=== PATIENT | female | born 1975 | race Caucasian/White ===

== ENCOUNTER 2017-07-07 08:33 | Inpatient (IN) | payer OTHER ==
[~2017-07-07 08:33] MED LIST: ACETAMINOPHEN 325 MG TAB PO; ALBUTEROL/IPRATROPIUM (NEB) 3 ML AMP NEB; BISACODYL (EC) 5 MG TAB PO; DOCUSATE SODIUM 100 MG CAP PO; LORAZEPAM 0.5 MG TAB PO; NACL 0.9% 3 ML SYG IV
[2017-07-07] MEDS ORDERED: METOPROLOL 25 MG TAB PO (09:00)
[2017-07-07] MEDS: ALBUTEROL/IPRATROPIUM (NEB) 3 ML AMP NEB ×4 (09:00→20:00)
[2017-07-07] MEDS ORDERED: hydrALAzine 20 MG INJ IV (09:30)
[2017-07-07] MEDS: PANTOPRAZOLE 40 MG INJ IV (09:57)
[2017-07-07] MEDS: CALCIUM CARBONATE 500 MG CHEW TAB PO ×4 (09:57→20:07)
[2017-07-07] MEDS: ASPIRIN 81 MG TAB PO (09:57)
[2017-07-07] MEDS: LEVOFLOXACIN 500 MG TAB PO (09:57)
[2017-07-07] MEDS: SOD CHLORIDE 0.9% 1,000 ML IV (09:58)
[2017-07-07] MEDS: ATENOLOL 50 MG TAB PO (09:58)
[2017-07-07] MEDS: morphine 2 MG INJ IV ×3 (09:59→20:06)
[2017-07-07 10:20] LABS: ADD MAN DIFF? NO
[2017-07-07 10:24] LABS: BASOPHIL # 0.1 10^3/ul (0.0-0.1); BASOPHILS % 0.4 % (0.0-2.0); EOSINOPHILS # 0.4 10^3/ul (0.0-0.5); EOSINOPHILS % 3.2 % (0.0-7.0); HEMATOCRIT 37.1 % (37.0-47.0); LYMPHOCYTES # 3.9 10^3/ul (0.8-2.9); LYMPHOCYTES % 27.8 % (15.0-51.0); MEAN CORPUSCULAR HEMOGLOBIN 25.7 pg (29.0-33.0); MEAN CORPUSCULAR HGB CONC 29.6 g/dl (32.0-37.0); MEAN CORPUSCULAR VOLUME 86.7 fl (82.0-101.0); MEAN PLATELET VOLUME 10.5 fl (7.4-10.4); MONOCYTES % 7.1 % (0.0-11.0); NEUTROPHIL # 8.4 10^3/ul (1.6-7.5); PLATELET COUNT 315 10^3/UL (140-415); RED BLOOD COUNT 4.28 10^6/ul (4.20-5.40); RED CELL DISTRIBUTION WIDTH 16.3 % (11.5-14.5)
[2017-07-07 10:24] LABS: WHITE BLOOD COUNT 13.8 10^3/ul (4.8-10.8)
[2017-07-07] MEDS: ONDANSETRON 4 MG INJ IV (10:34)
[2017-07-07 11:16] LABS: ANION GAP 14 (8-16); BLOOD UREA NITROGEN 28 mg/dl (7-20); CALCIUM 8.3 mg/dl (8.4-10.2); CARBON DIOXIDE 29 mmol/L (21-31); CHLORIDE 104 mmol/L (97-110); CREATINE KINASE 46 IU/L (23-200); CREATININE 0.69 mg/dl (0.44-1.00); GLUCOSE 78 mg/dl (70-220); POTASSIUM 4.4 mmol/L (3.5-5.1); SODIUM 143 mmol/L (135-144)
[2017-07-07 11:28] LABS: CK INDEX 2.7; CK-MB 1.26 ng/ml (0.0-2.4)
[2017-07-07 11:29] LABS: TROPONIN-I < 0.012 ng/ml (0.00-0.12)
[2017-07-07 13:36] LABS: ADD UMIC YES; UR ASCORBIC ACID NEGATIVE (NEGATIVE); UR BILIRUBIN (Dip) NEGATIVE (NEGATIVE); UR BLOOD (Dip) 3+ mg/dL (NEGATIVE); UR CLARITY SLIGHTLY CLOUDY (CLEAR); UR COLOR RED (YELLOW); UR GLUCOSE (Dip) NEGATIVE (NEGATIVE); UR KETONES (Dip) NEGATIVE (NEGATIVE); UR LEUKOCYTE ESTERASE (Dip) NEGATIVE Leu/ul (NEGATIVE); UR NITRITE (Dip) NEGATIVE (NEGATIVE); UR RBC > 182 /HPF (0-5); UR SPECIFIC GRAVITY (Dip) 1.023 (1.003-1.030); UR TOTAL PROTEIN (Dip) 2+ mg/dl (NEGATIVE); UR UROBILINOGEN (Dip) NEGATIVE (NEGATIVE); UR WBC 1 /HPF (0-5)
[2017-07-07 14:03] LABS: AMPHETAMINE/METHAMPHETAMINE NEGATIVE (NEGATIVE); BARBITURATES NEGATIVE (NEGATIVE); CANNABINOIDS NEGATIVE (NEGATIVE); COCAINE NEGATIVE (NEGATIVE)
[2017-07-07] MEDS: NAPROXEN 500 MG TAB PO ×2 (14:05→20:07)
[2017-07-07 14:06] LABS: BENZODIAZEPINES POSITIVE (NEGATIVE); OPIATES POSITIVE (NEGATIVE)
[2017-07-07] MEDS: NICOTINE (14 MG/24 HR) PATCH TRANSDERM (16:26)
[2017-07-07] MEDS: LORAZEPAM 2 MG INJ IV (16:32)
[2017-07-07] MEDS: ATORVASTATIN 20 MG TAB PO (20:06)
[2017-07-07] MEDS ORDERED: ZOLPIDEM 5 MG TAB PO (21:00)
[2017-07-08] MEDS: LORAZEPAM 2 MG INJ IV (00:08)
[2017-07-08] MEDS: HYDROCODONE/APAP (5/325) TAB PO ×2 (00:09→09:03)
[2017-07-08] MEDS: ALBUTEROL/IPRATROPIUM (NEB) 3 ML AMP NEB ×4 (00:20→12:58)
[2017-07-08] MEDS: LEVOFLOXACIN 500 MG TAB PO (06:39)
[2017-07-08] MEDS: morphine 2 MG INJ IV ×2 (06:39→10:54)
[2017-07-08] MEDS: PANTOPRAZOLE 40 MG INJ IV (06:39)
[2017-07-08] MEDS: ASPIRIN 81 MG TAB PO (08:47)
[2017-07-08] MEDS: ATENOLOL 50 MG TAB PO (08:47)
[2017-07-08] MEDS: NAPROXEN 500 MG TAB PO (08:47)
[2017-07-08] MEDS: CALCIUM CARBONATE 500 MG CHEW TAB PO ×2 (08:47→13:00)
[2017-07-08] MEDS: NICOTINE (14 MG/24 HR) PATCH TRANSDERM (08:48)
[2017-07-08 09:16] LABS: ADD MAN DIFF? NO
[2017-07-08 09:24] LABS: WHITE BLOOD COUNT 11.1 10^3/ul (4.8-10.8)
[2017-07-08 09:24] LABS: ABNORMAL IP MESSAGE 1; BASOPHIL # 0.1 10^3/ul (0.0-0.1); BASOPHILS % 0.5 % (0.0-2.0); EOSINOPHILS # 0.3 10^3/ul (0.0-0.5); EOSINOPHILS % 2.5 % (0.0-7.0); HEMATOCRIT 40.1 % (37.0-47.0); HEMOGLOBIN 11.6 g/dl (12.0-16.0); LYMPHOCYTES % 26.7 % (15.0-51.0); MEAN CORPUSCULAR HGB CONC 28.9 g/dl (32.0-37.0); MEAN CORPUSCULAR VOLUME 86.4 fl (82.0-101.0); MEAN PLATELET VOLUME 11.1 fl (7.4-10.4); MONOCYTE # 0.8 10^3/ul (0.3-0.9); MONOCYTES % 7.6 % (0.0-11.0); NEUTROPHIL # 6.9 10^3/ul (1.6-7.5); NEUTROPHILS % 62.4 % (39.0-77.0); PLATELET COUNT 311 10^3/UL (140-415); RED BLOOD COUNT 4.64 10^6/ul (4.20-5.40); RED CELL DISTRIBUTION WIDTH 16.7 % (11.5-14.5)
[2017-07-08 09:27] LABS: POSITIVE DIFF @See below
[2017-07-08 09:46] LABS: ANION GAP 14 (8-16); BLOOD UREA NITROGEN 29 mg/dl (7-20); CALCIUM 8.9 mg/dl (8.4-10.2); CARBON DIOXIDE 28 mmol/L (21-31); CHLORIDE 104 mmol/L (97-110); CREATININE 0.74 mg/dl (0.44-1.00); GLUCOSE 87 mg/dl (70-220); POTASSIUM 4.5 mmol/L (3.5-5.1); SODIUM 141 mmol/L (135-144)
[2017-07-08 11:23] LABS: CHOLESTEROL 162 mg/dl (100-200)
[2017-07-08 11:23] LABS: CHOL/HDL RATIO 3.4 RATIO; HDL CHOLESTEROL 47 mg/dl (34-88); LDL CHOLESTEROL,CALCULATED 82 mg/dl; TRIGLYCERIDES 167 mg/dl (0-149)
[2017-07-08 11:28] LABS: HEMOGLOBIN A1C 6.1 % (0-5.9)
[2017-07-08] MEDS: INFLUENZA VIRUS VACCINE 0.5 ML SYG IM* (12:00)
[2017-07-08] MEDS ORDERED: morphine LIQ (10 MG/5 ML) CUP PO (14:30)
== END 2017-07-08 14:50 | disposition home or self-care (01) | DRG 313 ==
LOC: TEL 08:33
DX: R07.89 Other chest pain (principal); Z68.43 Body mass index [BMI] 50.0-59.9, adult; Z99.81 Dependence on supplemental oxygen; G47.30 Sleep apnea, unspecified; J45.909 Unspecified asthma, uncomplicated; R10.9 Unspecified abdominal pain; R06.02 Shortness of breath; K59.09 Other constipation; M54.30 Sciatica, unspecified side; F17.200 Nicotine dependence, unspecified, uncomplicated; E66.01 Morbid (severe) obesity due to excess calories; E78.5 Hyperlipidemia, unspecified; F41.9 Anxiety disorder, unspecified; I10 Essential (primary) hypertension; R73.03 Prediabetes
CPT/HCPCS: 80048; 80061; 80307; 81001; 82550; 82553; 83036; 84443; 84484; 85025; 85378; 87086; 93306; 94640; 94660; 94664; 97161

== ENCOUNTER 2017-07-10 22:15 | Emergency (ER) | payer OTHER ==
[2017-07-10 23:49] LABS: ADD MAN DIFF? NO; BASOPHIL # 0.1 10^3/ul (0.0-0.1); BASOPHILS % 0.5 % (0.0-2.0); EOSINOPHILS # 0.3 10^3/ul (0.0-0.5); EOSINOPHILS % 2.3 % (0.0-7.0); HEMATOCRIT 38.7 % (37.0-47.0); HEMOGLOBIN 11.6 g/dl (12.0-16.0); LYMPHOCYTES # 2.8 10^3/ul (0.8-2.9); LYMPHOCYTES % 24.1 % (15.0-51.0); MEAN CORPUSCULAR HEMOGLOBIN 25.3 pg (29.0-33.0); MEAN CORPUSCULAR VOLUME 84.5 fl (82.0-101.0); MONOCYTE # 0.7 10^3/ul (0.3-0.9); MONOCYTES % 6.2 % (0.0-11.0); NEUTROPHIL # 7.8 10^3/ul (1.6-7.5); NEUTROPHILS % 66.5 % (39.0-77.0); PLATELET COUNT 307 10^3/UL (140-415); RED BLOOD COUNT 4.58 10^6/ul (4.20-5.40)
[2017-07-10 23:49] LABS: WHITE BLOOD COUNT 11.7 10^3/ul (4.8-10.8)
[2017-07-11] MEDS: LORAZEPAM 1 MG TAB PO (00:07)
[2017-07-11 00:15] LABS: ANION GAP 12 (8-16); BLOOD UREA NITROGEN 19 mg/dl (7-20); CALCIUM 8.6 mg/dl (8.4-10.2); CARBON DIOXIDE 33 mmol/L (21-31); CHLORIDE 102 mmol/L (97-110); CREATININE 0.84 mg/dl (0.44-1.00); GLUCOSE 135 mg/dl (70-220); INR 0.94; POTASSIUM 3.6 mmol/L (3.5-5.1); PROTIME 12.7 Sec (11.9-14.9); SODIUM 143 mmol/L (135-144)
[2017-07-11 00:16] LABS: PARTIAL THROMBOPLASTIN TIME 27.7 Sec (25.0-35.0)
[2017-07-11 00:28] LABS: B-TYPE NATRIURETIC PEPTIDE 2970 PG/ML (0-125)
[2017-07-11 00:34] LABS: TROPONIN-I < 0.012 ng/ml (0.00-0.12)
[2017-07-11] MEDS: FUROSEMIDE 40 MG INJ IV (00:48)
[2017-07-11 00:55] LABS: ETHANOL < 10.0 mg/dl
[2017-07-11 01:01] LABS: BENZODIAZEPINES Negative (NEGATIVE)
[2017-07-11 01:05] LABS: URINE BLOOD (Dip) POC Negative (NEGATIVE); URINE GLUCOSE (Dip) POC Negative (NEGATIVE); URINE KETONES (Dip) POC Negative (NEGATIVE); URINE LEUKOCYTE EST (Dip) POC Negative (NEGATIVE); URINE NITRITE (Dip) POC Negative (NEGATIVE); URINE TOTAL PROTEIN POC Negative (NEGATIVE)
[2017-07-11 03:26] LABS: AMPHETAMINE/METHAMPHETAMINE Negative (NEGATIVE); BARBITURATES Negative (NEGATIVE); CANNABINOIDS Negative (NEGATIVE); COCAINE Negative (NEGATIVE); OPIATES Positive (NEGATIVE)
== END 2017-07-11 02:05 | disposition home or self-care (01) ==
LOC: E/R 07-11 02:05
DX: I50.9 Heart failure, unspecified (principal); F41.9 Anxiety disorder, unspecified; E86.0 Dehydration; J45.909 Unspecified asthma, uncomplicated; I10 Essential (primary) hypertension; F17.210 Nicotine dependence, cigarettes, uncomplicated
CPT/HCPCS: 36415; 71045; 80048; 80306; 80307; 81003; 81025; 83880; 84484; 85025; 85378; 85610; 85730; 93005; 93970; 96374; 99285-25

== ENCOUNTER 2017-08-11 00:03 | Emergency (ER) | payer OTHER ==
[2017-08-11 01:56] LABS: ADD MAN DIFF? NO
[2017-08-11 02:00] LABS: BASOPHIL # 0.1 10^3/ul (0.0-0.1); BASOPHILS % 0.7 % (0.0-2.0); EOSINOPHILS # 0.3 10^3/ul (0.0-0.5); EOSINOPHILS % 2.1 % (0.0-7.0); HEMATOCRIT 39.4 % (37.0-47.0); HEMOGLOBIN 11.8 g/dl (12.0-16.0); LYMPHOCYTES # 3.1 10^3/ul (0.8-2.9); LYMPHOCYTES % 20.5 % (15.0-51.0); MEAN CORPUSCULAR HEMOGLOBIN 25.1 pg (29.0-33.0); MEAN CORPUSCULAR HGB CONC 29.9 g/dl (32.0-37.0); MEAN CORPUSCULAR VOLUME 83.7 fl (82.0-101.0); MEAN PLATELET VOLUME 10.6 fl (7.4-10.4); MONOCYTE # 0.7 10^3/ul (0.3-0.9); MONOCYTES % 4.9 % (0.0-11.0); NEUTROPHIL # 10.8 10^3/ul (1.6-7.5); NEUTROPHILS % 71.5 % (39.0-77.0); PLATELET COUNT 347 10^3/UL (140-415); RED BLOOD COUNT 4.71 10^6/ul (4.20-5.40); RED CELL DISTRIBUTION WIDTH 16.3 % (11.5-14.5)
[2017-08-11 02:00] LABS: WHITE BLOOD COUNT 15.1 10^3/ul (4.8-10.8)
[2017-08-11 02:21] LABS: CREATINE KINASE 36 IU/L (23-200)
[2017-08-11 02:24] LABS: ALANINE AMINOTRANSFERASE 22 IU/L (13-69); ALBUMIN 3.7 g/dl (3.3-4.9); ALBUMIN/GLOBULIN RATIO 0.88; ALKALINE PHOSPHATASE 82 IU/L (42-121); ANION GAP 11 (8-16); ASPARTATE AMINO TRANSFERASE 24 IU/L (15-46); BILIRUBIN,INDIRECT 0.3 mg/dl (0-1.1); BILIRUBIN,TOTAL 0.3 mg/dl (0.2-1.3); BLOOD UREA NITROGEN 21 mg/dl (7-20); CALCIUM 8.9 mg/dl (8.4-10.2); CARBON DIOXIDE 29 mmol/L (21-31); CHLORIDE 105 mmol/L (97-110); CREATININE 0.76 mg/dl (0.44-1.00); GLUCOSE 103 mg/dl (70-220); POTASSIUM 4.4 mmol/L (3.5-5.1); SODIUM 141 mmol/L (135-144); TOTAL PROTEIN 7.9 g/dl (6.1-8.1)
[2017-08-11 02:34] LABS: CK INDEX 5.7; CK-MB 2.05 ng/ml (0.0-2.4); TROPONIN-I 0.013 ng/ml (0.00-0.12)
[2017-08-11 02:35] LABS: B-TYPE NATRIURETIC PEPTIDE 1320 PG/ML (0-125); TROPONIN-I 0.014 ng/ml (0.00-0.12)
[2017-08-11] MEDS ORDERED: LORAZEPAM 2 MG INJ (03:10)
[2017-08-11] MEDS: LORAZEPAM 2 MG INJ IV (03:24)
== END 2017-08-11 09:20 | disposition home or self-care (01) ==
LOC: E/R 00:03
DX: R07.9 Chest pain, unspecified (principal); F41.9 Anxiety disorder, unspecified; J44.9 Chronic obstructive pulmonary disease, unspecified; I10 Essential (primary) hypertension; I50.9 Heart failure, unspecified; F17.210 Nicotine dependence, cigarettes, uncomplicated; Z79.82 Long term (current) use of aspirin
CPT/HCPCS: 36415; 71045; 80053; 82550; 82553; 82962; 83880; 84484; 85025; 93005; 96374; 99285-25

== ENCOUNTER 2017-09-06 19:42 | Emergency (ER) | payer OTHER ==
[2017-09-06] MEDS: FUROSEMIDE 40 MG INJ IV (20:37)
[2017-09-06] MEDS: IBUPROFEN 800 MG TAB PO (20:37)
[2017-09-06] MEDS: LORAZEPAM 1 MG TAB PO (20:48)
[2017-09-06] MEDS: KETOROLAC 30 MG INJ IV (20:48)
[2017-09-06 20:52] LABS: ADD MAN DIFF? NO
[2017-09-06 20:54] LABS: BASOPHIL # 0.1 10^3/ul (0.0-0.1); BASOPHILS % 0.5 % (0.0-2.0); EOSINOPHILS # 0.4 10^3/ul (0.0-0.5); EOSINOPHILS % 3.2 % (0.0-7.0); HEMATOCRIT 38.9 % (37.0-47.0); HEMOGLOBIN 11.4 g/dl (12.0-16.0); LYMPHOCYTES # 2.6 10^3/ul (0.8-2.9); LYMPHOCYTES % 22.3 % (15.0-51.0); MEAN CORPUSCULAR HEMOGLOBIN 24.8 pg (29.0-33.0); MEAN CORPUSCULAR HGB CONC 29.3 g/dl (32.0-37.0); MEAN CORPUSCULAR VOLUME 84.6 fl (82.0-101.0); MEAN PLATELET VOLUME 10.7 fl (7.4-10.4); MONOCYTE # 0.8 10^3/ul (0.3-0.9); MONOCYTES % 7.1 % (0.0-11.0); NEUTROPHIL # 7.8 10^3/ul (1.6-7.5); NEUTROPHILS % 66.6 % (39.0-77.0); PLATELET COUNT 337 10^3/UL (140-415); RED CELL DISTRIBUTION WIDTH 16.2 % (11.5-14.5)
[2017-09-06 20:54] LABS: WHITE BLOOD COUNT 11.6 10^3/ul (4.8-10.8)
[2017-09-06 21:29] LABS: ANION GAP 19 (8-16); BLOOD UREA NITROGEN 18 mg/dl (7-20); CALCIUM 9.1 mg/dl (8.4-10.2); CARBON DIOXIDE 24 mmol/L (21-31); CHLORIDE 106 mmol/L (97-110); GLUCOSE 76 mg/dl (70-220); POTASSIUM 4.3 mmol/L (3.5-5.1); SODIUM 145 mmol/L (135-144)
[2017-09-06 21:43] LABS: TROPONIN-I < 0.012 ng/ml (0.000-0.120)
== END 2017-09-06 22:05 | disposition home or self-care (01) ==
LOC: E/R 19:42
DX: R07.9 Chest pain, unspecified (principal); R06.00 Dyspnea, unspecified; I10 Essential (primary) hypertension; E11.9 Type 2 diabetes mellitus without complications; I50.9 Heart failure, unspecified; J45.909 Unspecified asthma, uncomplicated; J44.9 Chronic obstructive pulmonary disease, unspecified; F17.210 Nicotine dependence, cigarettes, uncomplicated; Z79.82 Long term (current) use of aspirin; Z79.84 Long term (current) use of oral hypoglycemic drugs
CPT/HCPCS: 36415; 71045; 80048; 84484; 85025; 96374; 96375; 99285-25

== ENCOUNTER 2017-09-13 16:57 | Emergency (ER) | payer OTHER ==
[2017-09-13 18:01] LABS: URINE PH (Dip) POC 6.5 (5.0-8.5)
[2017-09-13 18:01] LABS: URINE BLOOD (Dip) POC 3+ (NEGATIVE); URINE GLUCOSE (Dip) POC Negative (NEGATIVE); URINE KETONES (Dip) POC Negative (NEGATIVE); URINE LEUKOCYTE EST (Dip) POC Negative (NEGATIVE); URINE NITRITE (Dip) POC Negative (NEGATIVE); URINE TOTAL PROTEIN POC 3+ (NEGATIVE)
[2017-09-13 18:38] LABS: ADD UMIC YES; UR AMORPHOUS CRYSTAL MODERATE /HPF (NONE SEEN); UR ASCORBIC ACID NEGATIVE (NEGATIVE); UR BACTERIA MODERATE /HPF (NONE SEEN); UR BILIRUBIN (Dip) NEGATIVE (NEGATIVE); UR BLOOD (Dip) 2+ mg/dL (NEGATIVE); UR CLARITY TURBID (CLEAR); UR COLOR YELLOW (YELLOW); UR GLUCOSE (Dip) 1+ mg/dL (NEGATIVE); UR KETONES (Dip) NEGATIVE (NEGATIVE); UR LEUKOCYTE ESTERASE (Dip) TRACE Leu/ul (NEGATIVE); UR NITRITE (Dip) NEGATIVE (NEGATIVE); UR NONSQUAMOUS EPITHELIAL CELL 2 /HPF (NONE SEEN); UR RBC 110 /HPF (0-5); UR SPECIFIC GRAVITY (Dip) 1.028 (1.003-1.030); UR TOTAL PROTEIN (Dip) 3+ mg/dl (NEGATIVE); UR UROBILINOGEN (Dip) NEGATIVE (NEGATIVE); UR WBC 112 /HPF (0-5)
[2017-09-13] MEDS: morphine 4 MG/ML VIAL IV (19:30)
[2017-09-13] MEDS: SOD CHLORIDE 0.9% 500 ML IV (19:30)
[2017-09-13] MEDS: CEFTRIAXONE 1 GM/50 ML (PMX) 50 ML IVPB (19:30)
[2017-09-13] MEDS: KETOROLAC 30 MG INJ IV (19:31)
[2017-09-13] MEDS: ONDANSETRON 4 MG INJ IV (19:31)
== END 2017-09-13 21:30 | disposition home or self-care (01) ==
LOC: E/R 16:57
DX: N12 Tubulo-interstitial nephritis, not specified as acute or chronic (principal); J44.9 Chronic obstructive pulmonary disease, unspecified; I10 Essential (primary) hypertension; I50.9 Heart failure, unspecified; F17.210 Nicotine dependence, cigarettes, uncomplicated; Z79.82 Long term (current) use of aspirin; Z79.84 Long term (current) use of oral hypoglycemic drugs
CPT/HCPCS: 81001; 81003; 96374; 96375; 99284-25

== ENCOUNTER 2017-10-24 23:12 | Emergency (ER) | payer OTHER, MEDICAID ==
[2017-10-25 03:32] LABS: ADD MAN DIFF? NO
[2017-10-25 03:37] LABS: BASOPHIL # 0.1 10^3/ul (0.0-0.1); BASOPHILS % 0.7 % (0.0-2.0); EOSINOPHILS # 0.4 10^3/ul (0.0-0.5); EOSINOPHILS % 3.3 % (0.0-7.0); HEMATOCRIT 36.5 % (37.0-47.0); HEMOGLOBIN 10.7 g/dl (12.0-16.0); LYMPHOCYTES # 2.5 10^3/ul (0.8-2.9); LYMPHOCYTES % 22.5 % (15.0-51.0); MEAN CORPUSCULAR HEMOGLOBIN 23.9 pg (29.0-33.0); MEAN CORPUSCULAR HGB CONC 29.3 g/dl (32.0-37.0); MEAN CORPUSCULAR VOLUME 81.7 fl (82.0-101.0); MEAN PLATELET VOLUME 10.3 fl (7.4-10.4); MONOCYTE # 0.8 10^3/ul (0.3-0.9); MONOCYTES % 6.9 % (0.0-11.0); NEUTROPHIL # 7.3 10^3/ul (1.6-7.5); NEUTROPHILS % 66.2 % (39.0-77.0); PLATELET COUNT 323 10^3/UL (140-415); RED BLOOD COUNT 4.47 10^6/ul (4.20-5.40); RED CELL DISTRIBUTION WIDTH 16.5 % (11.5-14.5)
[2017-10-25] MEDS: SOD CHLORIDE 0.9% 500 ML IV (03:48)
[2017-10-25] MEDS: LABETALOL HCL 20MG INJ IV (03:48)
[2017-10-25 03:58] LABS: ANION GAP 10 (8-16); BLOOD UREA NITROGEN 18 mg/dl (7-20); CALCIUM 8.9 mg/dl (8.4-10.2); CARBON DIOXIDE 27 mmol/L (21-31); CHLORIDE 109 mmol/L (97-110); CREATININE 0.77 mg/dl (0.44-1.00); GLUCOSE 98 mg/dl (70-220); POTASSIUM 4.1 mmol/L (3.5-5.1); SODIUM 142 mmol/L (135-144)
[2017-10-25 04:09] LABS: B-TYPE NATRIURETIC PEPTIDE 1870 PG/ML (0-125); TROPONIN-I < 0.010 ng/ml (0.000-0.120)
[2017-10-25] MEDS: ASPIRIN 325 MG TAB PO (04:26)
[2017-10-25] MEDS: LORAZEPAM 1 MG TAB PO ×2 (04:27→08:44)
[2017-10-25] MEDS: LORAZEPAM 2 MG INJ IV (04:30)
[2017-10-25] MEDS: AMLODIPINE 10 MG TAB PO (04:34)
== END 2017-10-25 08:46 | disposition home or self-care (01) ==
LOC: E/R 23:12
DX: I10 Essential (primary) hypertension (principal); F41.9 Anxiety disorder, unspecified; I50.9 Heart failure, unspecified; J45.909 Unspecified asthma, uncomplicated; J44.9 Chronic obstructive pulmonary disease, unspecified; Z79.82 Long term (current) use of aspirin; Z79.84 Long term (current) use of oral hypoglycemic drugs; Z87.891 Personal history of nicotine dependence
CPT/HCPCS: 36415; 71045; 80048; 83880; 84484; 85025; 93005; 99285-25

== ENCOUNTER 2017-11-29 09:25 | Observation (INO) | payer OTHER ==
[2017-11-29] MEDS ORDERED: ALBUTEROL/IPRATROPIUM (NEB) 3 ML AMP HHN (10:30)
[2017-11-29] MEDS ORDERED: ACETAMINOPHEN 325 MG TAB PO (10:30)
[2017-11-29] MEDS ORDERED: NACL 0.9% 3 ML SYG IV (10:30)
[2017-11-29 10:48] LABS: ADD MAN DIFF? NO
[2017-11-29] MEDS ORDERED: DEXTROSE 50% 50 ML SYRINGE IV ×2 (11:00)
[2017-11-29] MEDS ORDERED: GLUCAGON 1 MG INJ IM (11:00)
[2017-11-29] MEDS ORDERED: GLUCOSE GEL 15 GRAM TUBE BUCCAL (11:00)
[2017-11-29] MEDS ORDERED: GLUCOSE GEL 15 GRAM TUBE PO ×2 (11:00)
[2017-11-29 11:03] LABS: ABNORMAL IP MESSAGE 1; BASOPHIL # 0.1 10^3/ul (0.0-0.1); BASOPHILS % 0.8 % (0.0-2.0); EOSINOPHILS # 0.9 10^3/ul (0.0-0.5); EOSINOPHILS % 8.4 % (0.0-7.0); HEMATOCRIT 37.2 % (37.0-47.0); HEMOGLOBIN 10.7 g/dl (12.0-16.0); LYMPHOCYTES # 2.4 10^3/ul (0.8-2.9); MEAN CORPUSCULAR HEMOGLOBIN 22.9 pg (29.0-33.0); MEAN CORPUSCULAR HGB CONC 28.8 g/dl (32.0-37.0); MEAN CORPUSCULAR VOLUME 79.5 fl (82.0-101.0); MEAN PLATELET VOLUME 10.2 fl (7.4-10.4); MONOCYTE # 0.6 10^3/ul (0.3-0.9); MONOCYTES % 5.3 % (0.0-11.0); NEUTROPHIL # 6.5 10^3/ul (1.6-7.5); NEUTROPHILS % 62.2 % (39.0-77.0); PLATELET COUNT 366 10^3/UL (140-415); RED BLOOD COUNT 4.68 10^6/ul (4.20-5.40); RED CELL DISTRIBUTION WIDTH 17.3 % (11.5-14.5)
[2017-11-29 11:03] LABS: WHITE BLOOD COUNT 10.5 10^3/ul (4.8-10.8)
[2017-11-29 11:04] LABS: POSITIVE DIFF @See below
[2017-11-29 11:10] LABS: HEMOGLOBIN A1C 6.6 % (0-5.9)
[2017-11-29 11:28] LABS: ALANINE AMINOTRANSFERASE 16 IU/L (13-69); ALBUMIN 3.1 g/dl (3.3-4.9); ALBUMIN/GLOBULIN RATIO 0.75; ALKALINE PHOSPHATASE 84 IU/L (42-121); ANION GAP 11 (8-16); ASPARTATE AMINO TRANSFERASE 18 IU/L (15-46); BILIRUBIN,INDIRECT 0.1 mg/dl (0-1.1); BILIRUBIN,TOTAL 0.1 mg/dl (0.2-1.3); BLOOD UREA NITROGEN 18 mg/dl (7-20); CALCIUM 8.5 mg/dl (8.4-10.2); CARBON DIOXIDE 27 mmol/L (21-31); CHLORIDE 105 mmol/L (97-110); CREATINE KINASE 27 IU/L (23-200); CREATININE 0.58 mg/dl (0.44-1.00); GLUCOSE 114 mg/dl (70-220); MAGNESIUM 1.8 mg/dl (1.7-2.5); PHOSPHORUS 4.9 mg/dl (2.5-4.9); SODIUM 139 mmol/L (135-144); TOTAL PROTEIN 7.2 g/dl (6.1-8.1)
[2017-11-29 11:37] LABS: CK INDEX 3.1; CK-MB 0.84 ng/ml (0.0-2.4); TROPONIN-I < 0.012 ng/ml (0.000-0.120)
[2017-11-29 11:41] LABS: FREE T4 (FREE THYROXINE) 1.73 ng/dl (0.64-1.79)
[2017-11-29 11:55] LABS: B-TYPE NATRIURETIC PEPTIDE 1090 PG/ML (0-125)
[2017-11-29 11:56] LABS: THYROID STIMULATING HORMONE 0.706 MIU/L (0.465-4.680)
[2017-11-29] MEDS: INSULIN ASPART [NOVOLOG] 3 ML PEN SC ×3 (12:00→21:00)
[2017-11-29] MEDS: FUROSEMIDE 20 MG INJ IV ×2 (12:57→17:24)
[2017-11-29] MEDS: LOSARTAN 50 MG TAB PO (12:58)
[2017-11-29] MEDS: HYDROCODONE/APAP (5/325) TAB PO ×2 (13:34→22:31)
[2017-11-29] MEDS: ALBUTEROL/IPRATROPIUM (NEB) 3 ML AMP HHN ×2 (13:49→20:07)
[2017-11-29 13:58] LABS: ADD UMIC YES; UR ASCORBIC ACID NEGATIVE (NEGATIVE); UR BILIRUBIN (Dip) NEGATIVE (NEGATIVE); UR BLOOD (Dip) NEGATIVE (NEGATIVE); UR CLARITY CLEAR (CLEAR); UR COLOR YELLOW (YELLOW); UR GLUCOSE (Dip) NEGATIVE (NEGATIVE); UR KETONES (Dip) NEGATIVE (NEGATIVE); UR LEUKOCYTE ESTERASE (Dip) NEGATIVE Leu/ul (NEGATIVE); UR MUCUS FEW /HPF (NONE SEEN); UR NITRITE (Dip) NEGATIVE (NEGATIVE); UR RBC 1 /HPF (0-5); UR SPECIFIC GRAVITY (Dip) 1.027 (1.003-1.030); UR SQUAMOUS EPITHELIAL CELL FEW /HPF (FEW); UR TOTAL PROTEIN (Dip) 1+ mg/dl (NEGATIVE); UR UROBILINOGEN (Dip) 1+ mg/dL (NEGATIVE); UR WBC 2 /HPF (0-5)
[2017-11-29 14:09] LABS: AADO2 Arterial 87.9 mmHg (7.0-24.0); Allen Test ACCEPTAB; Arterial Base Excess 3.7 mmol/L (-3.0-3); Arterial Blood Gas Oxygen Sat 93.1 mmHG (95.0-98.0); Arterial COHb 1.8 % (0.0-3.0); Arterial Fraction of Oxyhgb 91.2 % (93.0-99.0); Arterial HCO3 29.1 mmol/L (22.0-26.0); Arterial MetHb 0.2 % (0.0-1.5); Arterial Total Hemglobin 12.4 g/dl (12.0-18.0); Arterial pCO2 47.2 mmhg (35-45); MODE NASAL CANNULA; Site Right Radial
[2017-11-29 14:10] LABS: AMPHETAMINE/METHAMPHETAMINE Negative (NEGATIVE); BARBITURATES Negative (NEGATIVE); BENZODIAZEPINES Positive (NEGATIVE); CANNABINOIDS Negative (NEGATIVE); COCAINE Negative (NEGATIVE)
[2017-11-29 14:11] LABS: OPIATES Positive (NEGATIVE)
[2017-11-29] MEDS: morphine 4 MG/ML VIAL IV ×2 (16:18→21:26)
[2017-11-29 17:01] LABS: CREATINE KINASE 29 IU/L (23-200)
[2017-11-29 17:14] LABS: CK INDEX 2.5; CK-MB 0.72 ng/ml (0.0-2.4); TROPONIN-I < 0.012 ng/ml (0.000-0.120)
[2017-11-29] MEDS: INSULIN GLARGINE [LANTus] (100 UNITS/ML) SYG SC (20:00)
[2017-11-29] MEDS: LORAZEPAM 0.5 MG TAB PO (23:06)
[2017-11-30] MEDS: morphine 4 MG/ML VIAL IV ×4 (01:36→14:21)
[2017-11-30] MEDS: HYDROCODONE/APAP (5/325) TAB PO ×2 (05:08→11:56)
[2017-11-30] MEDS: FUROSEMIDE 20 MG INJ IV (06:00)
[2017-11-30] MEDS: INSULIN ASPART [NOVOLOG] 3 ML PEN SC ×2 (07:52→12:00)
[2017-11-30] MEDS: LOSARTAN 50 MG TAB PO (08:05)
[2017-11-30] MEDS: ASPIRIN 81 MG TAB PO (08:05)
[2017-11-30] MEDS: LORAZEPAM 0.5 MG TAB PO (08:05)
[2017-11-30] MEDS: ENOXAPARIN 40 MG/0.4 ML SYG SC (08:11)
[2017-11-30 08:56] LABS: ADD MAN DIFF? NO
[2017-11-30 09:08] LABS: ABNORMAL IP MESSAGE 1; BASOPHIL # 0.1 10^3/ul (0.0-0.1); BASOPHILS % 0.6 % (0.0-2.0); EOSINOPHILS # 0.7 10^3/ul (0.0-0.5); EOSINOPHILS % 6.7 % (0.0-7.0); HEMATOCRIT 41.8 % (37.0-47.0); HEMOGLOBIN 11.8 g/dl (12.0-16.0); LYMPHOCYTES # 2.4 10^3/ul (0.8-2.9); LYMPHOCYTES % 25.1 % (15.0-51.0); MEAN CORPUSCULAR HEMOGLOBIN 22.6 pg (29.0-33.0); MEAN CORPUSCULAR HGB CONC 28.2 g/dl (32.0-37.0); MEAN CORPUSCULAR VOLUME 79.9 fl (82.0-101.0); MEAN PLATELET VOLUME 11.6 fl (7.4-10.4); MONOCYTE # 0.5 10^3/ul (0.3-0.9); MONOCYTES % 5.6 % (0.0-11.0); NEUTROPHILS % 61.9 % (39.0-77.0); PLATELET COUNT 350 10^3/UL (140-415); RED BLOOD COUNT 5.23 10^6/ul (4.20-5.40); RED CELL DISTRIBUTION WIDTH 18.1 % (11.5-14.5)
[2017-11-30 09:08] LABS: WHITE BLOOD COUNT 9.7 10^3/ul (4.8-10.8)
[2017-11-30 09:13] LABS: POSITIVE DIFF @See below
[2017-11-30] MEDS: ALBUTEROL/IPRATROPIUM (NEB) 3 ML AMP HHN ×2 (09:20→13:44)
[2017-11-30 09:21] LABS: ANION GAP 16 (8-16); BLOOD UREA NITROGEN 23 mg/dl (7-20); CALCIUM 9.4 mg/dl (8.4-10.2); CARBON DIOXIDE 27 mmol/L (21-31); CHLORIDE 100 mmol/L (97-110); CREATININE 0.79 mg/dl (0.44-1.00); GLUCOSE 89 mg/dl (70-220); SODIUM 138 mmol/L (135-144)
[2017-11-30 09:32] LABS: CREATINE KINASE 33 IU/L (23-200)
[2017-11-30 09:37] LABS: CHOL/HDL RATIO 3.8 RATIO; CHOLESTEROL 131 mg/dl (100-200); HDL CHOLESTEROL 34 mg/dl (34-88); LDL CHOLESTEROL,CALCULATED 69 mg/dl; MAGNESIUM 1.9 mg/dl (1.7-2.5); TRIGLYCERIDES 141 mg/dl (0-149)
[2017-11-30 09:37] LABS: PHOSPHORUS 5.9 mg/dl (2.5-4.9)
[2017-11-30 09:42] LABS: CK-MB 0.66 ng/ml (0.0-2.4); TROPONIN-I < 0.012 ng/ml (0.000-0.120)
== END 2017-11-30 16:03 | disposition home or self-care (01) ==
LOC: 6WM 09:25
DX: R07.9 Chest pain, unspecified (principal); J45.909 Unspecified asthma, uncomplicated; I10 Essential (primary) hypertension; G47.33 Obstructive sleep apnea (adult) (pediatric); E11.9 Type 2 diabetes mellitus without complications; E78.5 Hyperlipidemia, unspecified; F17.200 Nicotine dependence, unspecified, uncomplicated; G89.29 Other chronic pain; M54.5 Low back pain; F41.9 Anxiety disorder, unspecified; E66.01 Morbid (severe) obesity due to excess calories; Z68.43 Body mass index [BMI] 50.0-59.9, adult
CPT/HCPCS: 36600; 80048; 80053; 80061; 80307; 81001; 82550; 82553; 82803; 82962; 83036; 83735; 83880; 84100; 84439; 84443; 84484; 84703; 85025; 93970; 94640; 94664; G0378

== ENCOUNTER 2017-12-15 00:48 | Inpatient (IN) | payer OTHER ==
[2017-12-15 02:04] LABS: ADD MAN DIFF? NO
[2017-12-15 02:06] LABS: BASOPHIL # 0.1 10^3/ul (0.0-0.1); BASOPHILS % 0.6 % (0.0-2.0); EOSINOPHILS # 0.7 10^3/ul (0.0-0.5); EOSINOPHILS % 6.6 % (0.0-7.0); HEMATOCRIT 38.4 % (37.0-47.0); HEMOGLOBIN 11.2 g/dl (12.0-16.0); LYMPHOCYTES # 1.9 10^3/ul (0.8-2.9); LYMPHOCYTES % 18.9 % (15.0-51.0); MEAN CORPUSCULAR HEMOGLOBIN 22.8 pg (29.0-33.0); MEAN CORPUSCULAR HGB CONC 29.2 g/dl (32.0-37.0); MEAN CORPUSCULAR VOLUME 78.2 fl (82.0-101.0); MEAN PLATELET VOLUME 10.1 fl (7.4-10.4); MONOCYTE # 0.7 10^3/ul (0.3-0.9); NEUTROPHIL # 6.7 10^3/ul (1.6-7.5); NEUTROPHILS % 66.7 % (39.0-77.0); PLATELET COUNT 352 10^3/UL (140-415); RED BLOOD COUNT 4.91 10^6/ul (4.20-5.40); RED CELL DISTRIBUTION WIDTH 18.3 % (11.5-14.5)
[2017-12-15 02:20] LABS: ALANINE AMINOTRANSFERASE 24 IU/L (13-69); ALBUMIN 3.7 g/dl (3.3-4.9); ALBUMIN/GLOBULIN RATIO 0.84; ALKALINE PHOSPHATASE 101 IU/L (42-121); ANION GAP 13 (8-16); ASPARTATE AMINO TRANSFERASE 21 IU/L (15-46); BILIRUBIN,INDIRECT 0.4 mg/dl (0-1.1); BILIRUBIN,TOTAL 0.4 mg/dl (0.2-1.3); BLOOD UREA NITROGEN 16 mg/dl (7-20); CALCIUM 8.8 mg/dl (8.4-10.2); CARBON DIOXIDE 28 mmol/L (21-31); CHLORIDE 104 mmol/L (97-110); CREATININE 0.73 mg/dl (0.44-1.00); GLUCOSE 94 mg/dl (70-220); POTASSIUM 3.7 mmol/L (3.5-5.1); SODIUM 141 mmol/L (135-144); TOTAL PROTEIN 8.1 g/dl (6.1-8.1)
[2017-12-15 02:32] LABS: B-TYPE NATRIURETIC PEPTIDE 2330 PG/ML (0-125); TROPONIN-I < 0.012 ng/ml (0.000-0.120)
[2017-12-15] MEDS: ALBUTEROL 0.083% (NEB) 2.5 MG/3 ML AMP NEB (03:00)
[2017-12-15] MEDS: IPRATROPIUM (NEB) 0.5 MG/2.5 ML AMP NEB (03:00)
[2017-12-15] MEDS: FUROSEMIDE 40 MG INJ IV ×3 (03:48→12:55)
[2017-12-15] MEDS ORDERED: ACETAMINOPHEN 325 MG TAB PO (04:30)
[2017-12-15] MEDS ORDERED: NITROGLYCERIN (SL) 0.4 MG TAB SL (04:30)
[2017-12-15] MEDS ORDERED: NACL 0.9% 3 ML SYG IV (04:30)
[2017-12-15] MEDS ORDERED: ONDANSETRON 4 MG INJ IV (04:30)
[2017-12-15] MEDS: ALBUTEROL/IPRATROPIUM (NEB) 3 ML AMP HHN ×3 (05:13→22:46)
[2017-12-15] MEDS: HYDROCODONE/APAP (5/325) TAB PO ×3 (05:46→23:13)
[2017-12-15] MEDS: PANTOPRAZOLE (EC) 40 MG TAB PO ×2 (06:04→08:26)
[2017-12-15] MEDS: ASPIRIN (EC) 81 MG TAB PO (08:25)
[2017-12-15] MEDS: metFORMIN 500 MG TAB PO ×2 (08:26→17:28)
[2017-12-15] MEDS: ATENOLOL 50 MG TAB PO (08:27)
[2017-12-15] MEDS: BENAZEPRIL 20 MG TAB PO (08:28)
[2017-12-15] MEDS: AMLODIPINE 10 MG TAB PO (08:28)
[2017-12-15] MEDS: NICOTINE (21 MG/24 HR) PATCH TRANSDERM (08:29)
[2017-12-15] MEDS: ISOSORBIDE MONONITRATE(SR)30 MG TAB PO (08:30)
[2017-12-15] MEDS: FLUTICASONE/VILANTEROL 100-25 INH (08:30)
[2017-12-15] MEDS: ENOXAPARIN 40 MG/0.4 ML SYG SC (08:43)
[2017-12-15] MEDS: LORAZEPAM 1 MG TAB PO (09:52)
[2017-12-15 11:17] LABS: CREATINE KINASE 28 IU/L (23-200)
[2017-12-15 11:28] LABS: CK-MB 0.78 ng/ml (0.0-2.4); TROPONIN-I < 0.012 ng/ml (0.000-0.120)
[2017-12-15 11:29] LABS: CK INDEX 2.8
[2017-12-15 13:48] LABS: CREATINE KINASE 30 IU/L (23-200)
[2017-12-15 13:59] LABS: CK INDEX 2.3; TROPONIN-I < 0.012 ng/ml (0.000-0.120)
[2017-12-15 18:23] LABS: AMPHETAMINE/METHAMPHETAMINE NEGATIVE (NEGATIVE); BARBITURATES NEGATIVE (NEGATIVE); BENZODIAZEPINES NEGATIVE (NEGATIVE); CANNABINOIDS NEGATIVE (NEGATIVE); COCAINE NEGATIVE (NEGATIVE); OPIATES POSITIVE (NEGATIVE)
[2017-12-15] MEDS: morphine 2 MG INJ IV (22:12)
[2017-12-16] MEDS: LORAZEPAM 1 MG TAB PO (00:50)
[2017-12-16] MEDS ORDERED: SALINE 0.65% 45 ML NAS SPRAY NASAL (01:30)
[2017-12-16] MEDS: morphine 2 MG INJ IV ×2 (01:55→02:00)
[2017-12-16] MEDS: NAPROXEN 500 MG TAB PO (02:02)
[2017-12-16] MEDS: GUAIFENESIN 20 MG/ML 5ML CUP PO (02:02)
[2017-12-16] MEDS: RANITIDINE 150 MG TAB PO (02:07)
[2017-12-16 06:52] LABS: ADD MAN DIFF? NO
[2017-12-16 06:58] LABS: ABNORMAL IP MESSAGE 1; BASOPHIL # 0.1 10^3/ul (0.0-0.1); BASOPHILS % 0.6 % (0.0-2.0); EOSINOPHILS # 0.5 10^3/ul (0.0-0.5); EOSINOPHILS % 5.8 % (0.0-7.0); HEMATOCRIT 36.4 % (37.0-47.0); HEMOGLOBIN 10.5 g/dl (12.0-16.0); MEAN CORPUSCULAR HEMOGLOBIN 22.6 pg (29.0-33.0); MEAN CORPUSCULAR HGB CONC 28.8 g/dl (32.0-37.0); MEAN CORPUSCULAR VOLUME 78.3 fl (82.0-101.0); MEAN PLATELET VOLUME 10.7 fl (7.4-10.4); MONOCYTE # 0.5 10^3/ul (0.3-0.9); MONOCYTES % 5.4 % (0.0-11.0); NEUTROPHIL # 5.9 10^3/ul (1.6-7.5); NEUTROPHILS % 65.9 % (39.0-77.0); PLATELET COUNT 343 10^3/UL (140-415); RED BLOOD COUNT 4.65 10^6/ul (4.20-5.40); RED CELL DISTRIBUTION WIDTH 18.6 % (11.5-14.5)
[2017-12-16 06:58] LABS: WHITE BLOOD COUNT 8.9 10^3/ul (4.8-10.8)
[2017-12-16] MEDS: PANTOPRAZOLE (EC) 40 MG TAB PO (07:08)
[2017-12-16] MEDS: HYDROCODONE/APAP (5/325) TAB PO (07:08)
[2017-12-16 07:22] LABS: POSITIVE DIFF @See below
[2017-12-16 07:34] LABS: IRON 31 ug/dl (35-150)
[2017-12-16 07:44] LABS: % IRON SATURATION 8 % SAT (22-52); TOTAL IRON BINDING CAPACITY 391 ug/dl (241-421)
[2017-12-16 07:48] LABS: ALANINE AMINOTRANSFERASE 24 IU/L (13-69); ALBUMIN 3.2 g/dl (3.3-4.9); ALBUMIN/GLOBULIN RATIO 0.78; ALKALINE PHOSPHATASE 87 IU/L (42-121); ANION GAP 13 (8-16); ASPARTATE AMINO TRANSFERASE 19 IU/L (15-46); BILIRUBIN,INDIRECT 0.3 mg/dl (0-1.1); BILIRUBIN,TOTAL 0.3 mg/dl (0.2-1.3); BLOOD UREA NITROGEN 22 mg/dl (7-20); CALCIUM 8.9 mg/dl (8.4-10.2); CARBON DIOXIDE 28 mmol/L (21-31); CHLORIDE 103 mmol/L (97-110); CREATININE 0.83 mg/dl (0.44-1.00); GLUCOSE 124 mg/dl (70-220); MAGNESIUM 1.8 mg/dl (1.7-2.5); POTASSIUM 3.8 mmol/L (3.5-5.1); SODIUM 140 mmol/L (135-144); TOTAL PROTEIN 7.3 g/dl (6.1-8.1)
[2017-12-16] MEDS: ISOSORBIDE MONONITRATE(SR)30 MG TAB PO (08:40)
[2017-12-16] MEDS: metFORMIN 500 MG TAB PO (08:40)
[2017-12-16] MEDS: BENAZEPRIL 20 MG TAB PO (08:40)
[2017-12-16] MEDS: ASPIRIN (EC) 81 MG TAB PO (08:40)
[2017-12-16] MEDS: ATENOLOL 50 MG TAB PO (08:41)
[2017-12-16] MEDS: AMLODIPINE 10 MG TAB PO (08:41)
[2017-12-16] MEDS: ENOXAPARIN 40 MG/0.4 ML SYG SC (08:42)
[2017-12-16] MEDS: FLUTICASONE/VILANTEROL 100-25 INH (08:42)
[2017-12-16] MEDS: FUROSEMIDE 40 MG INJ IV (08:42)
[2017-12-16] MEDS: NICOTINE (21 MG/24 HR) PATCH TRANSDERM (08:42)
[2017-12-16 09:06] LABS: FERRITIN 8.7 ng/ml (6.2-137.0)
== END 2017-12-16 16:05 | disposition home or self-care (01) | DRG 292 ==
LOC: E/R 00:48 → TEL 03:29
DX: I11.0 Hypertensive heart disease with heart failure (principal); Z68.42 Body mass index [BMI] 45.0-49.9, adult; I50.31 Acute diastolic (congestive) heart failure; E66.01 Morbid (severe) obesity due to excess calories; D64.9 Anemia, unspecified; J44.9 Chronic obstructive pulmonary disease, unspecified; F17.200 Nicotine dependence, unspecified, uncomplicated
CPT/HCPCS: 36415; 71045; 80053; 80307; 81025; 82550; 82553; 82728; 83540; 83735; 83880; 84484; 85025; 93005; 94640; 94660; 94664; 99285-25

== ENCOUNTER 2017-12-20 19:59 | Inpatient (IN) | payer OTHER ==
[2017-12-20 22:08] LABS: ADD MAN DIFF? NO
[2017-12-20 22:11] LABS: WHITE BLOOD COUNT 8.8 10^3/ul (4.8-10.8)
[2017-12-20 22:11] LABS: ABNORMAL IP MESSAGE 1; BASOPHIL # 0.1 10^3/ul (0.0-0.1); BASOPHILS % 0.7 % (0.0-2.0); EOSINOPHILS # 0.5 10^3/ul (0.0-0.5); EOSINOPHILS % 5.2 % (0.0-7.0); HEMATOCRIT 38.1 % (37.0-47.0); HEMOGLOBIN 10.8 g/dl (12.0-16.0); LYMPHOCYTES # 2.1 10^3/ul (0.8-2.9); LYMPHOCYTES % 24.1 % (15.0-51.0); MEAN CORPUSCULAR HEMOGLOBIN 22.4 pg (29.0-33.0); MEAN CORPUSCULAR HGB CONC 28.3 g/dl (32.0-37.0); MEAN CORPUSCULAR VOLUME 78.9 fl (82.0-101.0); MEAN PLATELET VOLUME 9.9 fl (7.4-10.4); MONOCYTE # 0.6 10^3/ul (0.3-0.9); MONOCYTES % 6.4 % (0.0-11.0); NEUTROPHIL # 5.6 10^3/ul (1.6-7.5); NEUTROPHILS % 63.4 % (39.0-77.0); PLATELET COUNT 347 10^3/UL (140-415); RED BLOOD COUNT 4.83 10^6/ul (4.20-5.40); RED CELL DISTRIBUTION WIDTH 18.1 % (11.5-14.5)
[2017-12-20 22:21] LABS: POSITIVE DIFF @See below
[2017-12-20 22:36] LABS: ANION GAP 11 (8-16); BLOOD UREA NITROGEN 25 mg/dl (7-20); CALCIUM 8.8 mg/dl (8.4-10.2); CARBON DIOXIDE 30 mmol/L (21-31); CHLORIDE 102 mmol/L (97-110); CREATININE 0.93 mg/dl (0.44-1.00); GLUCOSE 101 mg/dl (70-220); POTASSIUM 4.4 mmol/L (3.5-5.1); SODIUM 139 mmol/L (135-144)
[2017-12-20 22:47] LABS: TROPONIN-I < 0.012 ng/ml (0.000-0.120)
[2017-12-20] MEDS: morphine 4 MG/ML VIAL IV (23:37)
[2017-12-20] MEDS: ONDANSETRON 4 MG INJ IV (23:37)
[2017-12-21] MEDS ORDERED: GLUCOSE GEL 15 GRAM TUBE PO ×2 (04:00)
[2017-12-21] MEDS ORDERED: GLUCOSE GEL 15 GRAM TUBE BUCCAL (04:00)
[2017-12-21] MEDS ORDERED: DEXTROSE 50% 50 ML SYRINGE IV ×2 (04:00)
[2017-12-21] MEDS ORDERED: GLUCAGON 1 MG INJ IM (04:00)
[2017-12-21] MEDS: morphine 2 MG INJ IV (04:08)
[2017-12-21 05:35] LABS: CREATINE KINASE 28 IU/L (23-200)
[2017-12-21 05:46] LABS: CK-MB 1.11 ng/ml (0.0-2.4); TROPONIN-I < 0.012 ng/ml (0.000-0.120)
[2017-12-21] MEDS: INSULIN ASPART [NOVOLOG] 3 ML PEN SC ×4 (07:55→20:16)
[2017-12-21] MEDS ORDERED: ONDANSETRON 4 MG INJ IV (08:00)
[2017-12-21] MEDS ORDERED: NACL 0.9% 3 ML SYG IV (08:00)
[2017-12-21] MEDS ORDERED: ACETAMINOPHEN 325 MG TAB PO (08:00)
[2017-12-21] MEDS ORDERED: NAPROXEN 500 MG TAB PO (08:00)
[2017-12-21] MEDS ORDERED: LORAZEPAM 1 MG TAB PO (08:00)
[2017-12-21] MEDS: METHYLPREDNISOLONE 125 MG INJ IV (08:18)
[2017-12-21] MEDS: FERROUS SULFATE (EC) 325 MG TAB PO ×2 (08:18→20:14)
[2017-12-21] MEDS: FUROSEMIDE 40 MG INJ IV (08:18)
[2017-12-21] MEDS: ASCORBIC ACID 500 MG TAB PO (08:18)
[2017-12-21] MEDS: BENAZEPRIL 20 MG TAB PO (08:19)
[2017-12-21] MEDS: ASPIRIN (EC) 81 MG TAB PO (08:19)
[2017-12-21] MEDS: metFORMIN 500 MG TAB PO ×2 (08:19→17:45)
[2017-12-21] MEDS: AMLODIPINE 10 MG TAB PO (08:19)
[2017-12-21] MEDS: HYDROCODONE/APAP (5/325) TAB NGT (08:20)
[2017-12-21] MEDS: PANTOPRAZOLE (EC) 40 MG TAB PO (08:22)
[2017-12-21] MEDS: ENOXAPARIN 40 MG/0.4 ML SYG SC (08:30)
[2017-12-21 09:13] LABS: ADD MAN DIFF? NO
[2017-12-21 09:20] LABS: ABNORMAL IP MESSAGE 1; BASOPHIL # 0.1 10^3/ul (0.0-0.1); BASOPHILS % 0.9 % (0.0-2.0); EOSINOPHILS # 0.6 10^3/ul (0.0-0.5); EOSINOPHILS % 5.7 % (0.0-7.0); HEMATOCRIT 37.6 % (37.0-47.0); HEMOGLOBIN 10.5 g/dl (12.0-16.0); LYMPHOCYTES # 2.5 10^3/ul (0.8-2.9); LYMPHOCYTES % 25.5 % (15.0-51.0); MEAN CORPUSCULAR HEMOGLOBIN 22.2 pg (29.0-33.0); MEAN CORPUSCULAR HGB CONC 27.9 g/dl (32.0-37.0); MEAN CORPUSCULAR VOLUME 79.7 fl (82.0-101.0); MEAN PLATELET VOLUME 10.4 fl (7.4-10.4); MONOCYTE # 0.8 10^3/ul (0.3-0.9); MONOCYTES % 8.3 % (0.0-11.0); NEUTROPHIL # 5.7 10^3/ul (1.6-7.5); NEUTROPHILS % 59.4 % (39.0-77.0); PLATELET COUNT 362 10^3/UL (140-415); RED BLOOD COUNT 4.72 10^6/ul (4.20-5.40); RED CELL DISTRIBUTION WIDTH 18.5 % (11.5-14.5)
[2017-12-21 09:20] LABS: WHITE BLOOD COUNT 9.6 10^3/ul (4.8-10.8)
[2017-12-21 09:27] LABS: POSITIVE DIFF @See below
[2017-12-21 09:54] LABS: ALANINE AMINOTRANSFERASE 27 IU/L (13-69); ALBUMIN 3.5 g/dl (3.3-4.9); ALBUMIN/GLOBULIN RATIO 0.77; ALKALINE PHOSPHATASE 87 IU/L (42-121); ANION GAP 12 (8-16); ASPARTATE AMINO TRANSFERASE 21 IU/L (15-46); BILIRUBIN,INDIRECT 0.2 mg/dl (0-1.1); BILIRUBIN,TOTAL 0.2 mg/dl (0.2-1.3); BLOOD UREA NITROGEN 23 mg/dl (7-20); CALCIUM 8.9 mg/dl (8.4-10.2); CARBON DIOXIDE 31 mmol/L (21-31); CHLORIDE 101 mmol/L (97-110); CREATININE 0.81 mg/dl (0.44-1.00); GLUCOSE 118 mg/dl (70-220); POTASSIUM 3.9 mmol/L (3.5-5.1); SODIUM 140 mmol/L (135-144)
[2017-12-21 10:35] LABS: CREATINE KINASE 30 IU/L (23-200)
[2017-12-21 10:48] LABS: CK INDEX 3.8; CK-MB 1.15 ng/ml (0.0-2.4); TROPONIN-I < 0.012 ng/ml (0.000-0.120)
[2017-12-21] MEDS ORDERED: ZOLPIDEM 5 MG TAB PO (11:30)
[2017-12-21] MEDS: NICOTINE (21 MG/24 HR) PATCH TRANSDERM (11:39)
[2017-12-21] MEDS: FLUTICASONE/VILANTEROL 100-25 INH (11:40)
[2017-12-21] MEDS: traMADol 50 MG TAB PO (15:24)
[2017-12-21] MEDS: HYDROCODONE/APAP (5/325) TAB PO (17:57)
[2017-12-21] MEDS: BISACODYL (EC) 5 MG TAB PO (20:14)
[2017-12-21] MEDS: SALINE 0.65% 45 ML NAS SPRAY NASAL (20:16)
[2017-12-21] MEDS: IPRATROPIUM (NEB) 0.5 MG/2.5 ML AMP NEB (21:32)
[2017-12-21] MEDS: LEVALBUTEROL (NEB) 0.63 MG/3 ML AMP HHN (21:32)
[2017-12-22] MEDS: FLUTICASONE 0.05% 16 GM NAS SPRAY NASAL ×2 (00:20→08:09)
[2017-12-22] MEDS: FUROSEMIDE 40 MG INJ IV (06:34)
[2017-12-22] MEDS: INSULIN ASPART [NOVOLOG] 3 ML PEN SC ×2 (07:55→11:50)
[2017-12-22] MEDS: FERROUS SULFATE (EC) 325 MG TAB PO (08:05)
[2017-12-22] MEDS: ASCORBIC ACID 500 MG TAB PO (08:05)
[2017-12-22] MEDS: HYDROCODONE/APAP (5/325) TAB PO ×2 (08:05→12:06)
[2017-12-22] MEDS: ASPIRIN (EC) 81 MG TAB PO (08:05)
[2017-12-22] MEDS: PANTOPRAZOLE (EC) 40 MG TAB PO (08:05)
[2017-12-22] MEDS: metFORMIN 500 MG TAB PO (08:06)
[2017-12-22] MEDS: BENAZEPRIL 20 MG TAB PO (08:06)
[2017-12-22] MEDS: NICOTINE (21 MG/24 HR) PATCH TRANSDERM (08:07)
[2017-12-22] MEDS: METOPROLOL 25 MG TAB PO (08:07)
[2017-12-22] MEDS: ENOXAPARIN 40 MG/0.4 ML SYG SC (08:08)
[2017-12-22] MEDS: FLUTICASONE/VILANTEROL 100-25 INH (08:09)
[2017-12-22 08:47] LABS: ADD MAN DIFF? NO
[2017-12-22 08:50] LABS: ABNORMAL IP MESSAGE 1; BASOPHILS % 0.2 % (0.0-2.0); EOSINOPHILS % 0.2 % (0.0-7.0); HEMATOCRIT 43.7 % (37.0-47.0); HEMOGLOBIN 12.4 g/dl (12.0-16.0); LYMPHOCYTES # 1.4 10^3/ul (0.8-2.9); LYMPHOCYTES % 10.7 % (15.0-51.0); MEAN CORPUSCULAR HEMOGLOBIN 22.8 pg (29.0-33.0); MEAN CORPUSCULAR HGB CONC 28.4 g/dl (32.0-37.0); MEAN CORPUSCULAR VOLUME 80.2 fl (82.0-101.0); MONOCYTE # 0.8 10^3/ul (0.3-0.9); MONOCYTES % 6.4 % (0.0-11.0); NEUTROPHIL # 10.6 10^3/ul (1.6-7.5); NEUTROPHILS % 82.1 % (39.0-77.0); RED BLOOD COUNT 5.45 10^6/ul (4.20-5.40); RED CELL DISTRIBUTION WIDTH 18.6 % (11.5-14.5)
[2017-12-22 08:50] LABS: WHITE BLOOD COUNT 12.9 10^3/ul (4.8-10.8)
[2017-12-22 08:58] LABS: POSITIVE DIFF @See below
[2017-12-22 09:24] LABS: ANION GAP 17 (8-16); BLOOD UREA NITROGEN 29 mg/dl (7-20); CALCIUM 9.5 mg/dl (8.4-10.2); CARBON DIOXIDE 30 mmol/L (21-31); CHLORIDE 99 mmol/L (97-110); GLUCOSE 99 mg/dl (70-220); MAGNESIUM 1.7 mg/dl (1.7-2.5); PHOSPHORUS 4.8 mg/dl (2.5-4.9); POTASSIUM 4.6 mmol/L (3.5-5.1); SODIUM 141 mmol/L (135-144)
[2017-12-22 10:28] LABS: ANISOCYTOSIS 2+ (0-0); BAND NEUTROPHILS #M 0.1 10^3/ul (0.0-0.6); BAND NEUTROPHILS % (M) 1 % (0-4); BURR CELLS 2+ (0-0); EOSINOPHILS % (M) 2 % (0-7); HYPOCHROMASIA 1+ (0-0); LYMPHOCYTES #M 1.5 10^3/ul (0.8-2.9); LYMPHOCYTES % (M) 12 % (15-51); MICROCYTOSIS 2+ (0-0); MONOCYTE #M 0.7 10^3/ul (0.3-0.9); MONOCYTES % (M) 6 % (0-11); OVALOCYTES 1+ (0-0); PLATELET ESTIMATE NORMAL; POIKILOCYTOSIS 2+ (0-0); POLYCHROMASIA 1+ (0-0); SEG NEUT #M 10.2 10^3/ul (1.6-7.5); SEGMENTED NEUTROPHILS (M) % 79 % (39-77); SMUDGE%M 67 % (0-0)
[2017-12-22 10:54] LABS: PLATELET COUNT 250 10^3/UL (140-415)
== END 2017-12-22 14:00 | disposition home or self-care (01) | DRG 292 ==
LOC: TEL 12-21 00:25 → E/R 19:59
DX: I11.0 Hypertensive heart disease with heart failure (principal); Z68.43 Body mass index [BMI] 50.0-59.9, adult; E66.2 Morbid (severe) obesity with alveolar hypoventilation; I50.33 Acute on chronic diastolic (congestive) heart failure; G89.29 Other chronic pain; M54.9 Dorsalgia, unspecified; Z91.14 Patient's other noncompliance with medication regimen; E11.9 Type 2 diabetes mellitus without complications; J45.909 Unspecified asthma, uncomplicated; E78.5 Hyperlipidemia, unspecified; Z76.5 Malingerer [conscious simulation]; Z72.0 Tobacco use
CPT/HCPCS: 71045; 80048; 80053; 82550; 82553; 82962; 83735; 84100; 84484; 85025; 93005; 94660; 94664; G0378

== ENCOUNTER 2018-02-02 03:00 | Emergency (ER) | payer OTHER ==
[2018-02-02 06:00] LABS: ADD MAN DIFF? NO
[2018-02-02 06:01] LABS: WHITE BLOOD COUNT 10.3 10^3/ul (4.8-10.8)
[2018-02-02 06:01] LABS: ABNORMAL IP MESSAGE 1; BASOPHIL # 0.1 10^3/ul (0.0-0.1); BASOPHILS % 0.5 % (0.0-2.0); EOSINOPHILS # 0.3 10^3/ul (0.0-0.5); EOSINOPHILS % 3.1 % (0.0-7.0); HEMATOCRIT 43.6 % (37.0-47.0); HEMOGLOBIN 12.9 g/dl (12.0-16.0); LYMPHOCYTES # 2.2 10^3/ul (0.8-2.9); LYMPHOCYTES % 21.2 % (15.0-51.0); MEAN CORPUSCULAR HEMOGLOBIN 25.3 pg (29.0-33.0); MEAN CORPUSCULAR HGB CONC 29.6 g/dl (32.0-37.0); MEAN CORPUSCULAR VOLUME 85.7 fl (82.0-101.0); MEAN PLATELET VOLUME 10.4 fl (7.4-10.4); MONOCYTE # 0.6 10^3/ul (0.3-0.9); MONOCYTES % 5.4 % (0.0-11.0); NEUTROPHIL # 7.2 10^3/ul (1.6-7.5); NEUTROPHILS % 69.5 % (39.0-77.0); PLATELET COUNT 273 10^3/UL (140-415); RED BLOOD COUNT 5.09 10^6/ul (4.20-5.40)
[2018-02-02 06:03] LABS: POSITIVE DIFF @See below
[2018-02-02] MEDS: LORAZEPAM 2 MG INJ IV ×2 (06:23→06:58)
[2018-02-02 06:28] LABS: ANION GAP 9 (5-13); BLOOD UREA NITROGEN 21 mg/dl (7-20); CALCIUM 9.2 mg/dl (8.4-10.2); CARBON DIOXIDE 31 mmol/L (21-31); CHLORIDE 103 mmol/L (97-110); CREATININE 0.87 mg/dl (0.44-1.00); Estimated GFR > 60 mL/min (>60); GLUCOSE 97 mg/dl (70-220); POTASSIUM 3.4 mmol/L (3.5-5.1); SODIUM 143 mmol/L (135-144)
[2018-02-02 06:40] LABS: TROPONIN-I < 0.012 ng/ml (0.000-0.120)
[2018-02-02 07:14] LABS: B-TYPE NATRIURETIC PEPTIDE 2860 PG/ML (0-125)
[2018-02-02] MEDS: FUROSEMIDE 40 MG INJ IV (08:25)
== END 2018-02-02 13:22 | disposition home or self-care (01) ==
LOC: E/R 03:00
DX: I50.9 Heart failure, unspecified (principal); F41.1 Generalized anxiety disorder; I11.0 Hypertensive heart disease with heart failure; F17.210 Nicotine dependence, cigarettes, uncomplicated; E11.9 Type 2 diabetes mellitus without complications; Z79.82 Long term (current) use of aspirin; Z79.84 Long term (current) use of oral hypoglycemic drugs
CPT/HCPCS: 36415; 71045; 80048; 83880; 84484; 85025; 93005; 96374; 96375; 99285-25

== ENCOUNTER 2018-02-08 03:52 | Observation (INO) | payer OTHER ==
[2018-02-08 04:27] LABS: ADD MAN DIFF? NO
[2018-02-08 04:28] LABS: ABNORMAL IP MESSAGE 1; BASOPHIL # 0.1 10^3/ul (0.0-0.1); BASOPHILS % 0.7 % (0.0-2.0); EOSINOPHILS # 0.4 10^3/ul (0.0-0.5); EOSINOPHILS % 3.9 % (0.0-7.0); HEMATOCRIT 40.8 % (37.0-47.0); HEMOGLOBIN 11.9 g/dl (12.0-16.0); LYMPHOCYTES # 2.1 10^3/ul (0.8-2.9); LYMPHOCYTES % 21.4 % (15.0-51.0); MEAN CORPUSCULAR HEMOGLOBIN 25.3 pg (29.0-33.0); MEAN CORPUSCULAR HGB CONC 29.2 g/dl (32.0-37.0); MEAN CORPUSCULAR VOLUME 86.8 fl (82.0-101.0); MEAN PLATELET VOLUME 10.3 fl (7.4-10.4); MONOCYTE # 0.6 10^3/ul (0.3-0.9); MONOCYTES % 6.1 % (0.0-11.0); NEUTROPHIL # 6.8 10^3/ul (1.6-7.5); NEUTROPHILS % 67.7 % (39.0-77.0); PLATELET COUNT 273 10^3/UL (140-415); RED CELL DISTRIBUTION WIDTH 23.8 % (11.5-14.5)
[2018-02-08 04:31] LABS: POSITIVE DIFF @See below
[2018-02-08 04:46] LABS: ALBUMIN/GLOBULIN RATIO 1.02; ANION GAP 8 (5-13); BILIRUBIN,TOTAL 0.3 mg/dl (0.2-1.3); Estimated GFR > 60 mL/min (>60)
[2018-02-08 04:58] LABS: ALANINE AMINOTRANSFERASE 21 IU/L (13-69); ALBUMIN 3.8 g/dl (3.3-4.9); ALKALINE PHOSPHATASE 81 IU/L (42-121); ASPARTATE AMINO TRANSFERASE 27 IU/L (15-46); B-TYPE NATRIURETIC PEPTIDE 2350 PG/ML (0-125); BILIRUBIN,INDIRECT 0.3 mg/dl (0-1.1); BLOOD UREA NITROGEN 18 mg/dl (7-20); CALCIUM 8.7 mg/dl (8.4-10.2); CARBON DIOXIDE 29 mmol/L (21-31); CHLORIDE 104 mmol/L (97-110); CREATININE 0.72 mg/dl (0.44-1.00); GLUCOSE 94 mg/dl (70-220); POTASSIUM 4.2 mmol/L (3.5-5.1); SODIUM 141 mmol/L (135-144); TOTAL PROTEIN 7.5 g/dl (6.1-8.1); TROPONIN-I < 0.012 ng/ml (0.000-0.120)
[2018-02-08] MEDS: AZTREONAM 1 GM/NS (PMX) 50 ML IVPB (06:24)
[2018-02-08] MEDS ORDERED: ONDANSETRON 4 MG INJ IV (06:30)
[2018-02-08] MEDS ORDERED: BISACODYL (EC) 5 MG TAB PO (06:30)
[2018-02-08] MEDS ORDERED: DOCUSATE SODIUM 100 MG CAP PO (06:30)
[2018-02-08] MEDS ORDERED: VANCOMYCIN IV PER PHARMACY XX (06:30)
[2018-02-08] MEDS ORDERED: NACL 0.9% 3 ML SYG IV (06:30)
[2018-02-08] MEDS ORDERED: ACETAMINOPHEN 325 MG TAB PO (06:30)
[2018-02-08] MEDS ORDERED: ALBUTEROL HFA 8 GM INHALER INH (06:30)
[2018-02-08] MEDS: VANCOMYCIN 1 GM (PMX) 250 ML IVPB (06:44)
[2018-02-08] MEDS: FLUTICASONE/VILANTEROL 100-25 INH (09:00)
[2018-02-08] MEDS: BENAZEPRIL 20 MG TAB PO (09:04)
[2018-02-08] MEDS: PANTOPRAZOLE (EC) 40 MG TAB PO (09:04)
[2018-02-08] MEDS: ATENOLOL 50 MG TAB PO (09:05)
[2018-02-08] MEDS: ISOSORBIDE MONONITRATE(SR)30 MG TAB PO (09:05)
[2018-02-08] MEDS: FUROSEMIDE 20 MG TAB PO (09:05)
[2018-02-08] MEDS: VANCOMYCIN 1 GM in 250 ML IVPB (09:08)
[2018-02-08] MEDS ORDERED: LORAZEPAM 0.5 MG TAB PO (09:30)
[2018-02-08] MEDS ORDERED: GLUCAGON 1 MG INJ IM (10:00)
[2018-02-08] MEDS ORDERED: GLUCOSE GEL 15 GRAM TUBE PO ×2 (10:00)
[2018-02-08] MEDS ORDERED: DEXTROSE 50% 50 ML SYRINGE IV ×2 (10:00)
[2018-02-08] MEDS ORDERED: GLUCOSE GEL 15 GRAM TUBE BUCCAL (10:00)
[2018-02-08 10:57] LABS: CREATINE KINASE 28 IU/L (23-200)
[2018-02-08 11:06] LABS: CK-MB 0.55 ng/ml (0.0-2.4); TROPONIN-I < 0.012 ng/ml (0.000-0.120)
[2018-02-08] MEDS: INSULIN ASPART [NOVOLOG] 3 ML PEN SC ×2 (12:00)
[2018-02-08] MEDS: FUROSEMIDE 40 MG INJ IV (12:15)
[2018-02-08] MEDS ORDERED: HEPARIN 5,000 UNIT/0.5 ML VIAL SC (14:00)
[2018-02-08] MEDS ORDERED: metFORMIN 500 MG TAB PO (18:00)
[2018-02-08] MEDS ORDERED: FERROUS SULFATE (EC) 325 MG TAB PO (21:00)
[2018-02-08] MEDS ORDERED: AZTREONAM 1 GM/NS (PMX) 50 ML IVPB (21:00)
[2018-02-08] MEDS ORDERED: VANCOMYCIN 1.5 GM in SOD CHLORIDE 0.9% 250 ML IVPB (22:00)
[2018-02-09] MEDS ORDERED: ASPIRIN (EC) 81 MG TAB PO (09:00)
[2018-02-11 13:53] LABS: PROCALCITONIN <0.10 ng/mL (<0.10)
== END 2018-02-08 13:00 | disposition left against medical advice (07) ==
LOC: E/R 03:52 → 6WM 05:51
DX: R07.89 Other chest pain (principal); I11.0 Hypertensive heart disease with heart failure; I50.33 Acute on chronic diastolic (congestive) heart failure; I25.10 Atherosclerotic heart disease of native coronary artery without angina pectoris; E11.9 Type 2 diabetes mellitus without complications; Z79.84 Long term (current) use of oral hypoglycemic drugs; F41.9 Anxiety disorder, unspecified; G47.33 Obstructive sleep apnea (adult) (pediatric); Z76.5 Malingerer [conscious simulation]; E66.01 Morbid (severe) obesity due to excess calories; Z68.41 Body mass index [BMI] 40.0-44.9, adult; I25.2 Old myocardial infarction; Z79.82 Long term (current) use of aspirin; Z88.0 Allergy status to penicillin; Z91.14 Patient's other noncompliance with medication regimen
CPT/HCPCS: 36415; 71045; 80053; 82550; 82553; 82962; 83880; 84145; 84484; 84703; 85025; 87040; 93005; 99285-25; G0378

== ENCOUNTER 2018-02-11 23:59 | Emergency (ER) | payer OTHER ==
[2018-02-12 03:30] LABS: URINE BLOOD (Dip) POC 2+ (NEGATIVE); URINE GLUCOSE (Dip) POC Negative (NEGATIVE); URINE KETONES (Dip) POC Negative (NEGATIVE); URINE LEUKOCYTE EST (Dip) POC Trace (NEGATIVE); URINE NITRITE (Dip) POC Negative (NEGATIVE); URINE TOTAL PROTEIN POC Negative (NEGATIVE)
[2018-02-12 03:30] LABS: URINE PH (Dip) POC 5.5 (5.0-8.5)
[2018-02-12 03:32] LABS: ADD MAN DIFF? NO
[2018-02-12 03:50] LABS: ALANINE AMINOTRANSFERASE 23 IU/L (13-69); ALBUMIN 3.7 g/dl (3.3-4.9); ALBUMIN/GLOBULIN RATIO 1.08; ALKALINE PHOSPHATASE 81 IU/L (42-121); ANION GAP 12 (5-13); ASPARTATE AMINO TRANSFERASE 20 IU/L (15-46); BILIRUBIN,INDIRECT 0.3 mg/dl (0-1.1); BILIRUBIN,TOTAL 0.3 mg/dl (0.2-1.3); BLOOD UREA NITROGEN 17 mg/dl (7-20); CALCIUM 8.4 mg/dl (8.4-10.2); CARBON DIOXIDE 30 mmol/L (21-31); CHLORIDE 102 mmol/L (97-110); CREATININE 0.79 mg/dl (0.44-1.00); Estimated GFR > 60 mL/min (>60); GLUCOSE 102 mg/dl (70-220); POTASSIUM 3.6 mmol/L (3.5-5.1); SODIUM 144 mmol/L (135-144); TOTAL PROTEIN 7.1 g/dl (6.1-8.1)
[2018-02-12 03:58] LABS: WHITE BLOOD COUNT 8.1 10^3/ul (4.8-10.8)
[2018-02-12 03:58] LABS: ABNORMAL IP MESSAGE 1; BASOPHIL # 0.1 10^3/ul (0.0-0.1); BASOPHILS % 0.6 % (0.0-2.0); EOSINOPHILS # 0.3 10^3/ul (0.0-0.5); EOSINOPHILS % 3.7 % (0.0-7.0); HEMATOCRIT 40.9 % (37.0-47.0); HEMOGLOBIN 12.3 g/dl (12.0-16.0); LYMPHOCYTES # 1.6 10^3/ul (0.8-2.9); LYMPHOCYTES % 19.9 % (15.0-51.0); MEAN CORPUSCULAR HEMOGLOBIN 25.9 pg (29.0-33.0); MEAN CORPUSCULAR HGB CONC 30.1 g/dl (32.0-37.0); MEAN CORPUSCULAR VOLUME 86.3 fl (82.0-101.0); MEAN PLATELET VOLUME 10.7 fl (7.4-10.4); MONOCYTE # 0.5 10^3/ul (0.3-0.9); MONOCYTES % 6.1 % (0.0-11.0); NEUTROPHIL # 5.6 10^3/ul (1.6-7.5); NEUTROPHILS % 69.6 % (39.0-77.0); PLATELET COUNT 300 10^3/UL (140-415); RED BLOOD COUNT 4.74 10^6/ul (4.20-5.40); RED CELL DISTRIBUTION WIDTH 23.7 % (11.5-14.5)
[2018-02-12 03:59] LABS: INR 1.06; PARTIAL THROMBOPLASTIN TIME 29.4 Sec (23.0-35.0); PROTIME 13.9 Sec (11.9-14.9); PT RATIO 1.1
[2018-02-12 04:02] LABS: B-TYPE NATRIURETIC PEPTIDE 2990 PG/ML (0-125); TROPONIN-I 0.031 ng/ml (0.000-0.120)
[2018-02-12 04:05] LABS: POSITIVE DIFF @See below
[2018-02-12] MEDS: LORAZEPAM 1 MG TAB PO (04:14)
[2018-02-12] MEDS: IOHEXOL 100 ML (04:16)
[2018-02-12] MEDS: SOD CHLORIDE 0.9% 100 ML (04:16)
[2018-02-12] MEDS: FUROSEMIDE 40 MG INJ IV (05:00)
[2018-02-12] MEDS ORDERED: LEVOFLOXACIN 750MG/D5W (PMX) 150 ML IVPB (05:30)
[2018-02-12] MEDS ORDERED: ALBUTEROL HFA 8 GM INHALER INH (05:45)
[2018-02-12] MEDS ORDERED: ALPRAZOLAM 1 MG TAB PO (06:00)
[2018-02-12] MEDS ORDERED: ONDANSETRON 4 MG INJ IV (06:00)
[2018-02-12] MEDS ORDERED: NACL 0.9% 3 ML SYG IV (06:00)
[2018-02-12] MEDS ORDERED: NITROGLYCERIN (SL) 0.4 MG TAB SL (06:00)
[2018-02-12] MEDS: FUROSEMIDE 20 MG TAB PO (06:00)
[2018-02-12] MEDS ORDERED: ALBUTEROL/IPRATROPIUM (NEB) 3 ML AMP HHN (06:00)
[2018-02-12] MEDS ORDERED: ACETAMINOPHEN 325 MG TAB PO (06:00)
[2018-02-12] MEDS ORDERED: PROVENTIL HFA 6.7GM INHALER INH (06:00)
[2018-02-12] MEDS ORDERED: LORAZEPAM 1 MG TAB PO (06:00)
[2018-02-12] MEDS: ALBUTEROL 0.083% (NEB) 2.5 MG/3 ML AMP NEB ×3 (06:07→12:49)
[2018-02-12] MEDS: morphine 4 MG/ML VIAL IV (06:54)
[2018-02-12 08:07] LABS: CREATINE KINASE 42 IU/L (23-200)
[2018-02-12 08:17] LABS: CK INDEX 1.8; CK-MB 0.74 ng/ml (0.0-2.4); TROPONIN-I 0.021 ng/ml (0.000-0.120)
[2018-02-12] MEDS ORDERED: FERROUS SULFATE (EC) 325 MG TAB PO (09:00)
[2018-02-12] MEDS: FLUTICASONE/VILANTEROL 100-25 INH (11:34)
[2018-02-12] MEDS: ASPIRIN (EC) 81 MG TAB PO (11:34)
[2018-02-12] MEDS: FERROUS SULFATE (EC) 325 MG TAB PO (11:35)
[2018-02-12] MEDS: PANTOPRAZOLE (EC) 40 MG TAB PO (11:35)
[2018-02-12] MEDS: ISOSORBIDE MONONITRATE(SR)30 MG TAB PO (11:36)
[2018-02-12] MEDS: metFORMIN 500 MG TAB PO (11:36)
[2018-02-12] MEDS: ATENOLOL 50 MG TAB PO (11:36)
[2018-02-12] MEDS: ENOXAPARIN 40 MG/0.4 ML SYG SC (11:37)
[2018-02-12 12:14] LABS: CREATINE KINASE 36 IU/L (23-200)
[2018-02-12 12:26] LABS: CK INDEX 2.1; CK-MB 0.76 ng/ml (0.0-2.4)
[2018-02-12] MEDS ORDERED: NICOTINE (21 MG/24 HR) PATCH TRANSDERM (12:30)
== END 2018-02-12 15:04 | disposition left against medical advice (07) ==
LOC: E/R 23:59
DX: I11.0 Hypertensive heart disease with heart failure (principal); I50.9 Heart failure, unspecified; R91.1 Solitary pulmonary nodule; E11.9 Type 2 diabetes mellitus without complications; E66.9 Obesity, unspecified; R10.2 Pelvic and perineal pain; Z68.43 Body mass index [BMI] 50.0-59.9, adult; Z79.82 Long term (current) use of aspirin; Z79.84 Long term (current) use of oral hypoglycemic drugs
CPT/HCPCS: 36415; 71045; 71275; 80053; 81003; 81025; 82550; 82553; 82962; 83880; 84484; 84702; 85025; 85610; 85730; 87086; 93005; 93970; 94640; 94664; 96374; 96375; 99285-25

== ENCOUNTER 2018-03-13 04:40 | Inpatient (IN) | payer OTHER ==
[2018-03-13] MEDS ORDERED: NITROGLYCERIN (SL) 0.4 MG TAB SL (05:30)
[2018-03-13] MEDS ORDERED: DEXTROSE 50% 50 ML SYRINGE IV ×2 (05:30)
[2018-03-13] MEDS ORDERED: GLUCOSE GEL 15 GRAM TUBE PO ×2 (05:30)
[2018-03-13] MEDS ORDERED: NACL 0.9% 3 ML SYG IV (05:30)
[2018-03-13] MEDS ORDERED: GLUCOSE GEL 15 GRAM TUBE BUCCAL (05:30)
[2018-03-13] MEDS ORDERED: GLUCAGON 1 MG INJ IM (05:30)
[2018-03-13] MEDS: ALBUTEROL 0.083% (NEB) 2.5 MG/3 ML AMP NEB ×5 (05:33→20:10)
[2018-03-13] MEDS ORDERED: HEPARIN 5,000 UNIT/0.5 ML VIAL ×3 (05:53→20:52)
[2018-03-13] MEDS: ALPRAZOLAM 1 MG TAB PO ×2 (06:17→18:54)
[2018-03-13] MEDS: FUROSEMIDE 20 MG TAB PO (06:17)
[2018-03-13] MEDS: traMADol 50 MG TAB PO ×4 (06:17→23:06)
[2018-03-13] MEDS: PANTOPRAZOLE (EC) 40 MG TAB PO (06:17)
[2018-03-13] MEDS: HEPARIN 5,000 UNIT/1 ML VIAL SC ×3 (06:28→21:14)
[2018-03-13 06:46] LABS: ADD MAN DIFF? NO
[2018-03-13 06:56] LABS: WHITE BLOOD COUNT 8.8 10^3/ul (4.8-10.8)
[2018-03-13 06:56] LABS: BASOPHIL # 0.1 10^3/ul (0.0-0.1); BASOPHILS % 0.7 % (0.0-2.0); EOSINOPHILS # 0.4 10^3/ul (0.0-0.5); EOSINOPHILS % 4.4 % (0.0-7.0); HEMATOCRIT 41.5 % (37.0-47.0); HEMOGLOBIN 12.5 g/dl (12.0-16.0); LYMPHOCYTES # 2.2 10^3/ul (0.8-2.9); LYMPHOCYTES % 24.8 % (15.0-51.0); MEAN CORPUSCULAR HEMOGLOBIN 26.6 pg (29.0-33.0); MEAN CORPUSCULAR HGB CONC 30.1 g/dl (32.0-37.0); MEAN CORPUSCULAR VOLUME 88.3 fl (82.0-101.0); MEAN PLATELET VOLUME 10.9 fl (7.4-10.4); MONOCYTE # 0.4 10^3/ul (0.3-0.9); NEUTROPHIL # 5.7 10^3/ul (1.6-7.5); NEUTROPHILS % 64.8 % (39.0-77.0); PLATELET COUNT 215 10^3/UL (140-415)
[2018-03-13 07:11] LABS: CREATINE KINASE 22 IU/L (23-200)
[2018-03-13 07:23] LABS: CK INDEX 1.9; CK-MB 0.42 ng/ml (0.0-2.4); TROPONIN-I < 0.012 ng/ml (0.000-0.120)
[2018-03-13 07:41] LABS: CHOLESTEROL 96 mg/dl (100-200)
[2018-03-13 07:41] LABS: ALANINE AMINOTRANSFERASE 20 IU/L (13-69); ALBUMIN 3.2 g/dl (3.3-4.9); ALBUMIN/GLOBULIN RATIO 0.84; ALKALINE PHOSPHATASE 81 IU/L (42-121); ANION GAP 8 (5-13); ASPARTATE AMINO TRANSFERASE 23 IU/L (15-46); BILIRUBIN,INDIRECT 0.3 mg/dl (0-1.1); BILIRUBIN,TOTAL 0.3 mg/dl (0.2-1.3); BLOOD UREA NITROGEN 20 mg/dl (7-20); CALCIUM 8.6 mg/dl (8.4-10.2); CARBON DIOXIDE 25 mmol/L (21-31); CHLORIDE 108 mmol/L (97-110); CHOL/HDL RATIO 4.1 RATIO; CREATININE 0.73 mg/dl (0.44-1.00); Estimated GFR > 60 mL/min (>60); GLUCOSE 120 mg/dl (70-220); HDL CHOLESTEROL 23 mg/dl (34-88); LDL CHOLESTEROL,CALCULATED 54 mg/dl; POTASSIUM 3.9 mmol/L (3.5-5.1); SODIUM 141 mmol/L (135-144); TRIGLYCERIDES 94 mg/dl (0-149)
[2018-03-13] MEDS: INSULIN ASPART [NOVOLOG] 3 ML PEN SC ×4 (08:00→21:00)
[2018-03-13 08:17] LABS: MAGNESIUM 2.1 mg/dl (1.7-2.5)
[2018-03-13 08:18] LABS: HEMOGLOBIN A1C 5.9 % (0-5.9)
[2018-03-13] MEDS: FERROUS SULFATE (EC) 325 MG TAB PO ×2 (09:59→21:02)
[2018-03-13] MEDS: ASPIRIN (EC) 81 MG TAB PO (09:59)
[2018-03-13] MEDS: NICOTINE (21 MG/24 HR) PATCH TRANSDERM (09:59)
[2018-03-13] MEDS: FLUTICASONE/VILANTEROL 100-25 INH (09:59)
[2018-03-13] MEDS: ASCORBIC ACID 500 MG TAB PO (09:59)
[2018-03-13] MEDS: ISOSORBIDE MONONITRATE(SR)30 MG TAB PO (10:00)
[2018-03-13] MEDS: ATENOLOL 50 MG TAB PO (10:00)
[2018-03-13] MEDS: FUROSEMIDE 40 MG INJ IV ×2 (10:15→17:10)
[2018-03-13 12:50] LABS: CREATINE KINASE 48 IU/L (23-200)
[2018-03-13 13:06] LABS: CK INDEX 0.8; CK-MB 0.38 ng/ml (0.0-2.4); TROPONIN-I < 0.012 ng/ml (0.000-0.120)
[2018-03-13] MEDS: ACETAMINOPHEN 325 MG TAB PO ×2 (15:43→21:06)
[2018-03-13] MEDS: DOCUSATE SODIUM 100 MG CAP PO (15:47)
[2018-03-13] MEDS: BISACODYL (EC) 5 MG TAB PO (15:47)
[2018-03-13] MEDS: DIPHENHYDRAMINE 50 MG CAP PO (21:50)
[2018-03-13] MEDS: BARIUM SULF 2% 450 ML BTL (BERRY SMOOTHIE) PO (23:05)
[2018-03-14] MEDS: ALBUTEROL 0.083% (NEB) 2.5 MG/3 ML AMP NEB ×5 (01:09→17:00)
[2018-03-14] MEDS: ONDANSETRON 4 MG INJ IV (01:27)
[2018-03-14] MEDS: ACCU-CHEK XX (02:00)
[2018-03-14] MEDS: IOHEXOL 300MG/ML 150 ML BTL (02:47)
[2018-03-14] MEDS: SOD CHLORIDE 0.9% 100 ML (02:47)
[2018-03-14] MEDS ORDERED: HEPARIN 5,000 UNIT/0.5 ML VIAL (04:56)
[2018-03-14] MEDS: PANTOPRAZOLE (EC) 40 MG TAB PO (05:01)
[2018-03-14] MEDS: FUROSEMIDE 40 MG INJ IV (05:01)
[2018-03-14] MEDS: ALPRAZOLAM 1 MG TAB PO (05:01)
[2018-03-14] MEDS: traMADol 50 MG TAB PO (05:01)
[2018-03-14] MEDS: HEPARIN 5,000 UNIT/1 ML VIAL SC ×2 (05:05→14:00)
[2018-03-14] MEDS: INSULIN ASPART [NOVOLOG] 3 ML PEN SC ×3 (08:00→18:00)
[2018-03-14] MEDS: FLUTICASONE/VILANTEROL 100-25 INH (08:59)
[2018-03-14] MEDS: ASCORBIC ACID 500 MG TAB PO (09:00)
[2018-03-14] MEDS: ASPIRIN (EC) 81 MG TAB PO (09:00)
[2018-03-14] MEDS: FERROUS SULFATE (EC) 325 MG TAB PO (09:00)
[2018-03-14] MEDS: ISOSORBIDE MONONITRATE(SR)30 MG TAB PO (09:00)
[2018-03-14] MEDS: ATENOLOL 50 MG TAB PO (09:00)
[2018-03-14] MEDS: NICOTINE (21 MG/24 HR) PATCH TRANSDERM (09:01)
[2018-03-14] MEDS ORDERED: FUROSEMIDE 40 MG INJ IV (18:00)
[2018-03-14] MEDS: DOCUSATE SODIUM 100 MG CAP PO (18:16)
[2018-03-14] MEDS: BISACODYL (EC) 5 MG TAB PO (18:16)
[2018-03-14] MEDS: FUROSEMIDE 20 MG TAB PO (18:16)
[2018-03-14] MEDS: BISACODYL 10 MG SUPP PR (18:33)
[2018-03-14] MEDS: NA PHOSPHATE/BIPHOS 133 ML ENEMA PR (18:33)
== END 2018-03-14 19:46 | disposition home or self-care (01) | DRG 292 ==
LOC: 6WM 04:40
DX: I11.0 Hypertensive heart disease with heart failure (principal); Z68.43 Body mass index [BMI] 50.0-59.9, adult; E66.01 Morbid (severe) obesity due to excess calories; I50.33 Acute on chronic diastolic (congestive) heart failure; J44.9 Chronic obstructive pulmonary disease, unspecified; E11.9 Type 2 diabetes mellitus without complications; G47.33 Obstructive sleep apnea (adult) (pediatric); F41.9 Anxiety disorder, unspecified; F11.90 Opioid use, unspecified, uncomplicated; E78.5 Hyperlipidemia, unspecified; N83.202 Unspecified ovarian cyst, left side; F17.210 Nicotine dependence, cigarettes, uncomplicated; Z76.5 Malingerer [conscious simulation]; Z79.4 Long term (current) use of insulin; Z91.19 Patient's noncompliance with other medical treatment and regimen; Z91.14 Patient's other noncompliance with medication regimen; Z90.49 Acquired absence of other specified parts of digestive tract
CPT/HCPCS: 71045; 74178; 76856; 80053; 80061; 82550; 82553; 82962; 83036; 83735; 84443; 84484; 84703; 85025; 87081; 93970; 94640; 94660; 94664

== ENCOUNTER 2018-06-11 17:38 | Inpatient (IN) | payer OTHER ==
[2018-06-11] MEDS: FUROSEMIDE 40 MG INJ IV (19:22)
[2018-06-11] MEDS: ASPIRIN 81 MG TAB PO (19:22)
[2018-06-11] MEDS: KETOROLAC 15 MG INJ IV (19:22)
[2018-06-11 19:29] LABS: ADD MAN DIFF? NO
[2018-06-11 19:35] LABS: WHITE BLOOD COUNT 9.3 10^3/ul (4.8-10.8)
[2018-06-11 19:35] LABS: BASOPHIL # 0.1 10^3/ul (0.0-0.1); BASOPHILS % 0.6 % (0.0-2.0); EOSINOPHILS # 0.2 10^3/ul (0.0-0.5); EOSINOPHILS % 2.5 % (0.0-7.0); HEMATOCRIT 42.8 % (37.0-47.0); HEMOGLOBIN 13.2 g/dl (12.0-16.0); LYMPHOCYTES # 1.6 10^3/ul (0.8-2.9); LYMPHOCYTES % 17.7 % (15.0-51.0); MEAN CORPUSCULAR HEMOGLOBIN 28.1 pg (29.0-33.0); MEAN CORPUSCULAR HGB CONC 30.8 g/dl (32.0-37.0); MEAN CORPUSCULAR VOLUME 91.1 fl (82.0-101.0); MEAN PLATELET VOLUME 10.4 fl (7.4-10.4); MONOCYTE # 0.7 10^3/ul (0.3-0.9); MONOCYTES % 7.2 % (0.0-11.0); NEUTROPHIL # 6.6 10^3/ul (1.6-7.5); NEUTROPHILS % 71.6 % (39.0-77.0); PLATELET COUNT 252 10^3/UL (140-415); RED CELL DISTRIBUTION WIDTH 16.8 % (11.5-14.5)
[2018-06-11 19:47] LABS: ALANINE AMINOTRANSFERASE 30 IU/L (13-69); ALBUMIN 3.7 g/dl (3.3-4.9); ALBUMIN/GLOBULIN RATIO 0.97; ALKALINE PHOSPHATASE 96 IU/L (42-121); ANION GAP 9 (5-13); ASPARTATE AMINO TRANSFERASE 32 IU/L (15-46); BILIRUBIN,INDIRECT 0.7 mg/dl (0-1.1); BILIRUBIN,TOTAL 0.7 mg/dl (0.2-1.3); BLOOD UREA NITROGEN 18 mg/dl (7-20); CALCIUM 8.8 mg/dl (8.4-10.2); CARBON DIOXIDE 28 mmol/L (21-31); CHLORIDE 106 mmol/L (97-110); CREATININE 0.85 mg/dl (0.44-1.00); Estimated GFR > 60 mL/min (>60); GLUCOSE 97 mg/dl (70-220); LIPASE 52 U/L (23-300); POTASSIUM 4.1 mmol/L (3.5-5.1); SODIUM 143 mmol/L (135-144); TOTAL PROTEIN 7.5 g/dl (6.1-8.1)
[2018-06-11] MEDS: LORAZEPAM 0.5 MG TAB PO (19:59)
[2018-06-11 20:12] LABS: ADD UMIC YES; UR ASCORBIC ACID NEGATIVE (NEGATIVE); UR BILIRUBIN (Dip) NEGATIVE (NEGATIVE); UR BLOOD (Dip) 3+ mg/dL (NEGATIVE); UR CLARITY SLIGHTLY CLOUDY (CLEAR); UR COLOR YELLOW (YELLOW); UR GLUCOSE (Dip) NEGATIVE (NEGATIVE); UR KETONES (Dip) NEGATIVE (NEGATIVE); UR LEUKOCYTE ESTERASE (Dip) NEGATIVE Leu/ul (NEGATIVE); UR NITRITE (Dip) NEGATIVE (NEGATIVE); UR RBC 2 /HPF (0-5); UR SPECIFIC GRAVITY (Dip) 1.013 (1.003-1.030); UR SQUAMOUS EPITHELIAL CELL FEW /HPF (FEW); UR TOTAL PROTEIN (Dip) 1+ mg/dl (NEGATIVE); UR UROBILINOGEN (Dip) 2+ mg/dL (NEGATIVE); UR WBC 4 /HPF (0-5)
[2018-06-11 20:16] LABS: TROPONIN-I < 0.012 ng/ml (0.000-0.120)
[2018-06-11 20:30] LABS: CREATINE KINASE 35 IU/L (23-200)
[2018-06-11] MEDS ORDERED: NITROGLYCERIN (SL) 0.4 MG TAB SL (20:30)
[2018-06-11] MEDS ORDERED: ONDANSETRON 4 MG TAB PO (20:30)
[2018-06-11] MEDS ORDERED: BISACODYL (EC) 5 MG TAB PO (20:30)
[2018-06-11] MEDS ORDERED: ALBUTEROL 0.083% (NEB) 2.5 MG/3 ML AMP NEB (20:30)
[2018-06-11] MEDS ORDERED: DOCUSATE SODIUM 100 MG CAP PO (20:30)
[2018-06-11] MEDS ORDERED: NACL 0.9% 3 ML SYG IV (20:30)
[2018-06-11 20:39] LABS: CK-MB 1.13 ng/ml (0.0-2.4)
[2018-06-11] MEDS: ALBUTEROL 0.083% (NEB) 2.5 MG/3 ML AMP NEB (21:00)
[2018-06-11] MEDS ORDERED: FERROUS SULFATE (EC) 325 MG TAB PO (21:00)
[2018-06-11] MEDS: FERROUS SULFATE (EC) 325 MG TAB PO (22:43)
[2018-06-11] MEDS: morphine 2 MG INJ IV (22:43)
[2018-06-11] MEDS: ENOXAPARIN 40 MG/0.4 ML SYG SC (22:51)
[2018-06-11] MEDS: FUROSEMIDE 20 MG TAB PO (22:51)
[2018-06-12] MEDS: ALBUTEROL 0.083% (NEB) 2.5 MG/3 ML AMP NEB ×6 (00:07→19:44)
[2018-06-12] MEDS: hydrALAzine 20 MG INJ IV (00:12)
[2018-06-12] MEDS: morphine 4 MG/ML VIAL IV ×3 (00:13→21:36)
[2018-06-12] MEDS ORDERED: ALBUTEROL 0.083% (NEB) 2.5 MG/3 ML AMP NEB (01:00)
[2018-06-12 02:19] LABS: CREATINE KINASE 37 IU/L (23-200)
[2018-06-12 02:28] LABS: CK INDEX 2.8; CK-MB 1.04 ng/ml (0.0-2.4)
[2018-06-12] MEDS: LORAZEPAM 2 MG INJ IV ×3 (02:30→22:36)
[2018-06-12 02:32] LABS: TROPONIN-I < 0.012 ng/ml (0.000-0.120)
[2018-06-12 05:54] LABS: ADD MAN DIFF? NO
[2018-06-12 06:04] LABS: BASOPHIL # 0.1 10^3/ul (0.0-0.1); BASOPHILS % 0.7 % (0.0-2.0); EOSINOPHILS # 0.3 10^3/ul (0.0-0.5); EOSINOPHILS % 3.1 % (0.0-7.0); HEMATOCRIT 43.6 % (37.0-47.0); HEMOGLOBIN 13.1 g/dl (12.0-16.0); LYMPHOCYTES # 2.1 10^3/ul (0.8-2.9); MEAN CORPUSCULAR HEMOGLOBIN 28.1 pg (29.0-33.0); MEAN CORPUSCULAR VOLUME 93.4 fl (82.0-101.0); MEAN PLATELET VOLUME 10.8 fl (7.4-10.4); MONOCYTE # 0.7 10^3/ul (0.3-0.9); MONOCYTES % 7.2 % (0.0-11.0); NEUTROPHIL # 6.4 10^3/ul (1.6-7.5); NEUTROPHILS % 66.8 % (39.0-77.0); PLATELET COUNT 223 10^3/UL (140-415); RED BLOOD COUNT 4.67 10^6/ul (4.20-5.40); RED CELL DISTRIBUTION WIDTH 17.2 % (11.5-14.5)
[2018-06-12 06:04] LABS: WHITE BLOOD COUNT 9.5 10^3/ul (4.8-10.8)
[2018-06-12 06:22] LABS: ALANINE AMINOTRANSFERASE 30 IU/L (13-69); ALBUMIN 3.4 g/dl (3.3-4.9); ALBUMIN/GLOBULIN RATIO 0.89; ALKALINE PHOSPHATASE 91 IU/L (42-121); ANION GAP 12 (5-13); ASPARTATE AMINO TRANSFERASE 28 IU/L (15-46); BILIRUBIN,INDIRECT 0.4 mg/dl (0-1.1); BILIRUBIN,TOTAL 0.4 mg/dl (0.2-1.3); BLOOD UREA NITROGEN 22 mg/dl (7-20); CALCIUM 8.8 mg/dl (8.4-10.2); CARBON DIOXIDE 25 mmol/L (21-31); CHLORIDE 105 mmol/L (97-110); CREATININE 0.86 mg/dl (0.44-1.00); Estimated GFR > 60 mL/min (>60); GLUCOSE 124 mg/dl (70-220); MAGNESIUM 1.9 mg/dl (1.7-2.5); POTASSIUM 3.9 mmol/L (3.5-5.1); SODIUM 142 mmol/L (135-144); TOTAL PROTEIN 7.2 g/dl (6.1-8.1)
[2018-06-12 06:41] LABS: HEMOGLOBIN A1C 6.2 % (0-5.9)
[2018-06-12] MEDS: PANTOPRAZOLE (EC) 40 MG TAB PO (07:00)
[2018-06-12 07:01] LABS: CREATINE KINASE 34 IU/L (23-200)
[2018-06-12 07:13] LABS: CK INDEX 3.4; CK-MB 1.14 ng/ml (0.0-2.4); TROPONIN-I < 0.012 ng/ml (0.000-0.120)
[2018-06-12] MEDS: FERROUS SULFATE (EC) 325 MG TAB PO ×2 (08:40→21:37)
[2018-06-12] MEDS: ISOSORBIDE MONONITRATE(SR)30 MG TAB PO (08:40)
[2018-06-12] MEDS: ASCORBIC ACID 500 MG TAB PO (08:40)
[2018-06-12] MEDS: ASPIRIN (EC) 81 MG TAB PO (08:40)
[2018-06-12] MEDS: ATENOLOL 50 MG TAB PO (08:40)
[2018-06-12] MEDS: ENOXAPARIN 40 MG/0.4 ML SYG SC (08:44)
[2018-06-12] MEDS: FUROSEMIDE 40 MG INJ IV ×2 (08:45→17:36)
[2018-06-12] MEDS: FLUTICASONE/VILANTEROL 100-25 INH ×2 (09:00→16:16)
[2018-06-12 15:40] LABS: AMPHETAMINE/METHAMPHETAMINE Negative (NEGATIVE); BARBITURATES Negative (NEGATIVE); BENZODIAZEPINES Positive (NEGATIVE); CANNABINOIDS Positive (NEGATIVE); COCAINE Negative (NEGATIVE)
[2018-06-12 15:41] LABS: OPIATES Positive (NEGATIVE)
[2018-06-12] MEDS: NICOTINE (14 MG/24 HR) PATCH TRANSDERM (16:15)
[2018-06-12] MEDS: metFORMIN 500 MG TAB PO (17:36)
[2018-06-12] MEDS: LIDOCAINE/MYLANTA 40 ML BTL PO (23:57)
[2018-06-13] MEDS: ALBUTEROL 0.083% (NEB) 2.5 MG/3 ML AMP NEB ×6 (00:28→21:37)
[2018-06-13] MEDS: NICOTINE (14 MG/24 HR) PATCH TRANSDERM ×2 (00:45→09:45)
[2018-06-13] MEDS: traMADol 50 MG TAB PO (00:45)
[2018-06-13] MEDS: DIPHENHYDRAMINE 50 MG CAP PO (01:28)
[2018-06-13] MEDS: FUROSEMIDE 40 MG INJ IV ×2 (05:45→17:47)
[2018-06-13] MEDS: LORAZEPAM 2 MG INJ IV ×3 (05:46→20:28)
[2018-06-13] MEDS: PANTOPRAZOLE (EC) 40 MG TAB PO (06:05)
[2018-06-13 06:15] LABS: ADD MAN DIFF? NO
[2018-06-13 06:21] LABS: BASOPHIL # 0.1 10^3/ul (0.0-0.1); BASOPHILS % 0.7 % (0.0-2.0); EOSINOPHILS # 0.3 10^3/ul (0.0-0.5); HEMOGLOBIN 12.4 g/dl (12.0-16.0); LYMPHOCYTES # 2.7 10^3/ul (0.8-2.9); LYMPHOCYTES % 26.1 % (15.0-51.0); MEAN CORPUSCULAR HEMOGLOBIN 27.9 pg (29.0-33.0); MEAN CORPUSCULAR HGB CONC 30.2 g/dl (32.0-37.0); MEAN CORPUSCULAR VOLUME 92.3 fl (82.0-101.0); MEAN PLATELET VOLUME 10.7 fl (7.4-10.4); MONOCYTE # 0.8 10^3/ul (0.3-0.9); MONOCYTES % 8.1 % (0.0-11.0); NEUTROPHIL # 6.3 10^3/ul (1.6-7.5); NEUTROPHILS % 61.7 % (39.0-77.0); PLATELET COUNT 271 10^3/UL (140-415); RED BLOOD COUNT 4.44 10^6/ul (4.20-5.40); RED CELL DISTRIBUTION WIDTH 17.1 % (11.5-14.5)
[2018-06-13 06:21] LABS: WHITE BLOOD COUNT 10.2 10^3/ul (4.8-10.8)
[2018-06-13 07:03] LABS: ANION GAP 10 (5-13); BLOOD UREA NITROGEN 23 mg/dl (7-20); CALCIUM 8.8 mg/dl (8.4-10.2); CARBON DIOXIDE 25 mmol/L (21-31); CHLORIDE 107 mmol/L (97-110); CREATININE 0.77 mg/dl (0.44-1.00); Estimated GFR > 60 mL/min (>60); GLUCOSE 121 mg/dl (70-220); POTASSIUM 3.9 mmol/L (3.5-5.1); SODIUM 142 mmol/L (135-144)
[2018-06-13 07:19] LABS: MAGNESIUM 2.1 mg/dl (1.7-2.5)
[2018-06-13 07:19] LABS: PHOSPHORUS 4.8 mg/dl (2.5-4.9)
[2018-06-13] MEDS: ISOSORBIDE MONONITRATE(SR)30 MG TAB PO (09:44)
[2018-06-13] MEDS: FERROUS SULFATE (EC) 325 MG TAB PO ×2 (09:44→20:28)
[2018-06-13] MEDS: ASPIRIN (EC) 81 MG TAB PO (09:44)
[2018-06-13] MEDS: metFORMIN 500 MG TAB PO ×2 (09:44→17:47)
[2018-06-13] MEDS: ASCORBIC ACID 500 MG TAB PO (09:44)
[2018-06-13] MEDS: ATENOLOL 50 MG TAB PO (09:45)
[2018-06-13] MEDS: ENOXAPARIN 40 MG/0.4 ML SYG SC (09:53)
[2018-06-13] MEDS: HYDROmorphONE 0.5 MG/0.5 ML SYG IV (12:18)
[2018-06-13] MEDS: SOD CHLORIDE 0.9% 100 ML (15:55)
[2018-06-13] MEDS: IOHEXOL 300MG/ML 150 ML BTL (15:55)
[2018-06-13] MEDS: ACETAMINOPHEN 325 MG TAB PO (20:34)
[2018-06-13] MEDS: DIPHENHYDRAMINE 25 MG CAP PO (20:34)
[2018-06-14] MEDS: ALBUTEROL 0.083% (NEB) 2.5 MG/3 ML AMP NEB ×5 (01:35→17:02)
[2018-06-14] MEDS: ACETAMINOPHEN 325 MG TAB PO ×2 (05:23→16:55)
[2018-06-14] MEDS: FUROSEMIDE 40 MG INJ IV ×3 (05:23→18:00)
[2018-06-14] MEDS: ALPRAZOLAM 1 MG TAB PO (05:23)
[2018-06-14] MEDS: metFORMIN 500 MG TAB PO ×2 (08:44→17:55)
[2018-06-14] MEDS: ENOXAPARIN 40 MG/0.4 ML SYG SC (08:44)
[2018-06-14] MEDS: ASCORBIC ACID 500 MG TAB PO (08:44)
[2018-06-14] MEDS: FERROUS SULFATE (EC) 325 MG TAB PO (08:46)
[2018-06-14] MEDS: ASPIRIN (EC) 81 MG TAB PO (08:46)
[2018-06-14] MEDS: PANTOPRAZOLE (EC) 40 MG TAB PO (08:46)
[2018-06-14] MEDS: ATENOLOL 50 MG TAB PO (08:46)
[2018-06-14] MEDS ORDERED: FLUTICASONE/VILANTEROL 100-25 INH (09:24)
[2018-06-14] MEDS: ISOSORBIDE MONONITRATE(SR)30 MG TAB PO (12:19)
[2018-06-14] MEDS: NICOTINE (14 MG/24 HR) PATCH TRANSDERM (12:20)
[2018-06-14] MEDS: LORAZEPAM 2 MG INJ IV (16:55)
== END 2018-06-14 20:05 | disposition home or self-care (01) | DRG 292 ==
LOC: MS1 06-13 23:39 → E/R 17:38 → 6WM 20:41
DX: I11.0 Hypertensive heart disease with heart failure (principal); Z68.43 Body mass index [BMI] 50.0-59.9, adult; J98.11 Atelectasis; E66.2 Morbid (severe) obesity with alveolar hypoventilation; R07.89 Other chest pain; I50.33 Acute on chronic diastolic (congestive) heart failure; E11.9 Type 2 diabetes mellitus without complications; J45.909 Unspecified asthma, uncomplicated; G89.29 Other chronic pain; I25.2 Old myocardial infarction; F17.200 Nicotine dependence, unspecified, uncomplicated; F41.9 Anxiety disorder, unspecified; Z76.5 Malingerer [conscious simulation]; I27.20 Pulmonary hypertension, unspecified; F12.10 Cannabis abuse, uncomplicated; E88.81 Metabolic syndrome and other insulin resistance; D25.9 Leiomyoma of uterus, unspecified; Z91.19 Patient's noncompliance with other medical treatment and regimen; Z79.82 Long term (current) use of aspirin; Z88.0 Allergy status to penicillin; Z91.14 Patient's other noncompliance with medication regimen
CPT/HCPCS: 36415; 71045; 74177; 80048; 80053; 80307; 81001; 82550; 82553; 82962; 83036; 83690; 83735; 84100; 84443; 84484; 84703; 85025; 93005; 93306; 94640; 94664; 96374; 96375; 99285-25; G0378

== ENCOUNTER 2018-06-21 23:49 | Inpatient (IN) | payer OTHER ==
[2018-06-22] MEDS: IPRATROPIUM (NEB) 0.5 MG/2.5 ML AMP INH (02:17)
[2018-06-22] MEDS: ALBUTEROL 0.083% (NEB) 2.5 MG/3 ML AMP INH (02:17)
[2018-06-22] MEDS: ONDANSETRON 4 MG INJ IV (02:20)
[2018-06-22] MEDS: HYDROmorphONE 1 MG/ML SYG IV (02:20)
[2018-06-22 02:46] LABS: ADD MAN DIFF? NO
[2018-06-22 02:48] LABS: WHITE BLOOD COUNT 10.4 10^3/ul (4.8-10.8)
[2018-06-22 02:48] LABS: BASOPHIL # 0.1 10^3/ul (0.0-0.1); BASOPHILS % 0.7 % (0.0-2.0); EOSINOPHILS # 0.2 10^3/ul (0.0-0.5); EOSINOPHILS % 2.2 % (0.0-7.0); HEMATOCRIT 42.5 % (37.0-47.0); HEMOGLOBIN 13.1 g/dl (12.0-16.0); LYMPHOCYTES # 2.3 10^3/ul (0.8-2.9); MEAN CORPUSCULAR HEMOGLOBIN 28.1 pg (29.0-33.0); MEAN CORPUSCULAR HGB CONC 30.8 g/dl (32.0-37.0); MEAN CORPUSCULAR VOLUME 91.2 fl (82.0-101.0); MEAN PLATELET VOLUME 10.9 fl (7.4-10.4); MONOCYTE # 0.6 10^3/ul (0.3-0.9); MONOCYTES % 6.2 % (0.0-11.0); NEUTROPHIL # 7.1 10^3/ul (1.6-7.5); NEUTROPHILS % 68.5 % (39.0-77.0); PLATELET COUNT 237 10^3/UL (140-415); RED BLOOD COUNT 4.66 10^6/ul (4.20-5.40); RED CELL DISTRIBUTION WIDTH 16.8 % (11.5-14.5)
[2018-06-22] MEDS: KETOROLAC 30 MG INJ IV (02:54)
[2018-06-22 03:06] LABS: ALANINE AMINOTRANSFERASE 23 IU/L (13-69); ALBUMIN 3.7 g/dl (3.3-4.9); ALBUMIN/GLOBULIN RATIO 0.94; ALKALINE PHOSPHATASE 106 IU/L (42-121); ANION GAP 9 (5-13); ASPARTATE AMINO TRANSFERASE 22 IU/L (15-46); BILIRUBIN,INDIRECT 0.4 mg/dl (0-1.1); BILIRUBIN,TOTAL 0.4 mg/dl (0.2-1.3); BLOOD UREA NITROGEN 17 mg/dl (7-20); CALCIUM 8.6 mg/dl (8.4-10.2); CARBON DIOXIDE 23 mmol/L (21-31); CHLORIDE 110 mmol/L (97-110); CREATININE 0.66 mg/dl (0.44-1.00); Estimated GFR > 60 mL/min (>60); GLUCOSE 105 mg/dl (70-220); POTASSIUM 4.2 mmol/L (3.5-5.1); SODIUM 142 mmol/L (135-144); TOTAL PROTEIN 7.6 g/dl (6.1-8.1)
[2018-06-22 03:07] LABS: INR 1.06; PROTIME 13.9 Sec (11.9-14.9); PT RATIO 1.1
[2018-06-22 03:08] LABS: PARTIAL THROMBOPLASTIN TIME 28.5 Sec (23.0-35.0)
[2018-06-22 03:17] LABS: B-TYPE NATRIURETIC PEPTIDE 3240 PG/ML (0-125); TROPONIN-I < 0.012 ng/ml (0.000-0.120)
[2018-06-22] MEDS: LORAZEPAM 2 MG INJ IV ×2 (04:34→23:59)
[2018-06-22] MEDS: FUROSEMIDE 40 MG INJ IV ×3 (04:34→17:36)
[2018-06-22] MEDS ORDERED: ALBUTEROL HFA 8 GM INHALER INH (06:00)
[2018-06-22] MEDS ORDERED: NACL 0.9% 3 ML SYG IV (07:30)
[2018-06-22] MEDS ORDERED: ACETAMINOPHEN 325 MG TAB PO (07:30)
[2018-06-22] MEDS ORDERED: ONDANSETRON 4 MG INJ IV (07:30)
[2018-06-22] MEDS ORDERED: DOCUSATE SODIUM 100 MG CAP PO (07:30)
[2018-06-22] MEDS: PANTOPRAZOLE (EC) 40 MG TAB PO (08:27)
[2018-06-22] MEDS: ASCORBIC ACID 500 MG TAB PO (08:56)
[2018-06-22] MEDS: NIFEdipine (XL) 30 MG TAB PO (08:56)
[2018-06-22] MEDS: FLUTICASONE/VILANTEROL 100-25 INH (08:56)
[2018-06-22] MEDS: FERROUS SULFATE (EC) 325 MG TAB PO ×2 (08:56→20:26)
[2018-06-22] MEDS: ISOSORBIDE MONONITRATE(SR)30 MG TAB PO (08:56)
[2018-06-22] MEDS: ENOXAPARIN 40 MG/0.4 ML SYG SC (08:57)
[2018-06-22] MEDS: ASPIRIN (EC) 81 MG TAB PO (08:57)
[2018-06-22] MEDS: ATENOLOL 50 MG TAB PO (08:57)
[2018-06-22] MEDS: NICOTINE (14 MG/24 HR) PATCH TRANSDERM (08:57)
[2018-06-22] MEDS ORDERED: FERROUS SULFATE (EC) 325 MG TAB PO (09:00)
[2018-06-22] MEDS: morphine 2 MG INJ IV ×3 (11:36→20:26)
[2018-06-22] MEDS ORDERED: hydrALAzine 20 MG INJ IV (12:00)
[2018-06-22] MEDS: HYDROCODONE/APAP (5/325) TAB PO ×2 (16:52→22:40)
[2018-06-22] MEDS: LEVALBUTEROL (NEB) 1.25 MG/0.5 ML AMP HHN (21:40)
[2018-06-22] MEDS: AL HYDROX/MG HYDROX/SIMETH 30 ML CUP PO (21:58)
[2018-06-23] MEDS: LEVALBUTEROL (NEB) 1.25 MG/0.5 ML AMP HHN ×2 (01:54→19:57)
[2018-06-23] MEDS: morphine 2 MG INJ IV ×3 (01:58→21:15)
[2018-06-23 06:40] LABS: ADD MAN DIFF? NO
[2018-06-23 07:02] LABS: WHITE BLOOD COUNT 9.9 10^3/ul (4.8-10.8)
[2018-06-23 07:02] LABS: BASOPHIL # 0.1 10^3/ul (0.0-0.1); BASOPHILS % 0.6 % (0.0-2.0); EOSINOPHILS # 0.3 10^3/ul (0.0-0.5); EOSINOPHILS % 3.4 % (0.0-7.0); HEMATOCRIT 42.1 % (37.0-47.0); HEMOGLOBIN 12.5 g/dl (12.0-16.0); LYMPHOCYTES # 2.3 10^3/ul (0.8-2.9); LYMPHOCYTES % 22.8 % (15.0-51.0); MEAN CORPUSCULAR HEMOGLOBIN 28.3 pg (29.0-33.0); MEAN CORPUSCULAR HGB CONC 29.7 g/dl (32.0-37.0); MEAN CORPUSCULAR VOLUME 95.2 fl (82.0-101.0); MEAN PLATELET VOLUME 11.7 fl (7.4-10.4); MONOCYTE # 0.8 10^3/ul (0.3-0.9); NEUTROPHIL # 6.4 10^3/ul (1.6-7.5); NEUTROPHILS % 64.6 % (39.0-77.0); PLATELET COUNT 259 10^3/UL (140-415); RED BLOOD COUNT 4.42 10^6/ul (4.20-5.40); RED CELL DISTRIBUTION WIDTH 16.8 % (11.5-14.5)
[2018-06-23 07:22] LABS: ALANINE AMINOTRANSFERASE 23 IU/L (13-69); ALBUMIN 3.5 g/dl (3.3-4.9); ALBUMIN/GLOBULIN RATIO 0.97; ALKALINE PHOSPHATASE 88 IU/L (42-121); ANION GAP 8 (5-13); ASPARTATE AMINO TRANSFERASE 20 IU/L (15-46); BILIRUBIN,INDIRECT 0.4 mg/dl (0-1.1); BILIRUBIN,TOTAL 0.4 mg/dl (0.2-1.3); BLOOD UREA NITROGEN 22 mg/dl (7-20); CALCIUM 8.7 mg/dl (8.4-10.2); CARBON DIOXIDE 27 mmol/L (21-31); CHLORIDE 105 mmol/L (97-110); CREATININE 0.78 mg/dl (0.44-1.00); Estimated GFR > 60 mL/min (>60); GLUCOSE 112 mg/dl (70-220); MAGNESIUM 2.3 mg/dl (1.7-2.5); POTASSIUM 4.4 mmol/L (3.5-5.1); SODIUM 140 mmol/L (135-144); TOTAL PROTEIN 7.1 g/dl (6.1-8.1)
[2018-06-23] MEDS: FERROUS SULFATE (EC) 325 MG TAB PO ×2 (11:22→20:30)
[2018-06-23] MEDS: ASPIRIN (EC) 81 MG TAB PO (11:22)
[2018-06-23] MEDS: ASCORBIC ACID 500 MG TAB PO (11:22)
[2018-06-23] MEDS: NICOTINE (14 MG/24 HR) PATCH TRANSDERM (11:22)
[2018-06-23] MEDS: NIFEdipine (XL) 30 MG TAB PO (11:23)
[2018-06-23] MEDS: ATENOLOL 50 MG TAB PO (11:23)
[2018-06-23] MEDS: ISOSORBIDE MONONITRATE(SR)30 MG TAB PO (11:23)
[2018-06-23] MEDS: FLUTICASONE/VILANTEROL 100-25 INH (11:25)
[2018-06-23] MEDS: ENOXAPARIN 40 MG/0.4 ML SYG SC (11:32)
[2018-06-23] MEDS: HYDROCODONE/APAP (10/325) TAB PO (13:35)
[2018-06-23] MEDS: FUROSEMIDE 40 MG INJ IV ×2 (16:50→17:48)
[2018-06-23] MEDS: PANTOPRAZOLE (EC) 40 MG TAB PO (17:19)
[2018-06-23] MEDS: LORAZEPAM 1 MG TAB PO (18:26)
[2018-06-23] MEDS ORDERED: clonAZEPAM 0.5 MG TAB PO (18:30)
[2018-06-23] MEDS: AL HYDROX/MG HYDROX/SIMETH 30 ML CUP PO (21:15)
[2018-06-23] MEDS: LORAZEPAM 2 MG INJ IV (22:58)
[2018-06-24] MEDS: morphine 2 MG INJ IV ×2 (01:17→05:05)
[2018-06-24] MEDS: LORAZEPAM 2 MG INJ IV ×2 (05:05→21:11)
[2018-06-24 05:46] LABS: ADD MAN DIFF? NO
[2018-06-24 05:47] LABS: BASOPHIL # 0.1 10^3/ul (0.0-0.1); BASOPHILS % 0.9 % (0.0-2.0); EOSINOPHILS # 0.3 10^3/ul (0.0-0.5); EOSINOPHILS % 3.5 % (0.0-7.0); HEMATOCRIT 42.1 % (37.0-47.0); HEMOGLOBIN 12.7 g/dl (12.0-16.0); LYMPHOCYTES # 2.1 10^3/ul (0.8-2.9); LYMPHOCYTES % 22.1 % (15.0-51.0); MEAN CORPUSCULAR HEMOGLOBIN 28.2 pg (29.0-33.0); MEAN CORPUSCULAR HGB CONC 30.2 g/dl (32.0-37.0); MEAN CORPUSCULAR VOLUME 93.3 fl (82.0-101.0); MEAN PLATELET VOLUME 11.4 fl (7.4-10.4); MONOCYTE # 0.8 10^3/ul (0.3-0.9); NEUTROPHILS % 64.2 % (39.0-77.0); PLATELET COUNT 258 10^3/UL (140-415); RED BLOOD COUNT 4.51 10^6/ul (4.20-5.40); RED CELL DISTRIBUTION WIDTH 16.8 % (11.5-14.5)
[2018-06-24 05:47] LABS: WHITE BLOOD COUNT 9.3 10^3/ul (4.8-10.8)
[2018-06-24] MEDS: PANTOPRAZOLE (EC) 40 MG TAB PO (06:02)
[2018-06-24 06:14] LABS: ANION GAP 10 (5-13); BLOOD UREA NITROGEN 27 mg/dl (7-20); CALCIUM 8.9 mg/dl (8.4-10.2); CARBON DIOXIDE 29 mmol/L (21-31); CHLORIDE 101 mmol/L (97-110); CREATININE 0.77 mg/dl (0.44-1.00); Estimated GFR > 60 mL/min (>60); GLUCOSE 104 mg/dl (70-220); MAGNESIUM 2.2 mg/dl (1.7-2.5); POTASSIUM 4.7 mmol/L (3.5-5.1); SODIUM 140 mmol/L (135-144)
[2018-06-24] MEDS: FUROSEMIDE 40 MG INJ IV ×2 (09:10→21:00)
[2018-06-24] MEDS: NIFEdipine (XL) 30 MG TAB PO (09:11)
[2018-06-24] MEDS: ASPIRIN (EC) 81 MG TAB PO (09:11)
[2018-06-24] MEDS: NICOTINE (14 MG/24 HR) PATCH TRANSDERM (09:11)
[2018-06-24] MEDS: ATENOLOL 50 MG TAB PO (09:11)
[2018-06-24] MEDS: FERROUS SULFATE (EC) 325 MG TAB PO ×2 (09:11→21:11)
[2018-06-24] MEDS: ASCORBIC ACID 500 MG TAB PO (09:11)
[2018-06-24] MEDS: ISOSORBIDE MONONITRATE(SR)30 MG TAB PO (09:11)
[2018-06-24] MEDS: ESCITALOPRAM 10 MG TAB PO (09:12)
[2018-06-24] MEDS: ENOXAPARIN 40 MG/0.4 ML SYG SC (09:26)
[2018-06-24] MEDS: HYDROCODONE/APAP (10/325) TAB PO ×2 (10:21→23:06)
[2018-06-24] MEDS: IOHEXOL 300MG/ML 150 ML BTL (14:24)
[2018-06-24] MEDS: SOD CHLORIDE 0.9% 100 ML (14:24)
[2018-06-24] MEDS: LEVALBUTEROL (NEB) 1.25 MG/0.5 ML AMP HHN (21:09)
[2018-06-24] MEDS: BISACODYL (EC) 5 MG TAB PO (21:11)
[2018-06-24] MEDS ORDERED: CEPASTAT LOZENGE MT (22:30)
[2018-06-24] MEDS ORDERED: POLYETHYLENE GLYCOL 17 GM PACKET PO (22:30)
[2018-06-24] MEDS: FLUTICASONE 0.05% 16 GM NAS SPRAY NASAL (22:30)
[2018-06-24] MEDS ORDERED: traMADol 50 MG TAB PO (22:30)
[2018-06-24] MEDS: NA PHOSPHATE/BIPHOS 133 ML ENEMA PR (23:13)
[2018-06-25] MEDS: LORAZEPAM 2 MG INJ IV ×2 (04:32→13:41)
[2018-06-25] MEDS: HYDROCODONE/APAP (10/325) TAB PO ×2 (07:37→15:09)
[2018-06-25] MEDS: PANTOPRAZOLE (EC) 40 MG TAB PO (07:37)
[2018-06-25 08:50] LABS: ADD MAN DIFF? NO
[2018-06-25 08:58] LABS: WHITE BLOOD COUNT 8.7 10^3/ul (4.8-10.8)
[2018-06-25 08:58] LABS: BASOPHIL # 0.1 10^3/ul (0.0-0.1); EOSINOPHILS # 0.3 10^3/ul (0.0-0.5); EOSINOPHILS % 3.7 % (0.0-7.0); HEMATOCRIT 40.8 % (37.0-47.0); HEMOGLOBIN 12.1 g/dl (12.0-16.0); LYMPHOCYTES # 1.5 10^3/ul (0.8-2.9); LYMPHOCYTES % 17.8 % (15.0-51.0); MEAN CORPUSCULAR HGB CONC 29.7 g/dl (32.0-37.0); MEAN CORPUSCULAR VOLUME 94.4 fl (82.0-101.0); MEAN PLATELET VOLUME 11.5 fl (7.4-10.4); MONOCYTE # 0.7 10^3/ul (0.3-0.9); MONOCYTES % 7.6 % (0.0-11.0); NEUTROPHILS % 69.4 % (39.0-77.0); PLATELET COUNT 252 10^3/UL (140-415); RED BLOOD COUNT 4.32 10^6/ul (4.20-5.40); RED CELL DISTRIBUTION WIDTH 16.8 % (11.5-14.5)
[2018-06-25] MEDS: FUROSEMIDE 40 MG INJ IV (09:00)
[2018-06-25] MEDS: ISOSORBIDE MONONITRATE(SR)30 MG TAB PO (09:00)
[2018-06-25] MEDS: NIFEdipine (XL) 30 MG TAB PO (09:00)
[2018-06-25] MEDS: FERROUS SULFATE (EC) 325 MG TAB PO (09:14)
[2018-06-25] MEDS: ASCORBIC ACID 500 MG TAB PO (09:14)
[2018-06-25] MEDS: ATENOLOL 50 MG TAB PO (09:14)
[2018-06-25] MEDS: ESCITALOPRAM 10 MG TAB PO (09:14)
[2018-06-25] MEDS: ASPIRIN (EC) 81 MG TAB PO (09:14)
[2018-06-25] MEDS: FLUTICASONE 0.05% 16 GM NAS SPRAY NASAL (09:15)
[2018-06-25 09:16] LABS: ANION GAP 10 (5-13); BLOOD UREA NITROGEN 25 mg/dl (7-20); CALCIUM 8.9 mg/dl (8.4-10.2); CARBON DIOXIDE 30 mmol/L (21-31); CHLORIDE 102 mmol/L (97-110); CREATININE 0.71 mg/dl (0.44-1.00); Estimated GFR > 60 mL/min (>60); GLUCOSE 130 mg/dl (70-220); POTASSIUM 4.2 mmol/L (3.5-5.1); SODIUM 142 mmol/L (135-144)
[2018-06-25] MEDS: ENOXAPARIN 40 MG/0.4 ML SYG SC (09:16)
[2018-06-25] MEDS: NICOTINE (14 MG/24 HR) PATCH TRANSDERM (09:17)
[2018-06-25] MEDS: FLUTICASONE/VILANTEROL 100-25 INH (11:43)
== END 2018-06-25 17:30 | disposition home health service (06) | DRG 292 ==
LOC: E/R 23:49 → 5EC 06-24 12:07 → 6WM 06-22 04:54
DX: I11.0 Hypertensive heart disease with heart failure (principal); J96.10 Chronic respiratory failure, unspecified whether with hypoxia or hypercapnia; Z68.43 Body mass index [BMI] 50.0-59.9, adult; F33.3 Major depressive disorder, recurrent, severe with psychotic symptoms; I50.33 Acute on chronic diastolic (congestive) heart failure; R10.30 Lower abdominal pain, unspecified; F41.9 Anxiety disorder, unspecified; G47.33 Obstructive sleep apnea (adult) (pediatric); Z91.14 Patient's other noncompliance with medication regimen; D50.9 Iron deficiency anemia, unspecified; Z76.5 Malingerer [conscious simulation]; E66.01 Morbid (severe) obesity due to excess calories; M17.0 Bilateral primary osteoarthritis of knee; R91.1 Solitary pulmonary nodule; R73.03 Prediabetes; Z72.0 Tobacco use
CPT/HCPCS: 71045; 71260; 80048; 80053; 83605; 83735; 83880; 84484; 85025; 85610; 85730; 87081; 87400; 93005; 94640; 94660; 94664; 96374; 96375; 99285-25; G0378

== ENCOUNTER 2018-08-13 18:34 | Observation (INO) | payer OTHER ==
[2018-08-13 19:44] LABS: ADD MAN DIFF? NO
[2018-08-13 19:45] LABS: BASOPHIL # 0.1 10^3/ul (0.0-0.1); BASOPHILS % 0.7 % (0.0-2.0); EOSINOPHILS # 0.2 10^3/ul (0.0-0.5); EOSINOPHILS % 2.4 % (0.0-7.0); HEMATOCRIT 46.5 % (37.0-47.0); HEMOGLOBIN 14.5 g/dl (12.0-16.0); LYMPHOCYTES # 1.8 10^3/ul (0.8-2.9); LYMPHOCYTES % 21.7 % (15.0-51.0); MEAN CORPUSCULAR HEMOGLOBIN 28.4 pg (29.0-33.0); MEAN CORPUSCULAR HGB CONC 31.2 g/dl (32.0-37.0); MEAN CORPUSCULAR VOLUME 91.2 fl (82.0-101.0); MEAN PLATELET VOLUME 10.8 fl (7.4-10.4); MONOCYTE # 0.5 10^3/ul (0.3-0.9); MONOCYTES % 6.2 % (0.0-11.0); NEUTROPHIL # 5.7 10^3/ul (1.6-7.5); NEUTROPHILS % 68.8 % (39.0-77.0); PLATELET COUNT 223 10^3/UL (140-415); RED CELL DISTRIBUTION WIDTH 15.7 % (11.5-14.5)
[2018-08-13 19:45] LABS: WHITE BLOOD COUNT 8.3 10^3/ul (4.8-10.8)
[2018-08-13] MEDS: NITROGLYCERIN 2% 1 GM OINT PKT TD (19:46)
[2018-08-13] MEDS: FUROSEMIDE 20 MG INJ IV (19:46)
[2018-08-13] MEDS: ASPIRIN 81 MG TAB PO (19:46)
[2018-08-13] MEDS: DIPHENHYDRAMINE 50 MG INJ IV (19:49)
[2018-08-13] MEDS: ONDANSETRON 4 MG INJ IV (19:49)
[2018-08-13] MEDS: HYDROmorphONE 1 MG/ML SYG IV (19:49)
[2018-08-13 20:05] LABS: ANION GAP 10 (5-13); BLOOD UREA NITROGEN 21 mg/dl (7-20); CALCIUM 9.2 mg/dl (8.4-10.2); CARBON DIOXIDE 26 mmol/L (21-31); CHLORIDE 107 mmol/L (97-110); CREATININE 0.64 mg/dl (0.44-1.00); Estimated GFR > 60 mL/min (>60); GLUCOSE 113 mg/dl (70-220); POTASSIUM 3.8 mmol/L (3.5-5.1); SODIUM 143 mmol/L (135-144)
[2018-08-13 20:17] LABS: B-TYPE NATRIURETIC PEPTIDE 2970 PG/ML (0-125); TROPONIN-I < 0.012 ng/ml (0.000-0.120)
[2018-08-13] MEDS ORDERED: ONDANSETRON 4 MG INJ IV ×2 (21:00→23:30)
[2018-08-13] MEDS ORDERED: ACETAMINOPHEN 325 MG TAB PO ×3 (21:00→23:30)
[2018-08-13] MEDS ORDERED: NITROGLYCERIN (SL) 0.4 MG TAB SL (23:30)
[2018-08-13] MEDS ORDERED: NACL 0.9% 3 ML SYG IV (23:30)
[2018-08-13] MEDS: HYDROCODONE/APAP (5/325) TAB PO (23:30)
[2018-08-13] MEDS ORDERED: ALBUTEROL/IPRATROPIUM (NEB) 3 ML AMP HHN (23:30)
[2018-08-13] MEDS: ALBUTEROL HFA 8 GM INHALER INH (23:30)
[2018-08-14] MEDS: ALBUTEROL HFA 8 GM INHALER INH ×6 (01:00→16:12)
[2018-08-14 01:46] LABS: CREATINE KINASE 34 IU/L (23-200)
[2018-08-14] MEDS: morphine 4 MG/ML VIAL IV (01:48)
[2018-08-14 01:59] LABS: CK INDEX 5.1; CK-MB 1.73 ng/ml (0.0-2.4); TROPONIN-I < 0.012 ng/ml (0.000-0.120)
[2018-08-14] MEDS: LORAZEPAM 1 MG TAB PO ×2 (02:28→10:05)
[2018-08-14] MEDS ORDERED: FLUTICASONE 0.05% 16 GM NAS SPRAY NASAL (02:30)
[2018-08-14] MEDS: NICOTINE (21 MG/24 HR) PATCH TRANSDERM ×2 (02:33→08:43)
[2018-08-14] MEDS: HYDROCODONE/APAP (5/325) TAB PO ×2 (05:24→12:40)
[2018-08-14] MEDS: LEVALBUTEROL (NEB) 1.25 MG/0.5 ML AMP HHN (05:26)
[2018-08-14] MEDS: PANTOPRAZOLE (EC) 40 MG TAB PO (07:25)
[2018-08-14] MEDS: ACCU-CHEK XX ×3 (07:25→17:25)
[2018-08-14 08:21] LABS: ADD MAN DIFF? NO
[2018-08-14 08:29] LABS: WHITE BLOOD COUNT 9.4 10^3/ul (4.8-10.8)
[2018-08-14 08:29] LABS: BASOPHIL # 0.1 10^3/ul (0.0-0.1); BASOPHILS % 0.7 % (0.0-2.0); EOSINOPHILS # 0.2 10^3/ul (0.0-0.5); EOSINOPHILS % 2.6 % (0.0-7.0); HEMATOCRIT 43.8 % (37.0-47.0); HEMOGLOBIN 13.3 g/dl (12.0-16.0); LYMPHOCYTES # 2.5 10^3/ul (0.8-2.9); LYMPHOCYTES % 26.9 % (15.0-51.0); MEAN CORPUSCULAR HEMOGLOBIN 28.4 pg (29.0-33.0); MEAN CORPUSCULAR HGB CONC 30.4 g/dl (32.0-37.0); MEAN CORPUSCULAR VOLUME 93.6 fl (82.0-101.0); MEAN PLATELET VOLUME 11.1 fl (7.4-10.4); MONOCYTE # 0.7 10^3/ul (0.3-0.9); MONOCYTES % 7.4 % (0.0-11.0); NEUTROPHIL # 5.8 10^3/ul (1.6-7.5); NEUTROPHILS % 62.1 % (39.0-77.0); PLATELET COUNT 202 10^3/UL (140-415); RED BLOOD COUNT 4.68 10^6/ul (4.20-5.40)
[2018-08-14] MEDS: metFORMIN 500 MG TAB PO ×2 (08:37→17:41)
[2018-08-14] MEDS: ESCITALOPRAM 10 MG TAB PO (08:37)
[2018-08-14] MEDS: ISOSORBIDE MONONITRATE(SR)30 MG TAB PO (08:37)
[2018-08-14] MEDS: FERROUS SULFATE (EC) 325 MG TAB PO (08:38)
[2018-08-14] MEDS: ATENOLOL 50 MG TAB PO (08:38)
[2018-08-14] MEDS: AMLODIPINE 10 MG TAB PO (08:39)
[2018-08-14] MEDS: ASPIRIN (EC) 81 MG TAB PO (08:39)
[2018-08-14] MEDS: BENAZEPRIL 20 MG TAB PO (08:39)
[2018-08-14] MEDS: NIFEdipine (XL) 30 MG TAB PO (08:39)
[2018-08-14] MEDS: HEPARIN 5,000 UNIT/1 ML VIAL SC (08:40)
[2018-08-14 08:49] LABS: HEMOGLOBIN A1C 6.5 % (0-5.9)
[2018-08-14 08:52] LABS: CREATINE KINASE 30 IU/L (23-200)
[2018-08-14 08:54] LABS: ALANINE AMINOTRANSFERASE 27 IU/L (13-69); ALBUMIN 3.1 g/dl (3.3-4.9); ALBUMIN/GLOBULIN RATIO 0.83; ALKALINE PHOSPHATASE 89 IU/L (42-121); ANION GAP 5 (5-13); ASPARTATE AMINO TRANSFERASE 24 IU/L (15-46); BILIRUBIN,INDIRECT 0.2 mg/dl (0-1.1); BILIRUBIN,TOTAL 0.2 mg/dl (0.2-1.3); BLOOD UREA NITROGEN 24 mg/dl (7-20); CALCIUM 8.9 mg/dl (8.4-10.2); CARBON DIOXIDE 31 mmol/L (21-31); CHLORIDE 105 mmol/L (97-110); CREATININE 0.92 mg/dl (0.44-1.00); Estimated GFR > 60 mL/min (>60); GLUCOSE 117 mg/dl (70-220); POTASSIUM 4.6 mmol/L (3.5-5.1); SODIUM 141 mmol/L (135-144); TOTAL PROTEIN 6.8 g/dl (6.1-8.1)
[2018-08-14] MEDS ORDERED: FERROUS SULFATE (EC) 325 MG TAB PO (09:00)
[2018-08-14] MEDS: FUROSEMIDE 20 MG TAB PO (09:00)
[2018-08-14] MEDS: FLUTICASONE/VILANTEROL 100-25 INH (09:00)
[2018-08-14] MEDS ORDERED: NICOTINE (21 MG/24 HR) PATCH TRANSDERM (09:00)
[2018-08-14 09:04] LABS: CK INDEX 4.8; CK-MB 1.45 ng/ml (0.0-2.4); TROPONIN-I < 0.012 ng/ml (0.000-0.120)
== END 2018-08-14 18:14 | disposition home or self-care (01) ==
LOC: TEL 20:33 → E/R 18:34
PROVIDERS: Internal Medicine
DX: I27.20 Pulmonary hypertension, unspecified (principal); G47.33 Obstructive sleep apnea (adult) (pediatric); E66.2 Morbid (severe) obesity with alveolar hypoventilation; Z68.44 Body mass index [BMI] 60.0-69.9, adult; R07.9 Chest pain, unspecified; I11.0 Hypertensive heart disease with heart failure; I50.9 Heart failure, unspecified; Z79.82 Long term (current) use of aspirin; Z72.0 Tobacco use; M25.562 Pain in left knee
CPT/HCPCS: 71045; 73562; 80048; 80053; 82550; 82553; 82962; 83036; 83735; 83880; 84484; 84703; 85025; 93005; 94664; G0378

== ENCOUNTER 2018-08-15 00:12 | Emergency (ER) | payer OTHER ==
[2018-08-15 01:13] LABS: ADD MAN DIFF? NO
[2018-08-15 01:21] LABS: BASOPHIL # 0.1 10^3/ul (0.0-0.1); BASOPHILS % 0.7 % (0.0-2.0); EOSINOPHILS # 0.1 10^3/ul (0.0-0.5); EOSINOPHILS % 1.5 % (0.0-7.0); HEMATOCRIT 43.9 % (37.0-47.0); HEMOGLOBIN 13.4 g/dl (12.0-16.0); LYMPHOCYTES # 2.3 10^3/ul (0.8-2.9); LYMPHOCYTES % 23.9 % (15.0-51.0); MEAN CORPUSCULAR HEMOGLOBIN 28.5 pg (29.0-33.0); MEAN CORPUSCULAR HGB CONC 30.5 g/dl (32.0-37.0); MEAN CORPUSCULAR VOLUME 93.4 fl (82.0-101.0); MEAN PLATELET VOLUME 11.1 fl (7.4-10.4); MONOCYTE # 0.7 10^3/ul (0.3-0.9); MONOCYTES % 6.8 % (0.0-11.0); NEUTROPHIL # 6.4 10^3/ul (1.6-7.5); NEUTROPHILS % 66.7 % (39.0-77.0); PLATELET COUNT 223 10^3/UL (140-415); RED CELL DISTRIBUTION WIDTH 15.8 % (11.5-14.5)
[2018-08-15 01:21] LABS: WHITE BLOOD COUNT 9.7 10^3/ul (4.8-10.8)
[2018-08-15] MEDS: KETOROLAC 15 MG INJ IV (01:24)
[2018-08-15] MEDS: DIPHENHYDRAMINE 50 MG INJ IM (01:24)
[2018-08-15 01:33] LABS: ALANINE AMINOTRANSFERASE 28 IU/L (13-69); ALBUMIN 3.5 g/dl (3.3-4.9); ALBUMIN/GLOBULIN RATIO 0.92; ALKALINE PHOSPHATASE 92 IU/L (42-121); ANION GAP 9 (5-13); ASPARTATE AMINO TRANSFERASE 35 IU/L (15-46); BILIRUBIN,INDIRECT 0.3 mg/dl (0-1.1); BILIRUBIN,TOTAL 0.3 mg/dl (0.2-1.3); BLOOD UREA NITROGEN 34 mg/dl (7-20); CARBON DIOXIDE 26 mmol/L (21-31); CHLORIDE 106 mmol/L (97-110); CREATININE 1.37 mg/dl (0.44-1.00); Estimated GFR 42 mL/min (>60); GLUCOSE 113 mg/dl (70-220); POTASSIUM 4.7 mmol/L (3.5-5.1); SODIUM 141 mmol/L (135-144); TOTAL PROTEIN 7.3 g/dl (6.1-8.1)
[2018-08-15 01:45] LABS: B-TYPE NATRIURETIC PEPTIDE 4010 PG/ML (0-125); TROPONIN-I < 0.012 ng/ml (0.000-0.120)
[2018-08-15 01:46] LABS: D-DIMER 968.17 ng/ml (<460)
[2018-08-15] MEDS: IODIXANOL LOCM 100 ML BTL (02:24)
[2018-08-15] MEDS: SOD CHLORIDE 0.9% 100 ML (02:24)
[2018-08-15] MEDS: FUROSEMIDE 40 MG INJ IV (06:38)
== END 2018-08-15 10:14 | disposition home or self-care (01) ==
LOC: E/R 00:12
DX: I27.20 Pulmonary hypertension, unspecified (principal); I50.9 Heart failure, unspecified; J44.9 Chronic obstructive pulmonary disease, unspecified; I25.2 Old myocardial infarction; Z79.82 Long term (current) use of aspirin; Z79.84 Long term (current) use of oral hypoglycemic drugs; Z87.891 Personal history of nicotine dependence
CPT/HCPCS: 71045; 71275; 80053; 83880; 84484; 84703; 85025; 85378; 93005; 96372; 96374; 96375; 99285-25

== ENCOUNTER 2018-09-29 11:45 | Inpatient (IN) | payer OTHER ==
[2018-09-29] MEDS ORDERED: DOCUSATE SODIUM 100 MG CAP PO (13:30)
[2018-09-29] MEDS ORDERED: ACETAMINOPHEN 325 MG TAB PO (13:30)
[2018-09-29] MEDS ORDERED: NACL 0.9% 3 ML SYG IV (13:30)
[2018-09-29] MEDS ORDERED: MAGNESIUM HYDROXIDE 30ML CUP PO (13:30)
[2018-09-29] MEDS ORDERED: ONDANSETRON 4 MG INJ IV (13:30)
[2018-09-29] MEDS ORDERED: NITROGLYCERIN (SL) 0.4 MG TAB SL (13:30)
[2018-09-29 14:24] LABS: ADD MAN DIFF? NO
[2018-09-29 14:26] LABS: BASOPHIL # 0.1 10^3/ul (0.0-0.1); BASOPHILS % 0.7 % (0.0-2.0); EOSINOPHILS # 0.1 10^3/ul (0.0-0.5); EOSINOPHILS % 1.9 % (0.0-7.0); HEMOGLOBIN 13.3 g/dl (12.0-16.0); LYMPHOCYTES # 1.7 10^3/ul (0.8-2.9); LYMPHOCYTES % 22.8 % (15.0-51.0); MEAN CORPUSCULAR HEMOGLOBIN 28.5 pg (29.0-33.0); MEAN CORPUSCULAR HGB CONC 30.2 g/dl (32.0-37.0); MEAN CORPUSCULAR VOLUME 94.2 fl (82.0-101.0); MONOCYTE # 0.9 10^3/ul (0.3-0.9); MONOCYTES % 11.6 % (0.0-11.0); NEUTROPHIL # 4.6 10^3/ul (1.6-7.5); NEUTROPHILS % 62.7 % (39.0-77.0); PLATELET COUNT 213 10^3/UL (140-415); RED BLOOD COUNT 4.67 10^6/ul (4.20-5.40); RED CELL DISTRIBUTION WIDTH 17.2 % (11.5-14.5)
[2018-09-29 14:26] LABS: WHITE BLOOD COUNT 7.4 10^3/ul (4.8-10.8)
[2018-09-29 14:47] LABS: ALBUMIN 3.5 g/dl (3.3-4.9); ANION GAP 8 (5-13); BLOOD UREA NITROGEN 25 mg/dl (7-20); CALCIUM 8.4 mg/dl (8.4-10.2); CARBON DIOXIDE 25 mmol/L (21-31); CHLORIDE 106 mmol/L (97-110); CREATININE 0.98 mg/dl (0.44-1.00); GLUCOSE 90 mg/dl (70-220); MAGNESIUM 2.1 mg/dl (1.7-2.5); PHOSPHORUS 4.5 mg/dl (2.5-4.9); POTASSIUM 4.6 mmol/L (3.5-5.1); SODIUM 139 mmol/L (135-144)
[2018-09-29 14:59] LABS: B-TYPE NATRIURETIC PEPTIDE 3400 PG/ML (0-125)
[2018-09-29] MEDS: ALBUTEROL 0.083% (NEB) 2.5 MG/3 ML AMP HHN ×2 (15:00→20:20)
[2018-09-29] MEDS ORDERED: ALBUTEROL 0.083% (NEB) 2.5 MG/3 ML AMP HHN (15:00)
[2018-09-29] MEDS ORDERED: HYDROCODONE/APAP (5/325) TAB PO (15:30)
[2018-09-29] MEDS: LEVOFLOXACIN 750MG/D5W (PMX) 150 ML IVPB (15:58)
[2018-09-29] MEDS: morphine 2 MG INJ IV (15:58)
[2018-09-29] MEDS: FUROSEMIDE 20 MG INJ IV (17:10)
[2018-09-29] MEDS: METHYLPREDNISOLONE 40 MG INJ IV (17:11)
[2018-09-29] MEDS ORDERED: GLUCOSE GEL 15 GRAM TUBE BUCCAL (17:30)
[2018-09-29] MEDS ORDERED: GLUCAGON 1 MG INJ IM (17:30)
[2018-09-29] MEDS ORDERED: DEXTROSE 50% 50 ML SYRINGE IV ×2 (17:30)
[2018-09-29] MEDS ORDERED: LORAZEPAM 2 MG INJ IV (17:30)
[2018-09-29] MEDS ORDERED: GLUCOSE GEL 15 GRAM TUBE PO ×2 (17:30)
[2018-09-29] MEDS: LORAZEPAM 2 MG INJ IV (17:55)
[2018-09-29] MEDS: INSULIN ASPART [NOVOLOG] 3 ML PEN SC ×2 (17:59→20:50)
[2018-09-29] MEDS ORDERED: FUROSEMIDE 40 MG INJ IV (18:00)
[2018-09-29] MEDS ORDERED: BUMETANIDE 1 MG INJ IV (18:00)
[2018-09-29] MEDS: FERROUS SULFATE (EC) 325 MG TAB PO (20:51)
[2018-09-29] MEDS: morphine 4 MG/ML VIAL IV (23:25)
[2018-09-30] MEDS: ALBUTEROL 0.083% (NEB) 2.5 MG/3 ML AMP HHN ×4 (01:33→19:48)
[2018-09-30] MEDS: METHYLPREDNISOLONE 40 MG INJ IV ×3 (01:50→20:39)
[2018-09-30] MEDS: HYDROCODONE/APAP (10/325) TAB PO (01:51)
[2018-09-30] MEDS: ACCU-CHEK XX (02:10)
[2018-09-30] MEDS: LORAZEPAM 2 MG INJ IV ×3 (03:14→16:41)
[2018-09-30] MEDS: FUROSEMIDE 20 MG INJ IV ×2 (05:03→17:37)
[2018-09-30] MEDS: morphine 4 MG/ML VIAL IV ×4 (05:03→17:37)
[2018-09-30] MEDS: PANTOPRAZOLE (EC) 40 MG TAB PO (06:05)
[2018-09-30 06:26] LABS: ABNORMAL IP MESSAGE 1; HEMATOCRIT 41.6 % (37.0-47.0); HEMOGLOBIN 12.8 g/dl (12.0-16.0); MEAN CORPUSCULAR HGB CONC 30.8 g/dl (32.0-37.0); MEAN CORPUSCULAR VOLUME 94.1 fl (82.0-101.0); MEAN PLATELET VOLUME 11.3 fl (7.4-10.4); PLATELET COUNT 192 10^3/UL (140-415); RED BLOOD COUNT 4.42 10^6/ul (4.20-5.40); RED CELL DISTRIBUTION WIDTH 16.8 % (11.5-14.5)
[2018-09-30 06:26] LABS: WHITE BLOOD COUNT 6.3 10^3/ul (4.8-10.8)
[2018-09-30 06:58] LABS: ADD MAN DIFF? YES; POSITIVE DIFF @See below
[2018-09-30 07:19] LABS: ANION GAP 9 (5-13); BLOOD UREA NITROGEN 28 mg/dl (7-20); CARBON DIOXIDE 24 mmol/L (21-31); CHLORIDE 106 mmol/L (97-110); CREATININE 0.89 mg/dl (0.44-1.00); GLUCOSE 188 mg/dl (70-220); POTASSIUM 4.7 mmol/L (3.5-5.1); SODIUM 139 mmol/L (135-144)
[2018-09-30 07:20] LABS: ALANINE AMINOTRANSFERASE 25 IU/L (13-69); ALBUMIN 3.3 g/dl (3.3-4.9); ALBUMIN/GLOBULIN RATIO 0.84; ALKALINE PHOSPHATASE 112 IU/L (42-121); ASPARTATE AMINO TRANSFERASE 26 IU/L (15-46); BILIRUBIN,INDIRECT 0.4 mg/dl (0-1.1); BILIRUBIN,TOTAL 0.4 mg/dl (0.2-1.3); CALCIUM 8.5 mg/dl (8.4-10.2); Estimated GFR > 60 mL/min (>60); TOTAL PROTEIN 7.2 g/dl (6.1-8.1)
[2018-09-30] MEDS: INSULIN ASPART [NOVOLOG] 3 ML PEN SC ×4 (07:40→20:40)
[2018-09-30] MEDS: FLUTICASONE/VILANTEROL 100-25 INH (08:56)
[2018-09-30] MEDS: ESCITALOPRAM 10 MG TAB PO (08:58)
[2018-09-30] MEDS: FERROUS SULFATE (EC) 325 MG TAB PO ×2 (08:58→20:39)
[2018-09-30] MEDS: ISOSORBIDE MONONITRATE(SR)30 MG TAB PO (08:58)
[2018-09-30] MEDS: NIFEdipine (XL) 30 MG TAB PO (08:59)
[2018-09-30] MEDS: ASPIRIN (EC) 81 MG TAB PO (08:59)
[2018-09-30] MEDS: ATENOLOL 50 MG TAB PO (09:00)
[2018-09-30] MEDS ORDERED: HYDROCHLOROTHIAZIDE 12.5 MG CAP PO (09:00)
[2018-09-30] MEDS ORDERED: AMLODIPINE 10 MG TAB PO (09:00)
[2018-09-30] MEDS ORDERED: BENAZEPRIL 20 MG TAB PO (09:00)
[2018-09-30] MEDS: ENOXAPARIN 40 MG/0.4 ML SYG SC (09:05)
[2018-09-30 12:21] LABS: ANISOCYTOSIS 1+ (0-0); BAND NEUTROPHILS #M 0.5 10^3/ul (0.0-0.6); BAND NEUTROPHILS % (M) 8 % (0-4); BURR CELLS 1+ (0-0); GIANT THROMBO% (M) 5 % (0-0); LYMPHOCYTES #M 0.4 10^3/ul (0.8-2.9); LYMPHOCYTES % (M) 7 % (15-51); MONOCYTE #M 0.1 10^3/ul (0.3-0.9); MONOCYTES % (M) 2 % (0-11); PLATELET ESTIMATE NORMAL; POIKILOCYTOSIS 3+ (0-0); POLYCHROMASIA 1+ (0-0); REACTIVE LYMPHOCYTES% (M) 1 % (0-0); SEG NEUT #M 5.2 10^3/ul (1.6-7.5); SEGMENTED NEUTROPHILS (M) % 82 % (39-77); SMUDGE%M 4 % (0-0); TARGET CELLS 1+ (0-0)
[2018-09-30] MEDS: GUAIFENESIN/CODEINE 5ML CUP PO ×2 (12:59→20:39)
[2018-09-30] MEDS: LEVOFLOXACIN 750MG/D5W (PMX) 150 ML IVPB (15:29)
[2018-10-01] MEDS: morphine 4 MG/ML VIAL IV ×3 (00:09→08:46)
[2018-10-01] MEDS: LORAZEPAM 2 MG INJ IV ×2 (01:10→11:28)
[2018-10-01] MEDS: ACCU-CHEK XX (01:10)
[2018-10-01] MEDS: ALBUTEROL 0.083% (NEB) 2.5 MG/3 ML AMP HHN ×3 (01:31→13:14)
[2018-10-01] MEDS: FUROSEMIDE 20 MG INJ IV (05:03)
[2018-10-01] MEDS: PANTOPRAZOLE (EC) 40 MG TAB PO (05:03)
[2018-10-01] MEDS: INSULIN ASPART [NOVOLOG] 3 ML PEN SC ×2 (08:00→12:00)
[2018-10-01] MEDS: METHYLPREDNISOLONE 40 MG INJ IV (08:46)
[2018-10-01] MEDS: ESCITALOPRAM 10 MG TAB PO (08:47)
[2018-10-01] MEDS: ISOSORBIDE MONONITRATE(SR)30 MG TAB PO (08:48)
[2018-10-01] MEDS: FERROUS SULFATE (EC) 325 MG TAB PO (08:48)
[2018-10-01] MEDS: ASPIRIN (EC) 81 MG TAB PO (08:49)
[2018-10-01] MEDS: NIFEdipine (XL) 30 MG TAB PO (08:49)
[2018-10-01] MEDS: ATENOLOL 50 MG TAB PO (08:49)
[2018-10-01] MEDS: NICOTINE (21 MG/24 HR) PATCH TRANSDERM (08:50)
[2018-10-01] MEDS: ENOXAPARIN 40 MG/0.4 ML SYG SC (08:57)
[2018-10-01] MEDS: FLUTICASONE/VILANTEROL 100-25 INH (09:02)
[2018-10-01] MEDS: LEVOFLOXACIN 750 MG TABLET PO (16:15)
[2018-10-01] MEDS ORDERED: NYSTATIN 15 GM OINT TOP (21:00)
== END 2018-10-01 16:20 | disposition home or self-care (01) | DRG 190 ==
LOC: 6WM 11:45
DX: J44.1 Chronic obstructive pulmonary disease with (acute) exacerbation (principal); I50.33 Acute on chronic diastolic (congestive) heart failure; Z68.44 Body mass index [BMI] 60.0-69.9, adult; I11.0 Hypertensive heart disease with heart failure; R55 Syncope and collapse; E66.01 Morbid (severe) obesity due to excess calories; E78.5 Hyperlipidemia, unspecified; F17.200 Nicotine dependence, unspecified, uncomplicated; E11.9 Type 2 diabetes mellitus without complications; Z79.01 Long term (current) use of anticoagulants; Z88.0 Allergy status to penicillin
CPT/HCPCS: 80053; 80069; 82962; 83036; 83735; 83880; 85025; 87081; 94640; 94660; 94664; 95819; 97161; 97165

== ENCOUNTER 2018-10-17 17:40 | Inpatient (IN) | payer OTHER ==
[2018-10-17] MEDS ORDERED: ONDANSETRON 4 MG INJ IV (19:00)
[2018-10-17] MEDS ORDERED: GLUCOSE GEL 15 GRAM TUBE BUCCAL (19:00)
[2018-10-17] MEDS ORDERED: NITROGLYCERIN (SL) 0.4 MG TAB SL (19:00)
[2018-10-17] MEDS ORDERED: BISACODYL (EC) 5 MG TAB PO (19:00)
[2018-10-17] MEDS ORDERED: GLUCOSE GEL 15 GRAM TUBE PO ×2 (19:00)
[2018-10-17] MEDS ORDERED: ACETAMINOPHEN 325 MG TAB PO (19:00)
[2018-10-17] MEDS ORDERED: GLUCAGON 1 MG INJ IM (19:00)
[2018-10-17] MEDS ORDERED: MAGNESIUM HYDROXIDE 30ML CUP PO (19:00)
[2018-10-17] MEDS ORDERED: NACL 0.9% 3 ML SYG IV (19:00)
[2018-10-17] MEDS ORDERED: DEXTROSE 50% 50 ML SYRINGE IV ×2 (19:00)
[2018-10-17] MEDS ORDERED: DOCUSATE SODIUM 100 MG CAP PO (19:00)
[2018-10-17] MEDS: FERROUS SULFATE (EC) 325 MG TAB PO ×2 (21:00→21:02)
[2018-10-17] MEDS: INSULIN ASPART [NOVOLOG] 3 ML PEN SC (21:00)
[2018-10-18] MEDS: morphine 2 MG INJ IV ×4 (00:07→18:28)
[2018-10-18] MEDS: ALBUTEROL/IPRATROPIUM (NEB) 3 ML AMP HHN ×2 (01:55→16:12)
[2018-10-18] MEDS: HYDROCODONE/APAP (10/325) TAB PO ×2 (03:34→17:25)
[2018-10-18] MEDS: PANTOPRAZOLE (EC) 40 MG TAB PO (06:38)
[2018-10-18] MEDS: FUROSEMIDE 40 MG INJ IV ×2 (06:38→17:27)
[2018-10-18] MEDS: INSULIN ASPART [NOVOLOG] 3 ML PEN SC ×4 (07:55→21:00)
[2018-10-18] MEDS: ASPIRIN (EC) 81 MG TAB PO (08:30)
[2018-10-18] MEDS: FERROUS SULFATE (EC) 325 MG TAB PO ×2 (08:30→21:34)
[2018-10-18] MEDS: BENAZEPRIL 20 MG TAB PO ×2 (08:31→21:00)
[2018-10-18] MEDS: NIFEdipine (XL) 30 MG TAB PO (08:32)
[2018-10-18] MEDS: ISOSORBIDE MONONITRATE(SR)30 MG TAB PO (08:32)
[2018-10-18] MEDS: ATENOLOL 50 MG TAB PO (08:32)
[2018-10-18] MEDS: ESCITALOPRAM 10 MG TAB PO (08:33)
[2018-10-18] MEDS: FLUTICASONE/VILANTEROL 100-25 INH (08:33)
[2018-10-18 08:37] LABS: ADD MAN DIFF? NO
[2018-10-18 08:45] LABS: BASOPHILS % 0.3 % (0.0-2.0); EOSINOPHILS # 0.3 10^3/ul (0.0-0.5); EOSINOPHILS % 2.9 % (0.0-7.0); HEMATOCRIT 38.4 % (37.0-47.0); HEMOGLOBIN 12.2 g/dl (12.0-16.0); LYMPHOCYTES # 1.5 10^3/ul (0.8-2.9); LYMPHOCYTES % 17.3 % (15.0-51.0); MEAN CORPUSCULAR HGB CONC 31.8 g/dl (32.0-37.0); MEAN CORPUSCULAR VOLUME 91.2 fl (82.0-101.0); MEAN PLATELET VOLUME 11.2 fl (7.4-10.4); MONOCYTE # 0.7 10^3/ul (0.3-0.9); MONOCYTES % 7.9 % (0.0-11.0); NEUTROPHIL # 6.2 10^3/ul (1.6-7.5); NEUTROPHILS % 71.4 % (39.0-77.0); PLATELET COUNT 158 10^3/UL (140-415); RED BLOOD COUNT 4.21 10^6/ul (4.20-5.40); RED CELL DISTRIBUTION WIDTH 18.3 % (11.5-14.5)
[2018-10-18 08:45] LABS: WHITE BLOOD COUNT 8.7 10^3/ul (4.8-10.8)
[2018-10-18 09:08] LABS: ANION GAP 8 (5-13); BLOOD UREA NITROGEN 18 mg/dl (7-20); CALCIUM 8.7 mg/dl (8.4-10.2); CARBON DIOXIDE 28 mmol/L (21-31); CHLORIDE 104 mmol/L (97-110); CREATININE 0.64 mg/dl (0.44-1.00); Estimated GFR > 60 mL/min (>60); GLUCOSE 117 mg/dl (70-220); MAGNESIUM 1.6 mg/dl (1.7-2.5); POTASSIUM 3.5 mmol/L (3.5-5.1); SODIUM 140 mmol/L (135-144)
[2018-10-18 09:12] LABS: CREATINE KINASE 26 IU/L (23-200)
[2018-10-18 09:16] LABS: CK INDEX 3.4; CK-MB 0.89 ng/ml (0.0-2.4); TROPONIN-I < 0.012 ng/ml (0.000-0.120)
[2018-10-18 09:17] LABS: B-TYPE NATRIURETIC PEPTIDE 4360 PG/ML (0-125)
[2018-10-18 12:51] LABS: CREATINE KINASE 24 IU/L (23-200)
[2018-10-18 13:05] LABS: CK INDEX 3.3; TROPONIN-I < 0.012 ng/ml (0.000-0.120)
[2018-10-18] MEDS: ENOXAPARIN 40 MG/0.4 ML SYG SC (14:59)
[2018-10-18] MEDS: MAGNESIUM SULFATE 2 GM/50 ML 50 ML IVPB (16:18)
[2018-10-18] MEDS: metFORMIN 500 MG TAB PO (17:26)
[2018-10-18] MEDS: LEVOFLOXACIN 500 MG TAB PO (17:30)
[2018-10-18] MEDS: POTASSIUM CHLORIDE (SR) 20 MEQ TAB PO (18:32)
[2018-10-18 20:45] LABS: CREATINE KINASE 33 IU/L (23-200)
[2018-10-18 20:59] LABS: CK INDEX 3.6; CK-MB 1.19 ng/ml (0.0-2.4); TROPONIN-I < 0.012 ng/ml (0.000-0.120)
[2018-10-18] MEDS: LORAZEPAM 0.5 MG TAB PO (22:34)
[2018-10-18 23:29] LABS: PROCALCITONIN 0.54 ng/mL (0.00-0.10)
[2018-10-19] MEDS: morphine 2 MG INJ IV ×2 (01:36→05:12)
[2018-10-19] MEDS: FUROSEMIDE 40 MG INJ IV (06:00)
[2018-10-19] MEDS: PANTOPRAZOLE (EC) 40 MG TAB PO (06:47)
[2018-10-19] MEDS: LEVOFLOXACIN 500 MG TAB PO (06:47)
== END 2018-10-19 09:31 | disposition left against medical advice (07) | DRG 291 ==
LOC: TEL 17:40
PROVIDERS: Internal Medicine
PROC: 5A09357 Assistance with Respiratory Ventilation, Less than 24 Consecutive Hours, Continuous Positive Airway Pressure (ICD-10-PCS; principal; 2018-10-18)
DX: I11.0 Hypertensive heart disease with heart failure (principal); J96.01 Acute respiratory failure with hypoxia; J44.1 Chronic obstructive pulmonary disease with (acute) exacerbation; Z68.44 Body mass index [BMI] 60.0-69.9, adult; I50.33 Acute on chronic diastolic (congestive) heart failure; E83.42 Hypomagnesemia; E66.01 Morbid (severe) obesity due to excess calories; E11.9 Type 2 diabetes mellitus without complications; D64.9 Anemia, unspecified; F41.9 Anxiety disorder, unspecified; Z76.5 Malingerer [conscious simulation]; G47.33 Obstructive sleep apnea (adult) (pediatric); F17.200 Nicotine dependence, unspecified, uncomplicated; E66.9 Obesity, unspecified; R07.89 Other chest pain; Z91.14 Patient's other noncompliance with medication regimen; Z79.4 Long term (current) use of insulin; Z79.82 Long term (current) use of aspirin
CPT/HCPCS: 71045; 80048; 82550; 82553; 82962; 83735; 83880; 84145; 84484; 84703; 85025; 87081; 94640; 94660; 94664

== ENCOUNTER 2018-12-05 09:43 | Inpatient (IN) | payer OTHER ==
[2018-12-05] MEDS ORDERED: ONDANSETRON 4 MG INJ IV (10:00)
[2018-12-05] MEDS ORDERED: ZOLPIDEM 5 MG TAB PO (12:00)
[2018-12-05] MEDS ORDERED: NACL 0.9% 3 ML SYG IV (12:00)
[2018-12-05] MEDS ORDERED: GLUCAGON 1 MG INJ IM (12:30)
[2018-12-05] MEDS ORDERED: GLUCOSE GEL 15 GRAM TUBE PO ×2 (12:30)
[2018-12-05] MEDS ORDERED: DEXTROSE 50% 50 ML SYRINGE IV ×2 (12:30)
[2018-12-05] MEDS ORDERED: GLUCOSE GEL 15 GRAM TUBE BUCCAL (12:30)
[2018-12-05] MEDS: LORAZEPAM 0.5 MG TAB PO ×2 (12:31→21:49)
[2018-12-05] MEDS: FUROSEMIDE 40 MG INJ IV (12:36)
[2018-12-05] MEDS: TIOTROPIUM 18 MCG CAPSULE INHA DEV INH (12:37)
[2018-12-05] MEDS: FLUTICASONE/VILANTEROL 200-25 INH DEVICE INH (12:38)
[2018-12-05] MEDS: VENLAFAXINE (XR) 37.5 MG CAP PO (13:30)
[2018-12-05] MEDS: GABAPENTIN 300 MG CAP PO ×2 (13:41→21:48)
[2018-12-05] MEDS ORDERED: SILDENAFIL 20 MG TAB PO (14:00)
[2018-12-05] MEDS: ACCU-CHEK XX ×3 (14:10→20:34)
[2018-12-05] MEDS: SILDENAFIL 20 MG TAB PO ×2 (14:34→21:49)
[2018-12-05] MEDS: metFORMIN 500 MG TAB PO (17:50)
[2018-12-05] MEDS: MONTELUKAST 10 MG TAB PO (20:34)
[2018-12-05] MEDS: LOSARTAN 25 MG TAB PO (20:35)
[2018-12-05] MEDS: HEPARIN 5,000 UNIT/1 ML VIAL SC (20:43)
[2018-12-05] MEDS: NICOTINE (21 MG/24 HR) PATCH TRANSDERM (21:50)
[2018-12-05] MEDS: ACETAMINOPHEN 325 MG TAB PO (21:55)
[2018-12-05] MEDS: KETOROLAC 15 MG INJ IV (23:46)
[2018-12-06] MEDS: DIPHENHYDRAMINE 50 MG INJ IV ×3 (00:15→22:56)
[2018-12-06] MEDS: ALBUTEROL/IPRATROPIUM (NEB) 3 ML AMP HHN ×3 (00:29→19:35)
[2018-12-06] MEDS: GABAPENTIN 300 MG CAP PO ×3 (06:00→22:24)
[2018-12-06] MEDS: PANTOPRAZOLE (EC) 40 MG TAB PO (06:00)
[2018-12-06] MEDS: ACCU-CHEK XX ×6 (07:00→20:00)
[2018-12-06] MEDS: TIOTROPIUM 18 MCG CAPSULE INHA DEV INH (08:55)
[2018-12-06] MEDS: FLUTICASONE/VILANTEROL 200-25 INH DEVICE INH (08:55)
[2018-12-06] MEDS: NICOTINE (21 MG/24 HR) PATCH TRANSDERM (08:56)
[2018-12-06] MEDS: BUPROPION (XL) 150 MG TAB PO (08:57)
[2018-12-06] MEDS: SPIRONOLACTONE 25 MG TAB PO (08:57)
[2018-12-06] MEDS: VENLAFAXINE (XR) 75 MG CAP PO (08:57)
[2018-12-06] MEDS: SILDENAFIL 20 MG TAB PO ×3 (08:57→22:40)
[2018-12-06] MEDS: ASPIRIN (EC) 81 MG TAB PO (08:58)
[2018-12-06] MEDS: FUROSEMIDE 40 MG INJ IV ×2 (08:58→22:23)
[2018-12-06] MEDS: LOSARTAN 25 MG TAB PO ×2 (08:58→22:24)
[2018-12-06] MEDS: metFORMIN 500 MG TAB PO ×2 (08:58→16:59)
[2018-12-06] MEDS: KETOROLAC 15 MG INJ IV ×3 (08:59→22:26)
[2018-12-06] MEDS: HEPARIN 5,000 UNIT/1 ML VIAL SC ×2 (09:29→22:28)
[2018-12-06] MEDS: MONTELUKAST 10 MG TAB PO (22:24)
[2018-12-06] MEDS: DOCUSATE SODIUM 100 MG CAP PO (22:59)
[2018-12-07] MEDS: ALBUTEROL/IPRATROPIUM (NEB) 3 ML AMP HHN ×2 (00:03→05:31)
[2018-12-07] MEDS: KETOROLAC 15 MG INJ IV ×3 (05:47→22:59)
[2018-12-07] MEDS: PANTOPRAZOLE (EC) 40 MG TAB PO (06:00)
[2018-12-07] MEDS: SILDENAFIL 20 MG TAB PO ×3 (06:00→23:13)
[2018-12-07] MEDS: GABAPENTIN 300 MG CAP PO ×3 (06:01→22:36)
[2018-12-07] MEDS: metFORMIN 500 MG TAB PO (06:06)
[2018-12-07] MEDS: DIPHENHYDRAMINE 50 MG INJ IV ×2 (06:06→22:59)
[2018-12-07] MEDS: BUPROPION (XL) 150 MG TAB PO (06:06)
[2018-12-07] MEDS: ACCU-CHEK XX ×5 (07:00→19:35)
[2018-12-07] MEDS: VENLAFAXINE (XR) 75 MG CAP PO (08:16)
[2018-12-07] MEDS: TIOTROPIUM 18 MCG CAPSULE INHA DEV INH (08:16)
[2018-12-07] MEDS: SPIRONOLACTONE 25 MG TAB PO (08:16)
[2018-12-07] MEDS: LOSARTAN 25 MG TAB PO (08:16)
[2018-12-07] MEDS: FUROSEMIDE 40 MG INJ IV ×2 (08:16→22:36)
[2018-12-07] MEDS: ASPIRIN (EC) 81 MG TAB PO (08:16)
[2018-12-07] MEDS: FLUTICASONE/VILANTEROL 200-25 INH DEVICE INH (08:17)
[2018-12-07] MEDS: NICOTINE (21 MG/24 HR) PATCH TRANSDERM (08:18)
[2018-12-07] MEDS: HEPARIN 5,000 UNIT/1 ML VIAL SC ×2 (08:42→22:37)
[2018-12-07] MEDS: LORAZEPAM 0.5 MG TAB PO (14:14)
[2018-12-07] MEDS: SALINE 0.65% 45 ML NAS SPRAY NASAL (15:01)
[2018-12-07] MEDS: morphine 2 MG INJ IV (20:23)
[2018-12-07] MEDS: MONTELUKAST 10 MG TAB PO (22:36)
[2018-12-08] MEDS: DOCUSATE SODIUM 100 MG CAP PO (00:06)
[2018-12-08] MEDS: BISACODYL (EC) 5 MG TAB PO ×2 (00:30→08:44)
[2018-12-08] MEDS: KETOROLAC 15 MG INJ IV (06:13)
[2018-12-08] MEDS: PANTOPRAZOLE (EC) 40 MG TAB PO (06:19)
[2018-12-08] MEDS: SILDENAFIL 20 MG TAB PO ×3 (06:19→21:09)
[2018-12-08] MEDS: BUPROPION (XL) 150 MG TAB PO (06:19)
[2018-12-08] MEDS: GABAPENTIN 300 MG CAP PO ×3 (06:19→21:09)
[2018-12-08] MEDS: metFORMIN 500 MG TAB PO (06:24)
[2018-12-08] MEDS: ACCU-CHEK XX ×6 (06:24→19:35)
[2018-12-08] MEDS: LOSARTAN 25 MG TAB PO (08:44)
[2018-12-08] MEDS: SPIRONOLACTONE 25 MG TAB PO (08:44)
[2018-12-08] MEDS: VENLAFAXINE (XR) 75 MG CAP PO (08:45)
[2018-12-08] MEDS: NICOTINE (21 MG/24 HR) PATCH TRANSDERM (08:45)
[2018-12-08] MEDS: HEPARIN 5,000 UNIT/1 ML VIAL SC ×2 (08:46→21:10)
[2018-12-08] MEDS: FUROSEMIDE 40 MG INJ IV ×3 (09:06→21:09)
[2018-12-08] MEDS: TIOTROPIUM 18 MCG CAPSULE INHA DEV INH (12:39)
[2018-12-08] MEDS: FLUTICASONE/VILANTEROL 200-25 INH DEVICE INH (12:40)
[2018-12-08] MEDS: ALBUTEROL/IPRATROPIUM (NEB) 3 ML AMP HHN (13:35)
[2018-12-08] MEDS: MONTELUKAST 10 MG TAB PO (21:08)
[2018-12-08] MEDS: DIPHENHYDRAMINE 50 MG INJ IV (21:25)
[2018-12-09] MEDS: GABAPENTIN 300 MG CAP PO ×4 (05:42→21:57)
[2018-12-09] MEDS: SILDENAFIL 20 MG TAB PO ×3 (05:42→21:57)
[2018-12-09] MEDS: PANTOPRAZOLE (EC) 40 MG TAB PO (05:42)
[2018-12-09] MEDS: LORAZEPAM 0.5 MG TAB PO (06:15)
[2018-12-09] MEDS: KETOROLAC 30 MG INJ IV ×2 (06:19→22:19)
[2018-12-09] MEDS: ACCU-CHEK XX ×6 (07:05→18:28)
[2018-12-09] MEDS: BUPROPION (XL) 150 MG TAB PO (08:16)
[2018-12-09] MEDS: TIOTROPIUM 18 MCG CAPSULE INHA DEV INH (08:16)
[2018-12-09] MEDS: NICOTINE (21 MG/24 HR) PATCH TRANSDERM (08:16)
[2018-12-09] MEDS: BISACODYL (EC) 5 MG TAB PO (08:16)
[2018-12-09] MEDS: VENLAFAXINE (XR) 75 MG CAP PO (08:16)
[2018-12-09] MEDS: FLUTICASONE/VILANTEROL 200-25 INH DEVICE INH (08:23)
[2018-12-09] MEDS: HEPARIN 5,000 UNIT/1 ML VIAL SC ×2 (08:27→21:59)
[2018-12-09] MEDS: DICLOFENAC SODIUM 1% GEL 100 GM TUBE TP (21:00)
[2018-12-09] MEDS: MONTELUKAST 10 MG TAB PO (21:57)
[2018-12-09] MEDS: LACTOBACILLUS RHAMNOSUS CAP PO (21:57)
[2018-12-09] MEDS: DIPHENHYDRAMINE 50 MG INJ IV (23:38)
[2018-12-10] MEDS: PANTOPRAZOLE (EC) 40 MG TAB PO (06:46)
[2018-12-10] MEDS: GABAPENTIN 300 MG CAP PO ×3 (06:46→22:34)
[2018-12-10] MEDS: SILDENAFIL 20 MG TAB PO ×3 (06:47→22:37)
[2018-12-10] MEDS: ACCU-CHEK XX ×6 (07:05→19:35)
[2018-12-10] MEDS: BISACODYL (EC) 5 MG TAB PO (08:15)
[2018-12-10] MEDS: VENLAFAXINE (XR) 75 MG CAP PO (08:15)
[2018-12-10] MEDS: DICLOFENAC SODIUM 1% GEL 100 GM TUBE TP ×2 (08:15→20:57)
[2018-12-10] MEDS: ASPIRIN (EC) 81 MG TAB PO (08:15)
[2018-12-10] MEDS: LACTOBACILLUS RHAMNOSUS CAP PO ×2 (08:15→20:58)
[2018-12-10] MEDS: FLUTICASONE/VILANTEROL 200-25 INH DEVICE INH (08:16)
[2018-12-10] MEDS: TIOTROPIUM 18 MCG CAPSULE INHA DEV INH (08:16)
[2018-12-10] MEDS: BUPROPION (XL) 150 MG TAB PO (08:21)
[2018-12-10] MEDS: HEPARIN 5,000 UNIT/1 ML VIAL SC (08:21)
[2018-12-10] MEDS ORDERED: BUMETANIDE 1 MG INJ IV (13:30)
[2018-12-10] MEDS: THIAMINE 100 MG TAB PO (13:38)
[2018-12-10] MEDS: KETOROLAC 30 MG INJ IV ×2 (15:17→22:44)
[2018-12-10] MEDS: BUMETANIDE 2 MG in DEXTROSE 5% 17 ML IV ×2 (16:24→20:58)
[2018-12-10] MEDS: MONTELUKAST 10 MG TAB PO (20:58)
[2018-12-11] MEDS: GABAPENTIN 300 MG CAP PO ×3 (06:27→22:00)
[2018-12-11] MEDS: PANTOPRAZOLE (EC) 40 MG TAB PO (06:27)
[2018-12-11] MEDS: SILDENAFIL 20 MG TAB PO ×3 (06:30→22:00)
[2018-12-11] MEDS: ACCU-CHEK XX ×6 (08:22→20:35)
[2018-12-11] MEDS: LOSARTAN 25 MG TAB PO (09:15)
[2018-12-11] MEDS: BISACODYL (EC) 5 MG TAB PO (09:17)
[2018-12-11] MEDS: BUPROPION (XL) 150 MG TAB PO (09:17)
[2018-12-11] MEDS: THIAMINE 100 MG TAB PO (09:17)
[2018-12-11] MEDS: LACTOBACILLUS RHAMNOSUS CAP PO ×2 (09:17→20:35)
[2018-12-11] MEDS: VENLAFAXINE (XR) 75 MG CAP PO (09:17)
[2018-12-11] MEDS: ASPIRIN (EC) 81 MG TAB PO (09:17)
[2018-12-11] MEDS: TIOTROPIUM 18 MCG CAPSULE INHA DEV INH (09:19)
[2018-12-11] MEDS: BUMETANIDE 2 MG in DEXTROSE 5% 17 ML IV ×3 (09:19→20:35)
[2018-12-11] MEDS: FLUTICASONE/VILANTEROL 200-25 INH DEVICE INH (09:20)
[2018-12-11] MEDS: DICLOFENAC SODIUM 1% GEL 100 GM TUBE TP ×2 (09:22→21:00)
[2018-12-11] MEDS: metFORMIN 500 MG TAB PO (17:29)
[2018-12-11] MEDS: MONTELUKAST 10 MG TAB PO (20:35)
[2018-12-11] MEDS: LORAZEPAM 0.5 MG TAB PO (22:19)
[2018-12-12] MEDS: traMADol 50 MG TAB PO ×2 (01:30→22:18)
[2018-12-12] MEDS: GABAPENTIN 300 MG CAP PO ×3 (06:00→21:38)
[2018-12-12] MEDS: SILDENAFIL 20 MG TAB PO ×3 (06:25→21:38)
[2018-12-12] MEDS: PANTOPRAZOLE (EC) 40 MG TAB PO (06:25)
[2018-12-12] MEDS: ACCU-CHEK XX ×6 (08:49→19:35)
[2018-12-12] MEDS: TIOTROPIUM 18 MCG CAPSULE INHA DEV INH (08:52)
[2018-12-12] MEDS: VENLAFAXINE (XR) 75 MG CAP PO (08:54)
[2018-12-12] MEDS: THIAMINE 100 MG TAB PO (08:57)
[2018-12-12] MEDS: LIDOCAINE 5% PATCH TD (08:57)
[2018-12-12] MEDS: BISACODYL (EC) 5 MG TAB PO (08:58)
[2018-12-12] MEDS: LACTOBACILLUS RHAMNOSUS CAP PO ×2 (08:58→21:38)
[2018-12-12] MEDS: LOSARTAN 25 MG TAB PO (08:59)
[2018-12-12] MEDS: DICLOFENAC SODIUM 1% GEL 100 GM TUBE TP ×2 (08:59→22:20)
[2018-12-12] MEDS: ASPIRIN (EC) 81 MG TAB PO (08:59)
[2018-12-12] MEDS: BUPROPION (XL) 150 MG TAB PO (08:59)
[2018-12-12] MEDS: metFORMIN 500 MG TAB PO ×2 (08:59→16:46)
[2018-12-12] MEDS: FLUTICASONE/VILANTEROL 200-25 INH DEVICE INH (09:00)
[2018-12-12] MEDS: BUMETANIDE 2 MG in DEXTROSE 5% 17 ML IV ×3 (09:13→21:42)
[2018-12-12] MEDS: MONTELUKAST 10 MG TAB PO (21:38)
[2018-12-12] MEDS: HEPARIN 5,000 UNIT/1 ML VIAL SC (21:42)
[2018-12-13] MEDS: DIPHENHYDRAMINE 50 MG INJ IV ×2 (02:06→23:06)
[2018-12-13] MEDS: GABAPENTIN 300 MG CAP PO ×3 (06:45→21:05)
[2018-12-13] MEDS: PANTOPRAZOLE (EC) 40 MG TAB PO (06:45)
[2018-12-13] MEDS: SILDENAFIL 20 MG TAB PO ×3 (06:47→21:04)
[2018-12-13] MEDS: ACCU-CHEK XX ×6 (07:05→19:39)
[2018-12-13] MEDS: BUPROPION (XL) 150 MG TAB PO (07:05)
[2018-12-13] MEDS: metFORMIN 500 MG TAB PO ×2 (08:17→17:16)
[2018-12-13] MEDS: SPIRONOLACTONE 25 MG TAB PO (09:00)
[2018-12-13] MEDS: VENLAFAXINE (XR) 75 MG CAP PO (09:00)
[2018-12-13] MEDS: LOSARTAN 25 MG TAB PO (09:00)
[2018-12-13] MEDS: traMADol 50 MG TAB PO ×2 (09:18→22:02)
[2018-12-13] MEDS: BISACODYL (EC) 5 MG TAB PO (09:19)
[2018-12-13] MEDS: LACTOBACILLUS RHAMNOSUS CAP PO ×2 (09:19→20:42)
[2018-12-13] MEDS: BUMETANIDE 2 MG in DEXTROSE 5% 17 ML IV ×3 (09:19→20:42)
[2018-12-13] MEDS: ASPIRIN (EC) 81 MG TAB PO (09:20)
[2018-12-13] MEDS: LIDOCAINE 5% PATCH TD (09:20)
[2018-12-13] MEDS: TIOTROPIUM 18 MCG CAPSULE INHA DEV INH (09:20)
[2018-12-13] MEDS: THIAMINE 100 MG TAB PO (09:20)
[2018-12-13] MEDS: FLUTICASONE/VILANTEROL 200-25 INH DEVICE INH (09:21)
[2018-12-13] MEDS: DICLOFENAC SODIUM 1% GEL 100 GM TUBE TP ×2 (09:22→20:53)
[2018-12-13] MEDS: HEPARIN 5,000 UNIT/1 ML VIAL SC ×2 (09:37→21:00)
[2018-12-13] MEDS: ALBUTEROL/IPRATROPIUM (NEB) 3 ML AMP HHN ×2 (19:34→22:45)
[2018-12-13] MEDS: MONTELUKAST 10 MG TAB PO (20:42)
[2018-12-13] MEDS: NICOTINE (21 MG/24 HR) PATCH TRANSDERM (20:44)
[2018-12-14] MEDS: LORAZEPAM 0.5 MG TAB PO (03:02)
[2018-12-14] MEDS: SILDENAFIL 20 MG TAB PO ×3 (06:30→21:17)
[2018-12-14] MEDS: GABAPENTIN 300 MG CAP PO ×3 (06:30→21:17)
[2018-12-14] MEDS: PANTOPRAZOLE (EC) 40 MG TAB PO (06:30)
[2018-12-14] MEDS: BUPROPION (XL) 150 MG TAB PO (07:05)
[2018-12-14] MEDS: ACCU-CHEK XX ×6 (07:05→19:35)
[2018-12-14] MEDS: NICOTINE (21 MG/24 HR) PATCH TRANSDERM (08:21)
[2018-12-14] MEDS: LIDOCAINE 5% PATCH TD (08:22)
[2018-12-14] MEDS: LOSARTAN 25 MG TAB PO (08:22)
[2018-12-14] MEDS: metFORMIN 500 MG TAB PO ×2 (08:23→17:51)
[2018-12-14] MEDS: ASPIRIN (EC) 81 MG TAB PO (08:23)
[2018-12-14] MEDS: LACTOBACILLUS RHAMNOSUS CAP PO ×2 (08:23→21:17)
[2018-12-14] MEDS: VENLAFAXINE (XR) 75 MG CAP PO (08:23)
[2018-12-14] MEDS: SPIRONOLACTONE 25 MG TAB PO ×2 (08:23→18:34)
[2018-12-14] MEDS: THIAMINE 100 MG TAB PO (08:23)
[2018-12-14] MEDS: FLUTICASONE/VILANTEROL 200-25 INH DEVICE INH (08:24)
[2018-12-14] MEDS: DICLOFENAC SODIUM 1% GEL 100 GM TUBE TP ×2 (08:25→21:26)
[2018-12-14] MEDS: HEPARIN 5,000 UNIT/1 ML VIAL SC ×2 (08:28→21:18)
[2018-12-14] MEDS: TIOTROPIUM 18 MCG CAPSULE INHA DEV INH (11:07)
[2018-12-14] MEDS: BUMETANIDE 1 MG TAB PO ×2 (12:38→17:52)
[2018-12-14] MEDS ORDERED: BUMETANIDE 2 MG in DEXTROSE 5% 17 ML IVPB (18:30)
[2018-12-14] MEDS: POTASSIUM CHLORIDE (SR) 20 MEQ TAB PO (18:34)
[2018-12-14] MEDS: MONTELUKAST 10 MG TAB PO (21:17)
[2018-12-15] MEDS: traMADol 50 MG TAB PO ×3 (00:09→20:37)
[2018-12-15] MEDS: ALBUTEROL/IPRATROPIUM (NEB) 3 ML AMP HHN ×2 (00:31→22:46)
[2018-12-15] MEDS: LORAZEPAM 0.5 MG TAB PO ×2 (02:19→22:26)
[2018-12-15] MEDS: BUMETANIDE 2 MG in DEXTROSE 5% 17 ML IVPB ×2 (06:00→18:20)
[2018-12-15] MEDS: PANTOPRAZOLE (EC) 40 MG TAB PO (06:36)
[2018-12-15] MEDS: GABAPENTIN 300 MG CAP PO ×3 (06:37→20:39)
[2018-12-15] MEDS: SPIRONOLACTONE 25 MG TAB PO ×2 (06:40→17:22)
[2018-12-15] MEDS: SILDENAFIL 20 MG TAB PO ×3 (06:40→20:39)
[2018-12-15] MEDS: ACCU-CHEK XX ×6 (07:05→19:35)
[2018-12-15] MEDS: LIDOCAINE 5% PATCH TD (08:18)
[2018-12-15] MEDS: NICOTINE (21 MG/24 HR) PATCH TRANSDERM (08:18)
[2018-12-15] MEDS: LACTOBACILLUS RHAMNOSUS CAP PO ×2 (08:19→20:40)
[2018-12-15] MEDS: ASPIRIN (EC) 81 MG TAB PO (08:19)
[2018-12-15] MEDS: HEPARIN 5,000 UNIT/1 ML VIAL SC ×2 (08:19→20:43)
[2018-12-15] MEDS: metFORMIN 500 MG TAB PO ×2 (08:20→17:19)
[2018-12-15] MEDS: BUPROPION (XL) 150 MG TAB PO (08:20)
[2018-12-15] MEDS: VENLAFAXINE (XR) 75 MG CAP PO (08:20)
[2018-12-15] MEDS: THIAMINE 100 MG TAB PO (08:20)
[2018-12-15] MEDS: LOSARTAN 25 MG TAB PO (08:21)
[2018-12-15] MEDS: TIOTROPIUM 18 MCG CAPSULE INHA DEV INH (08:26)
[2018-12-15] MEDS: FLUTICASONE/VILANTEROL 200-25 INH DEVICE INH (08:31)
[2018-12-15] MEDS: DICLOFENAC SODIUM 1% GEL 100 GM TUBE TP ×2 (08:32→20:46)
[2018-12-15] MEDS: MONTELUKAST 10 MG TAB PO (20:39)
[2018-12-16] MEDS: DIPHENHYDRAMINE 50 MG INJ IV ×2 (01:34→23:19)
[2018-12-16] MEDS: BUMETANIDE 2 MG in DEXTROSE 5% 17 ML IVPB ×3 (06:28→17:32)
[2018-12-16] MEDS: BUPROPION (XL) 150 MG TAB PO (06:29)
[2018-12-16] MEDS: SPIRONOLACTONE 25 MG TAB PO ×2 (06:29→17:25)
[2018-12-16] MEDS: PANTOPRAZOLE (EC) 40 MG TAB PO (06:29)
[2018-12-16] MEDS: GABAPENTIN 300 MG CAP PO ×4 (06:30→20:43)
[2018-12-16] MEDS: metFORMIN 500 MG TAB PO ×2 (06:30→17:25)
[2018-12-16] MEDS: ACCU-CHEK XX ×6 (06:31→19:35)
[2018-12-16] MEDS: VENLAFAXINE (XR) 75 MG CAP PO ×2 (08:48→08:57)
[2018-12-16] MEDS: LIDOCAINE 5% PATCH TD (08:50)
[2018-12-16] MEDS: NICOTINE (21 MG/24 HR) PATCH TRANSDERM (08:50)
[2018-12-16] MEDS: SILDENAFIL 20 MG TAB PO ×2 (08:52→20:47)
[2018-12-16] MEDS: TIOTROPIUM 18 MCG CAPSULE INHA DEV INH (08:53)
[2018-12-16] MEDS: FLUTICASONE/VILANTEROL 200-25 INH DEVICE INH (08:58)
[2018-12-16] MEDS: THIAMINE 100 MG TAB PO (08:58)
[2018-12-16] MEDS: ASPIRIN (EC) 81 MG TAB PO (08:58)
[2018-12-16] MEDS: DICLOFENAC SODIUM 1% GEL 100 GM TUBE TP ×2 (08:58→20:46)
[2018-12-16] MEDS: LACTOBACILLUS RHAMNOSUS CAP PO ×2 (08:58→20:46)
[2018-12-16] MEDS: HEPARIN 5,000 UNIT/1 ML VIAL SC ×2 (09:00→20:45)
[2018-12-16] MEDS: traMADol 50 MG TAB PO ×2 (10:05→20:43)
[2018-12-16] MEDS: SALINE 0.65% 45 ML NAS SPRAY NASAL (13:47)
[2018-12-16] MEDS: MONTELUKAST 10 MG TAB PO (20:46)
[2018-12-17] MEDS ORDERED: DOCUSATE SODIUM 100 MG CAP PO
[2018-12-17] MEDS: LORAZEPAM 0.5 MG TAB PO ×2 (00:19→21:53)
[2018-12-17] MEDS: SPIRONOLACTONE 25 MG TAB PO ×2 (06:38→17:13)
[2018-12-17] MEDS: PANTOPRAZOLE (EC) 40 MG TAB PO (06:38)
[2018-12-17] MEDS: GABAPENTIN 300 MG CAP PO ×3 (06:38→21:53)
[2018-12-17] MEDS: BUMETANIDE 2 MG in DEXTROSE 5% 17 ML IVPB ×2 (06:38→17:13)
[2018-12-17] MEDS: ACCU-CHEK XX ×6 (07:05→19:35)
[2018-12-17] MEDS: FLUTICASONE/VILANTEROL 200-25 INH DEVICE INH (08:39)
[2018-12-17] MEDS: DICLOFENAC SODIUM 1% GEL 100 GM TUBE TP ×2 (08:39→21:56)
[2018-12-17] MEDS: TIOTROPIUM 18 MCG CAPSULE INHA DEV INH (08:43)
[2018-12-17] MEDS: LACTOBACILLUS RHAMNOSUS CAP PO ×2 (08:44→21:54)
[2018-12-17] MEDS: ASPIRIN (EC) 81 MG TAB PO (08:44)
[2018-12-17] MEDS: DOCUSATE SODIUM 100 MG CAP PO ×2 (08:44→21:53)
[2018-12-17] MEDS: THIAMINE 100 MG TAB PO (08:44)
[2018-12-17] MEDS: metFORMIN 500 MG TAB PO ×2 (08:45→17:13)
[2018-12-17] MEDS: NICOTINE (21 MG/24 HR) PATCH TRANSDERM (08:45)
[2018-12-17] MEDS: SILDENAFIL 20 MG TAB PO ×2 (08:45→21:54)
[2018-12-17] MEDS: LIDOCAINE 5% PATCH TD (08:45)
[2018-12-17] MEDS: ENOXAPARIN 40 MG/0.4 ML SYG SC (08:48)
[2018-12-17] MEDS: traMADol 50 MG TAB PO (18:15)
[2018-12-17] MEDS: ALBUTEROL/IPRATROPIUM (NEB) 3 ML AMP HHN (21:17)
[2018-12-17] MEDS: MONTELUKAST 10 MG TAB PO (21:53)
[2018-12-17] MEDS: DIPHENHYDRAMINE 50 MG INJ IV (21:58)
[2018-12-18] MEDS: DIPHENHYDRAMINE 50 MG INJ IV ×3 (04:23→22:44)
[2018-12-18] MEDS: traMADol 50 MG TAB PO ×3 (04:24→20:42)
[2018-12-18] MEDS: GABAPENTIN 300 MG CAP PO ×3 (06:37→21:58)
[2018-12-18] MEDS: PANTOPRAZOLE (EC) 40 MG TAB PO (06:37)
[2018-12-18] MEDS: BUMETANIDE 1 MG TAB PO (06:37)
[2018-12-18] MEDS: metFORMIN 500 MG TAB PO ×2 (06:38→17:28)
[2018-12-18] MEDS: ACCU-CHEK XX ×6 (06:38→19:35)
[2018-12-18] MEDS: SPIRONOLACTONE 25 MG TAB PO ×2 (06:38→17:28)
[2018-12-18] MEDS: TIOTROPIUM 18 MCG CAPSULE INHA DEV INH (09:17)
[2018-12-18] MEDS: FLUTICASONE/VILANTEROL 200-25 INH DEVICE INH (09:17)
[2018-12-18] MEDS: LACTOBACILLUS RHAMNOSUS CAP PO ×2 (09:19→20:41)
[2018-12-18] MEDS: ASPIRIN (EC) 81 MG TAB PO (09:19)
[2018-12-18] MEDS: SILDENAFIL 20 MG TAB PO ×2 (09:20→20:42)
[2018-12-18] MEDS: THIAMINE 100 MG TAB PO (09:20)
[2018-12-18] MEDS: DOCUSATE SODIUM 100 MG CAP PO ×2 (09:20→20:41)
[2018-12-18] MEDS: NICOTINE (21 MG/24 HR) PATCH TRANSDERM (09:23)
[2018-12-18] MEDS: DICLOFENAC SODIUM 1% GEL 100 GM TUBE TP ×2 (09:30→20:43)
[2018-12-18] MEDS: ENOXAPARIN 40 MG/0.4 ML SYG SC (09:31)
[2018-12-18] MEDS: LIDOCAINE 5% PATCH TD (09:32)
[2018-12-18] MEDS: MONTELUKAST 10 MG TAB PO (20:41)
[2018-12-19] MEDS: ALBUTEROL/IPRATROPIUM (NEB) 3 ML AMP HHN ×2 (00:07→23:05)
[2018-12-19] MEDS: LORAZEPAM 0.5 MG TAB PO ×2 (00:58→22:47)
[2018-12-19] MEDS ORDERED: HYDROCORTISONE 0.5% 28.35 GM CR TOP (03:00)
[2018-12-19] MEDS: KETOROLAC 30 MG INJ IV (03:09)
[2018-12-19] MEDS: HYDROCORTISONE 0.5% 28.35 GM CR TOP (03:37)
[2018-12-19] MEDS: DIPHENHYDRAMINE 50 MG INJ IV ×3 (04:48→18:12)
[2018-12-19] MEDS: PANTOPRAZOLE (EC) 40 MG TAB PO (05:20)
[2018-12-19] MEDS: GABAPENTIN 300 MG CAP PO ×3 (05:20→21:12)
[2018-12-19] MEDS: BUMETANIDE 1 MG TAB PO (05:27)
[2018-12-19] MEDS: SPIRONOLACTONE 25 MG TAB PO ×2 (05:27→18:08)
[2018-12-19] MEDS: ACCU-CHEK XX ×3 (07:05→17:05)
[2018-12-19] MEDS: LIDOCAINE 5% PATCH TD (09:00)
[2018-12-19] MEDS: SILDENAFIL 20 MG TAB PO ×2 (09:00→21:16)
[2018-12-19] MEDS: TIOTROPIUM 18 MCG CAPSULE INHA DEV INH (09:44)
[2018-12-19] MEDS: ENOXAPARIN 40 MG/0.4 ML SYG SC (09:45)
[2018-12-19] MEDS: NICOTINE (21 MG/24 HR) PATCH TRANSDERM (09:46)
[2018-12-19] MEDS: THIAMINE 100 MG TAB PO (09:47)
[2018-12-19] MEDS: DICLOFENAC SODIUM 1% GEL 100 GM TUBE TP ×2 (09:47→21:12)
[2018-12-19] MEDS: LACTOBACILLUS RHAMNOSUS CAP PO ×2 (09:47→21:11)
[2018-12-19] MEDS: ASPIRIN (EC) 81 MG TAB PO (09:47)
[2018-12-19] MEDS: metFORMIN 500 MG TAB PO ×2 (09:48→18:08)
[2018-12-19] MEDS: DOCUSATE SODIUM 100 MG CAP PO ×2 (09:49→21:11)
[2018-12-19] MEDS: FLUTICASONE/VILANTEROL 200-25 INH DEVICE INH (09:54)
[2018-12-19] MEDS: traMADol 50 MG TAB PO ×2 (10:40→18:12)
[2018-12-19] MEDS: BISACODYL (EC) 5 MG TAB PO (15:28)
[2018-12-19] MEDS: MONTELUKAST 10 MG TAB PO (21:11)
[2018-12-20] MEDS: DIPHENHYDRAMINE 50 MG INJ IV ×3 (00:16→22:28)
[2018-12-20] MEDS: PANTOPRAZOLE (EC) 40 MG TAB PO (06:29)
[2018-12-20] MEDS: GABAPENTIN 300 MG CAP PO ×3 (06:29→21:15)
[2018-12-20] MEDS: SPIRONOLACTONE 25 MG TAB PO ×2 (06:29→17:20)
[2018-12-20] MEDS: BUMETANIDE 1 MG TAB PO (06:30)
[2018-12-20] MEDS: traMADol 50 MG TAB PO ×2 (06:33→22:28)
[2018-12-20] MEDS: ACCU-CHEK XX ×3 (08:10→17:05)
[2018-12-20] MEDS: ASPIRIN (EC) 81 MG TAB PO (08:10)
[2018-12-20] MEDS: DOCUSATE SODIUM 100 MG CAP PO (08:10)
[2018-12-20] MEDS: metFORMIN 500 MG TAB PO ×2 (08:10→17:21)
[2018-12-20] MEDS: NICOTINE (21 MG/24 HR) PATCH TRANSDERM (08:11)
[2018-12-20] MEDS: LACTOBACILLUS RHAMNOSUS CAP PO ×3 (08:11→21:14)
[2018-12-20] MEDS: SILDENAFIL 20 MG TAB PO ×2 (08:11→21:15)
[2018-12-20] MEDS: THIAMINE 100 MG TAB PO (08:11)
[2018-12-20] MEDS: LIDOCAINE 5% PATCH TD (08:12)
[2018-12-20] MEDS: DICLOFENAC SODIUM 1% GEL 100 GM TUBE TP ×2 (08:13→21:16)
[2018-12-20] MEDS: FLUTICASONE/VILANTEROL 200-25 INH DEVICE INH (08:13)
[2018-12-20] MEDS: ENOXAPARIN 40 MG/0.4 ML SYG SC (08:19)
[2018-12-20] MEDS: TIOTROPIUM 18 MCG CAPSULE INHA DEV INH (09:00)
[2018-12-20] MEDS: LORAZEPAM 0.5 MG TAB PO (11:06)
[2018-12-20] MEDS: ALBUTEROL/IPRATROPIUM (NEB) 3 ML AMP HHN (11:41)
[2018-12-20] MEDS: MONTELUKAST 10 MG TAB PO (21:15)
[2018-12-21] MEDS: ALBUTEROL/IPRATROPIUM (NEB) 3 ML AMP HHN ×2 (01:40→19:52)
[2018-12-21] MEDS: LORAZEPAM 0.5 MG TAB PO (02:04)
[2018-12-21] MEDS: HYDROCORTISONE 0.5% 28.35 GM CR TOP ×2 (03:21→21:12)
[2018-12-21] MEDS: traMADol 50 MG TAB PO ×3 (05:08→21:05)
[2018-12-21] MEDS: SPIRONOLACTONE 25 MG TAB PO ×2 (05:08→17:36)
[2018-12-21] MEDS: BUMETANIDE 1 MG TAB PO (05:08)
[2018-12-21] MEDS: GABAPENTIN 300 MG CAP PO ×3 (05:10→21:03)
[2018-12-21] MEDS: DIPHENHYDRAMINE 50 MG INJ IV ×3 (05:14→21:00)
[2018-12-21] MEDS: morphine 2 MG INJ IV (06:59)
[2018-12-21] MEDS: ACCU-CHEK XX ×3 (07:05→17:05)
[2018-12-21] MEDS: ENOXAPARIN 40 MG/0.4 ML SYG SC (09:00)
[2018-12-21] MEDS: LACTOBACILLUS RHAMNOSUS CAP PO ×3 (09:00→20:57)
[2018-12-21] MEDS: DOCUSATE SODIUM 100 MG CAP PO (09:32)
[2018-12-21] MEDS: ASPIRIN (EC) 81 MG TAB PO (09:32)
[2018-12-21] MEDS: metFORMIN 500 MG TAB PO ×2 (09:32→17:05)
[2018-12-21] MEDS: THIAMINE 100 MG TAB PO (09:32)
[2018-12-21] MEDS: SILDENAFIL 20 MG TAB PO ×2 (09:32→21:03)
[2018-12-21] MEDS: FLUTICASONE/VILANTEROL 200-25 INH DEVICE INH (09:32)
[2018-12-21] MEDS: NICOTINE (21 MG/24 HR) PATCH TRANSDERM (09:33)
[2018-12-21] MEDS: LIDOCAINE 5% PATCH TD (09:33)
[2018-12-21] MEDS: TIOTROPIUM 18 MCG CAPSULE INHA DEV INH (09:33)
[2018-12-21] MEDS: DICLOFENAC SODIUM 1% GEL 100 GM TUBE TP ×2 (09:34→20:59)
[2018-12-21] MEDS: CIPROFLOXACIN 250 MG TAB PO (17:36)
[2018-12-21] MEDS: MONTELUKAST 10 MG TAB PO (20:57)
[2018-12-22] MEDS: LORAZEPAM 0.5 MG TAB PO (01:46)
[2018-12-22] MEDS: GABAPENTIN 300 MG CAP PO ×2 (05:46→13:22)
[2018-12-22] MEDS: DIPHENHYDRAMINE 50 MG INJ IV ×2 (05:46→12:35)
[2018-12-22] MEDS: CIPROFLOXACIN 250 MG TAB PO (05:46)
[2018-12-22] MEDS: traMADol 50 MG TAB PO ×2 (05:47→13:23)
[2018-12-22] MEDS: SPIRONOLACTONE 25 MG TAB PO (05:50)
[2018-12-22] MEDS: BUMETANIDE 1 MG TAB PO (05:50)
[2018-12-22] MEDS: ACCU-CHEK XX ×2 (08:42→12:38)
[2018-12-22] MEDS: ASPIRIN (EC) 81 MG TAB PO (08:43)
[2018-12-22] MEDS: DOCUSATE SODIUM 100 MG CAP PO (08:43)
[2018-12-22] MEDS: THIAMINE 100 MG TAB PO (08:43)
[2018-12-22] MEDS: metFORMIN 500 MG TAB PO (08:44)
[2018-12-22] MEDS: SILDENAFIL 20 MG TAB PO (08:44)
[2018-12-22] MEDS: ENOXAPARIN 40 MG/0.4 ML SYG SC ×2 (08:45→08:59)
[2018-12-22] MEDS: NICOTINE (21 MG/24 HR) PATCH TRANSDERM (08:46)
[2018-12-22] MEDS: LIDOCAINE 5% PATCH TD (08:46)
[2018-12-22] MEDS: LACTOBACILLUS RHAMNOSUS CAP PO (08:46)
[2018-12-22] MEDS: FLUTICASONE/VILANTEROL 200-25 INH DEVICE INH (08:47)
[2018-12-22] MEDS: TIOTROPIUM 18 MCG CAPSULE INHA DEV INH (08:47)
[2018-12-22] MEDS: DICLOFENAC SODIUM 1% GEL 100 GM TUBE TP (08:48)
== END 2018-12-22 14:50 | disposition home health service (06) | DRG 291 ==
LOC: E/R 09:43 → MS3 12-07 17:09 → TEL 09:47 → 6WM 18:56
DX: I11.0 Hypertensive heart disease with heart failure (principal); J96.91 Respiratory failure, unspecified with hypoxia; Z68.44 Body mass index [BMI] 60.0-69.9, adult; N30.00 Acute cystitis without hematuria; J45.51 Severe persistent asthma with (acute) exacerbation; F33.2 Major depressive disorder, recurrent severe without psychotic features; E66.2 Morbid (severe) obesity with alveolar hypoventilation; I27.20 Pulmonary hypertension, unspecified; E11.8 Type 2 diabetes mellitus with unspecified complications; G47.33 Obstructive sleep apnea (adult) (pediatric); Z72.0 Tobacco use; I50.33 Acute on chronic diastolic (congestive) heart failure; E88.81 Metabolic syndrome and other insulin resistance; Z87.891 Personal history of nicotine dependence; F43.10 Post-traumatic stress disorder, unspecified; R25.1 Tremor, unspecified; Z76.5 Malingerer [conscious simulation]; F41.9 Anxiety disorder, unspecified; M25.562 Pain in left knee
CPT/HCPCS: 36600; 71045; 73560; 76641-50; 80048; 80053; 81001; 82550; 82553; 82803; 82962; 83036; 83735; 83880; 84100; 84443; 84484; 85025; 85610; 86038; 86430; 87070; 87086; 93306; 94640; 94660; 94664; 97110; 97116; 97162; 97167; 97530; 97535; 99285-25